=== PATIENT | female | born 1950 | race Caucasian/White ===

== ENCOUNTER 2022-03-30 09:48 | Outpatient (CLI) | payer MEDICARE, BC, SELFPAY ==
--- NOTE | 2022-03-30 10:15 | CRLHL7_ITS ---
For Patients: As a result of the Century Cures Act, medical imaging exams and procedure reports are released immediately into your electronic medical record. You may view this report before your referring provider. If you have questions, please contact your health care provider. INDICATION: Fall. COMPARISON: 11/02/2021. TECHNIQUE: Sagittal T1, T2, and STIR sequences. Axial T1 and T2 weighted sequences. FINDINGS: Degenerative grade 1 anterolisthesis of L4 on L5 and L5 on S1 measures approximate 5 mm. Otherwise, normal alignment. No fractures. No vertebral body loss of height. No evidence injury. No suspicious osseous lesions. Normal conus terminates at L1-2. T12-L1: No spinal canal or neural foraminal narrowing. L1-2: Disc degeneration posterior disc bulge. No narrowing of spinal canal. Mild narrowing of the bilateral foramina. Mild facet arthropathy. L2-3: Disc degeneration and posterior disc bulge. Moderate narrowing of spinal canal. Mild narrowing of the bilateral foramina. L3-4: Disc degeneration and posterior disc bulge. Moderate narrowing of spinal canal. Moderate right and mild left neural foraminal narrowing. Potential impingement of the exiting right L3 nerve root. Mild facet arthropathy. L4-5: Grade 1 anterolisthesis. Disc degeneration with unroofed posterior disc bulge. Combined facet arthropathy, there is moderate severe narrowing of spinal canal. Impingement of the traversing L5 nerve roots bilaterally. Moderate severe right and [id number] left neural foraminal narrowing. Impingement of the exiting right L4 nerve root. Severe facet arthropathy. L5-S1: Grade 1 anterolisthesis. Disc degeneration and posterior disc herniation. No narrowing of spinal canal. No impingement of the traversing S1 nerve roots. Mild to moderate narrowing of the bilateral foramina. Moderate facet arthropathy. Normal visualized SI joints. Right psoas muscle atrophy. IMPRESSION: 1. Degenerative grade 1 anterolisthesis of L4 on L5 and L5 on S1. 2. Otherwise, normal alignment. No fractures. 3. Stable lumbar spondylosis. 4. At L2-3, moderate narrowing of spinal canal 5. At L3-4, moderate narrowing of spinal canal. Moderate right and mild left neural foraminal narrowing. Potential impingement of the exiting right L3 nerve root 6. At L4-5, moderate to severe narrowing of spinal canal. Impingement of the traversing L5 nerve roots. Moderate severe right and [id number] left neural foraminal narrowing. Impingement of the exiting right L4 nerve root 7. At L5-S1, mild to moderate narrowing of the bilateral neural foramina Dictated by Demetri Wilson MD @ 03/30/2022 11:02:13 PM (Electronically Signed)
== END 2022-03-30 09:49 | disposition home or self-care (01) ==
LOC: MRI 09:53
PROVIDERS: PCP Internal Medicine; Visit Provider Neurological Surgery
DX: M41.86 Other forms of scoliosis, lumbar region (principal); M47.896 Other spondylosis, lumbar region; M51.26 Other intervertebral disc displacement, lumbar region; M51.27 Other intervertebral disc displacement, lumbosacral region
CPT/HCPCS: 72148

== ENCOUNTER 2022-05-24 10:28 | Outpatient (CLI) | payer MEDICARE, BC, SELFPAY ==
[2022-05-24 17:55] LABS: Chloride* 104 mmol/L (96-114); Potassium* 4.4 mmol/L (3.6-5.1); Sodium* 138 mmol/L (135-149)
[2022-05-24 17:58] LABS: Blood Urea Nitrogen* 20 mg/dL (7-30); Carbon Dioxide* 26 mmol/L (20-32); Creatinine* 0.7 mg/dL (0.5-1.5); Estimated Glomerular Filt Rate 92 ml/min
[2022-05-24 17:59] LABS: Calcium* 10.4 mg/dL (8.4-10.6); Glucose* 108 mg/dL (60-115)
== END 2022-05-24 10:29 | disposition home or self-care (01) ==
LOC: NFLDREF 10:29
PROVIDERS: PCP Internal Medicine; Visit Provider Internal Medicine
DX: Z01.818 Encounter for other preprocedural examination (principal); I10 Essential (primary) hypertension
CPT/HCPCS: 80048

== ENCOUNTER 2023-11-06 09:33 | Outpatient (CLI) | payer MEDICARE, BC, SELFPAY ==
--- OUTSIDE RECORDS SUMMARY | 2023-11-06 09:46 | XMS_ITS | Encounter Summary ---
Author Name Unknown Organization [facility] Address [address] [place] [address] Care Team Providers Care Brim Stretching Machine Operator Name Role Phone Chirag Paz MD Primary Care Provider [phone]- [phone] Encounter Details Date Type Department Care Team (Latest Contact Info) Description 08/04/2017 Consent for Procedure/Treatm ent [facility] [address] [place] [id number] CV IMMUNIZATION RECORD Social History Tobacco Use Types Packs/Day Years Used Date Smoking Tobacco: Former Cigarettes 0.5 10 0 04/03/2007 - 04/03/2017 Smokeless Tobacco: Never Alcohol Use Standard Drinks/Week Comments Yes 1 (1 standard drink = 0.6 oz pur e alcohol) once a month Sex and Gender Information Value Date Recorded Sex Assigned at Not on file Gender Identity Not on file Sexual Orientation Not on file documented as of this encounter Plan of Treatment Not on file documented as of this encounter Visit Diagnoses Not on filedocumented in this encounter Care Teams Brim Stretching Machine Operator Relationship Specialty Start Date End Date Chirag Paz MD [address] [place] [address] PCP - General 08/01/17 documented as of this encounter
--- OUTSIDE RECORDS SUMMARY | 2023-11-06 09:46 | XMS_ITS | Referral Summary ---
Author Name Unknown Organization [facility] Address [address] [facility] [place] [address] Care Team Providers Care Pin Worker Name Role Phone Chirag Paz MD Primary Care Provider Allergies Active Allergy Reactions Criticality Noted Date Comments Animal Dander Itching High 09/09/2008 Gabapentin Dizziness Low 02/24/2021 Morphine Itching Medium 02/24/2021 Oxycodone Other (See Comments) High 02/24/2021 Other reaction(s): Mental Status Change Shellfish Allergy Nausea and Vomiting High 1 Scallops /stomach upset Medications Medication Sig Dispensed Refills Start Date End Date Status cholecalciferol, vitamin D3, 1,000 unit tablet [CHOLECALCIFEROL, VITAMIN D3, 1,000 UNIT TABLET] Take 1,000 Units by mouth daily. 0 06/27/2014 Active cyanocobalamin (VITAMIN B-12) 1000 MCG tablet [CYANOCOBALAMIN (VITAMIN B-12) 1000 MCG TABLET] Take 1,000 mcg by mouth daily. 0 06/27/2014 Active sertraline (ZOLOFT) 100 MG tablet Take 100 mg by mouth daily 0 Active amLODIPine (NORVASC) 5 MG tablet Take 5 mg by mouth daily 0 Active labetalol (NORMODYNE) 100 MG tablet Take 100 mg by mouth every evening Takes at 5 PM 0 Active ibuprofen (ADVIL/MOTRIN) 200 MG tablet Take 400 mg by mouth every 8 hours as needed 0 04/26/2022 Active omeprazole (PRILOSEC) [address] capsule Take 20 mg by mouth daily as needed 0 08/10/2021 Active acetaminophen (TYLENOL) 500 MG tabletIndications:S angela stenosis, lumbar region, without neurogenic claudication Take 2 tablets (1,000 mg) by mouth 3 times daily 0 06/12/2022 Active SENNA-docusate sodium (SENNA S) 8.6-50 MG tabletIndications:D rug-induced constipation Take 1 tablet by mouth 2 times daily 0 06/12/2022 Active polyethylene glycol (MIRALAX) 17 GM/Dose powderIndications:D rug-induced constipation Take 17 g by mouth daily as needed for constipation 510 g 0 06/12/2022 Active hydrOXYzine (ATARAX) 10 MG tabletIndications:F usion of lumbar spine Take 1 tablet (10 mg) by mouth 3 times daily 60 tablet 3 07/12/2022 Active methocarbamol (ROBAXIN) 500 MG tabletIndications:F usion of lumbar spine Take 1 tablet (500 mg) by mouth 3 times daily 60 tablet 3 07/12/2022 Active gabapentin (NEURONTIN) 100 MG capsuleIndications: Spinal stenosis, lumbar region, without neurogenic claudication Take 1 capsule (100 mg) by mouth 3 times daily And 200mg qhs 30 capsule 0 07/16/2022 Active HYDROmorphone (DILAUDID) 2 MG tabletIndications:F usion of lumbar spine Take 1 tablet (2 mg) by mouth every 3 hours 6 tablet 0 07/25/2022 Active Active Problems Problem Noted Date Diagnosed Date AVM (arteriovenous malformation) brain 2 GERD (gastroesophageal reflux disease) 2 History of adenomatous polyp of colon 07/12/2022 History of migraine headaches 07/12/2022 Lumbar degenerative disc disease 07/12/2022 Nicotine dependence 07/12/2022 Osteopenia 07/12/2022 Reflux 07/12/2022 Smoking hx 07/12/2022 Status post cervical spinal arthrodesis 07/12/20 22 Obesity 07/12/2022 Adenomatous polyp 06/18/2022 Overview: 02-20-13 Second screening no polyps. 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 Hypoxia 06/18/2022 Cervical myelopathy 06/14/2022 Peripheral vascular disease (H24) 06/14/2022 Fusion of spine, site unspecified 06/07/2022 Osteoporosis 01/05/2022 Low back pain 01/01/2022 Leg pain, right 11/24/2021 Generalized weakness 11/17/2019 History of hepatitis 07/26/2018 Depression with anxiety 02/11/2018 Ataxic gait 02/11/2018 Hyperlipidemia 02/11/2018 Complicated grief 01/08/2018 Anxiety 08/07/2017 Chronic constipation 08/07/2017 Sleep disturbance 08/07/2017 Chronic ethmoidal sinusitis 10/09/2010 Overview: Dr. Cerda's plan on 11/20/2010: Chronic ethmoid and frontal sinusitis, now status post frontal sinusotomy and partial ethmoidectomy and placement of stratus catheter with an excellent result. I have recommended that she begin Flonase and follow up with me in 2 months' time. Notify me for any decline in her condition in the meantime. Major depressive disorder, recurrent episode, mi ld (H24) 08/21/2007 Diarrhea Overview: Created by Conversion Overweight Overview: Created by Conversion Rheumatoid arthritis Overview: Created by Conversion Carpal Tunnel Syndrome Overview: Created by Conversion Fatigue Overview: Created by Conversion Peripheral Neuropathy Overview: Created by Conversion Replacement Utility updated for latest IMO load Abnormal Glucose Overview: Created by Conversion Myalgia And Myositis Overview: Created by Conversion Immunizations Name Administration Dates Next Due COVID-19 MONOVALENT 12+ (Pfizer) 022,08/15/2021,12/27/2020,2020 Flu, Unspecified 10/10/2010,08/26/2008 Influenza Vaccine 65+ (Fluzone HD) 07/04/2021 Influenza Vaccine >6 months,quad, PF 06/24/2021 TDAP (Adacel,Boostrix) 08/26/2008 Social History Tobacco Use Types Packs/Day Years Used Date Smoking Tobacco: Former Cigarettes Smokeless Tobacco: Never Comments:Occas Nicorette gum Alcohol Use Standard Drinks/Week Comments Yes 0 (1 standard drink = 0.6 oz pur e alcohol) Occas wine Adolescent Education Answer Date Record ed Getting School Help Needed Not on file 06/29 Sex and Gender Information Value Date Recorded Sex Assigned at Not on file Gender Identity Not on file Sexual Orientation Not on file Last Filed Vital Signs Vital Sign Reading Time Taken Comments Blood Pressure 156/92 07/24/2022 7:05 AM CDT Pulse 70 07/24/2022 7:05 AM CDT Temperature 36.8 ??C (98.2 ??F) 07/24/2022 7:05 AM CD T Respiratory Rate 16 07/24/2022 7:05 AM CDT Oxygen Saturation 94% 07/24/2022 7:05 AM CDT Inhaled Oxygen Concentration - - Weight 84.5 kg (186 lb 3.2 oz) 07/24/2022 7:05 A M CDT Height 157.5 cm (5' 2.01) 07/24/2022 7:05 AM CD T Body Mass Index 34.05 07/24/2022 7:05 AM CDT Plan of Treatment Not on file Medical Devices Implanted Type Area Director Of Business Systems Device Identifier Shelf Expiration Date Model / Serial / Lot Screw Bn 45mm 7.5mm St Cls 2 Thrd 127mm Ns Pathloc-L Spne Lf - [id number] Implanted:Qty : 1 on 06/07/2022 by Samia Heredia MD at [facility] Metallic Hardware/Anc hor N/A: Spine Lumbar AEGIS SPINE 06/16/2025 [id number] S / / 110mm Won Implanted:Qty : 1 on 06/07/2022 by Samia Heredia MD at [facility] N/A: Back [id number] Advance Directives For more information, please contact: [phone] Latest Code Status on File Code Status Date Activated Date Inactivated Comments Full Code 06/07/2022 3:21 PM 06/11/2022 3:15 PM All b asic and advanced life-sustaining interventions are performed as appropriate Question Answer Comments Code status determined by: Discussion with patient/ legal decision maker Care Teams Pin Worker Relationship Specialty Start Date End Date Chirag Paz MD [facility] [address] [place] [address] PCP - General Emergency Medicine 06/07/22
--- OUTSIDE RECORDS SUMMARY | 2023-11-06 09:46 | XMS_ITS | Clinical Summary ---
Author Name Unknown Organization [place] Address [address] [facility] [place] [address] Care Team Providers Care Dye Can Operator Name Role Phone Chirag Paz MD [...] 07/24/2022 7:05 AM CDT Plan of Treatment Health Maintenance Due Date Last Done Comments ADVANCE CARE PLANNING 1950 ANNUAL REVIEW OF HM ORDERS 1950 CT COLONOGRAPHY 1950 DEPRESSION ACTION PLAN 1950 DEXA 1950 FIT 1950 FLEX SIG 1950 PHQ-9 1950 sDNA (Cologuard) 1950 HEPATITIS C SCREENING 1968 LUNG CANCER SCREENING 2000 ZOSTER IMMUNIZATION (1 of 2) 2000 RSV VACCINE ( & 60+) (1 - 1-dose 60+ series) 2010 MAMMO SCREENING 01/06/2015 01/06/2013 FALL RISK ASSESSMENT 2015 MEDICARE ANNUAL WELLNESS VISIT 2015 Pneumococcal Vaccine: 65+ Years (1 of 1 - PCV) 2015 LIPID 01/05/2018 01/05/2013 COLONOSCOPY 02/20/2023 02/20/2013 COLORECTAL CANCER SCREENING 02/20/2023 COVID-19 Vaccine (2022- season) 2023 01/24/2022, 08/15/2021, 12/27/2020, Additional history exists INFLUENZA VACCINE (#1) 2023 , 06/24/2021, 10/10/2010, Additional history exists GLUCOSE 06/09/2025 06/09/2022, 06/08/2022 DTAP/TDAP/TD IMMUNIZATION (4 - Td or Tdap) 05/24/2032 05/24/2022, 05/10/2015, 08/26/2008 HPV IMMUNIZATION Aged Out No longer e ligible based on patient's age to complete this topic IPV IMMUNIZATION Aged Out No longer e ligible based on patient's age to complete this topic MENINGITIS IMMUNIZATION Aged Out No l onger eligible based on patient's age to complete this topic RSV MONOCLONAL ANTIBODY Aged Out No l onger eligible based on patient's age to complete this topic Medical Devices Implanted Type Area Android Software Engineer Device Identifier Shelf Expiration Date Model / Serial / Lot Screw Bn 45mm 7.5mm St Cls 2 Thrd 127mm Ns Pathloc-L Spne Lf - [id number] Implanted:Qty : 1 on 06/07/2022 by Samia Heredia MD at [facility] Metallic Hardware/Anc hor N/A: Spine Lumbar AEGIS SPINE 06/16/2025 [id number] S / / 110mm Won Implanted:Qty : 1 on 06/07/2022 by Samia Heredia MD at [facility] N/A: Back [id number] / / [id number] Advance Directives For more information, please contact: [phone] Latest Code Status on File Code Status Date Activated Date Inactivated Comments Full Code 06/07/2022 3:21 PM 06/11/2022 3:15 PM All b asic and advanced life-sustaining interventions are performed as appropriate Question Answer Comments Code status determined by: Discussion with patient/ legal decision maker Care Teams Dye Can Operator Relationship Specialty Start Date End Date Chirag Paz MD [facility] [address] [place] [address] PCP - General Emergency Medicine 06/07/22
--- OUTSIDE RECORDS SUMMARY | 2023-11-06 09:46 | XMS_ITS | Encounter Summary ---
Author Name Unknown Organization [facility] Address [address] [place] [address] Care Team Providers Care Acid Splicer Name Role Phone Chirag Paz MD Primary Care Provider +1- [phone] Encounter Details Date Type Department Care Team (Late st Contact Info) Description 06/13/2022 Lab Requisition [facility] [address] [facility] [place], [place] [id number] Jailene Lux, REGULATORY MANAGER, INDEPENDENT PRODUCER [address] [place] [address] Anemia, unspecified; Essential (primary) hypertension Social History Tobacco Use Types Packs/Day Years [...] on file documented as of this encounter Procedures Procedure Name Priority Date/Time Associated Diagnosis Comments BASIC METABOLIC PANEL Routine 06/15/2022 7:20 AM CDT Anemia, unspecified Essential (primary) hypertension (HRC) HEMOGLOBIN, BLOOD Routine 06/15/2022 7:2 0 AM CDT Anemia, unspecified Essential (primary) hypertension (HRC) documented in this encounter Results * (ABNORMAL) Basic Metabolic Panel (06/15/2022 7:20 AM CDT) Sodium 141 136 - 145 mmol/L 06/15/2022 1:15 PM CDT [facility] Potassium 4.8 3.5 - 5.1 mmol/L 06/15/2022 1:15 PM CDT [facility] Chloride 106 98 - 109 mmol/L 06/15/2022 1:15 PM CDT [facility] CO2 25 20 - 29 mmol/L 06/15/2022 1:15 PM CDT [facility] Anion Gap 10 7 - 16 mmol/L 06/15/2022 1:15 PM CDT [facility] Calcium 9.7 8.4 - 10.4 mg/dL 06/15/2022 1:15 PM CDT [facility] BUN 25 7 - 26 mg/dL 06/15/2022 1:15 PM CDT [facility] Creatinine 0.70 0.55 - 1.02 mg/dL 06/15/2022 1:15 PM CDT [facility] GFR, Estimated >60 >60 mL/min/1.7 3m2 06/15/2022 1:15 PM CDT [facility] Glucose 116(H) 70 - 100 mg/dL 06/15/2022 1:15 PM CDT [facility] Comment:The given reference range is for the fasting state. Non-fasting reference range for glucose is 70 - 180 mg/dL. Hours Fasting 0 06/15/2022 1:15 PM CDT [facility] Blood Venipuncture / Unknown 06/15/2022 7:20 AM CDT 06/15/2022 12:43 PM CDT Jailene Lux REGULATORY MANAGER, INDEPENDENT PRODUCER LAB_[facility] [address] * Hemoglobin, Blood (06/15/2022 7:20 AM CDT) Hemoglobin 12.6 12.0 - 15.5 g/dL 06/15/2022 1:04 PM CDT [facility] Blood Venipuncture / Unknown 06/15/2022 7:20 AM CDT 06/15/2022 12:46 PM CDT Jailene Lux APRN, CNP [facility] [address] documented in this encounter Visit Diagnoses Diagnosis Anemia, unspecified Essential (primary) hypertension (HRC) Unspecified essential hypertension documented in this encounter Care Teams Acid Splicer Relationship Specialty Start Date End Date Chirag Paz MD [address] [place] [address] PCP - General 08/01/17 documented as of this encounter
--- OUTSIDE RECORDS SUMMARY | 2023-11-06 09:46 | XMS_ITS | Encounter Summary ---
Author Name Unknown Organization [facility] Address [address] [place] [address] Care Team Providers Care Collections Agent Name Role Phone Chirag Paz MD Primary Care Provider +1- [phone] Encounter Details Date Type Department Care Team (Latest Contact Info) Description 08/04/2017 Consent for Procedure/Treatm ent [facility] [address] [place] [id number] CV CONSENT FOR UESE OF PSYCHOTROPIC MED Social History Tobacco Use Types Packs/Day Years [...] on filedocumented in this encounter Care Teams Collections Agent Relationship Specialty Start Date End Date Chirag Paz MD [address] [place] [address] PCP - General 08/01/17 documented as of this encounter
--- OUTSIDE RECORDS SUMMARY | 2023-11-06 09:46 | XMS_ITS | Encounter Summary ---
Author Name Unknown Organization [facility] Address [address] [place] [address] Care Team Providers Care Alley Tender Name Role Phone Chirag Paz MD Primary Care Provider +1- [phone] Encounter Details Date Type Department Care Team (Late st Contact Info) Description 07/06/2022 Lab Requisition [facility] [address] [facility]. [place], [place] [address] Jailene Lux, ETHICAL HACKER, DISPATCH MANAGER [address] [place] [address] Anemia, unspecified; Essential (primary) hypertension Social History [...] Associated Diagnosis Comments BASIC METABOLIC PANEL Routine 07/09/2022 7:22 AM CDT Anemia, unspecified Essential (primary) hypertension (HRC) HEMOGLOBIN, BLOOD Routine 07/09/2022 7:2 2 AM CDT Anemia, unspecified Essential (primary) hypertension (HRC) documented in this encounter Results * Basic Metabolic Panel (07/09/2022 7:22 AM CDT) Sodium 141 136 - 145 mmol/L 07/09/2022 2:43 PM CDT [facility] Potassium 4.1 3.5 - 5.1 mmol/L 07/09/2022 2:43 PM CDT [facility] Chloride 106 98 - 109 mmol/L 07/09/2022 2:43 PM CDT [facility] CO2 25 20 - 29 mmol/L 07/09/2022 2:43 PM CDT [facility] Anion Gap 10 7 - 16 mmol/L 07/09/2022 2:43 PM CDT [facility] Calcium 8.9 8.4 - 10.4 mg/dL 07/09/2022 2:43 PM CDT [facility] BUN 17 7 - 26 mg/dL 07/09/2022 2:43 PM CDT [facility] Creatinine 0.69 0.55 - 1.02 mg/dL 07/09/2022 2:43 PM CDT [facility] Glucose 96 70 - 100 mg/dL 07/09/2022 2:43 PM CDT [facility] Comment:The given reference range is for the fasting state. Non-fasting reference range for glucose is 70 - 180 mg/dL. Hours Fasting Unknown 07/09/2022 2:43 PM CDT [facility] GFR, Estimated >60 >60 mL/min/1.7 3m2 07/09/2022 2:43 PM CDT [facility] Blood Venipuncture / Unknown 07/09/2022 7:22 AM CDT 07/09/2022 1:30 PM CDT Jailene Lux ETHICAL HACKER, DISPATCH MANAGER LAB_1 [facility] [address] * Hemoglobin, Blood (07/09/2022 7:22 AM CDT) Hemoglobin 12.3 12.0 - 15.5 g/dL 07/09/2022 2:09 PM CDT [facility] Blood Venipuncture / Unknown 07/09/2022 7:22 AM CDT 07/09/2022 1:33 PM CDT Jailene Lux APRN, CNP [facility] [address] documented in this encounter Visit Diagnoses Diagnosis Anemia, unspecified Essential (primary) hypertension (HRC) Unspecified essential hypertension documented in this encounter Care Teams Alley Tender Relationship Specialty Start Date End Date Chirag Paz MD [address] [place] [address] PCP - General 08/01/17 documented as of this encounter
--- OUTSIDE RECORDS SUMMARY | 2023-11-06 09:46 | XMS_ITS | Data Portability ---
Author Name Unknown Address [address] [place] [id number] Phone [phone] Organization [facility] - (IP) Address [address] [place] [address] Care Team Providers Care Elocution Teacher Name Role Phone CAROLYN PIPER Primary Care Provider AVILA MORGAN Referring Provider Assessment Encounter Date Assessment Date Assessment LastModified by Organization Details LastModified Time 11/30/2019 11/30/2019 A 69-year-old female, status post a right posterior temporal parietal craniectomy by Dr. Porter on 11/16/2019 for IPH with small cortical AVM. She presents today for a staple removal. Her incision is healing well and serene were removed today without issue. Discussed that we do not want her at this time to lift anything greater than 10 pounds and she should avoid bending and twisting activities, so doing her laundry is not an activity that she should be engaged at this time and it is okay for her to do sitting exercises, but again avoiding the bending, twisting activities as so as to avoid increasing her into cranial pressure would be advised. We will see her back on 12/15/2019 for her postoperative appointments. The patient understands and agrees with this plan. [email or web address] Not available 12/01/2019 09:25:18 12/15/2019 12/15/2019 This is a 69-year-old female, who presents back to Neurosurgery Clinic for continued follow-up after a right craniotomy for removal of intraparenchymal hemorrhage and arteriovenous malformation. Overall, she seems to be doing quite well and seems to be healing as expected from her surgery. She is doing quite well and living independently at home. She has no complaints or questions at this point. I did discuss continued follow-up including a repeat formal angiogram in approximately two months for follow-up of her AVM resection. I also would like follow-up on her incidentally found small right frontal AVM. We may discuss possible Gamma knife radiation treatment to that area depending on her next formal angiogram. If she has any further questions or concerns, I would be happy to see her back in Neurosurgery Clinic at any time. Otherwise, I will plan on follow-up with her after her angiogram in two months. Not available 12/16/2019 10:45:08 03/01/2020 03/01/2020 This is a 69-year-old female who presents back to neurosurgery clinic for scheduled follow-up. She underwent a right parietal craniotomy for removal of an AVM after spontaneous hemorrhage back in October. Overall, she seems to be doing quite well and is healing well after surgery. She did recently undergo a scheduled formal angiogram for follow-up. This did not show any residual or recurrent right parietal AVM. 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 I do not believe that will need any treatment at this time. I will plan on seeing her back in neurosurgery clinic in 1 year with another formal angiogram. If she has any new or worsening symptoms, any other questions or concerns, I would be happy to see her back in neurosurgery clinic at any time. Not available 03/02/2020 17:08:09 02/28/2021 02/28/2021 ASSESSMENT 1. Presenting to [facility] on November 11, 2019, with spontaneous rupture and intraparenchymal hemorrhage in the right parietal area with imaging revealing an anterior venous malformation. 2. Status post right parietal craniotomy for resection of AVM and spontaneous hemorrhage on November 16, 2019, by Dr. Porter. 3. 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 4. 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 PLAN 1. Harleen will be seen back on an as-needed basis, and she is in agreement with this plan. No repeat formal angiograms are needed at this time. 2. She may come off of aspirin from our standpoint. There is no neurosurgical reason to be on this medication. 3. These records will be forwarded to her primary care doctor, Dr. Piper in [place]. I have described to Harleen in detail the signs and symptoms that would prompt an urgent call to our office or a trip to the ED. She will call back with any further questions or concerns. 4. Harleen did mention to us at the end of our appointment that she is having some low back pain issues. We did discuss with her that our clinic can treat these issues. If she would like to be seen by our clinic, we would recommend that she obtain a copy of her last MRI and schedule an appointment. [email or web address] Not available 02/28/2021 13:59:08 Plan of Treatment Reminders Order Date Submit Date Provider Last Modified By Organization Details Last Modified Time Details Appointments None record ed. Lab None record ed. Referral None record ed. Procedures None record ed. Surgeries None record ed. Imaging None record ed. Medication Orders None record ed. Patient TargetsNo targets recorded. Patient InstructionsNo instructions recorded. Reason for Referral Interventional Radiologist Yosi baum for History of craniotomy repeat formal angiogram DX: PLEASE CALL PT SCHEDULE AN APPT/ S/P RIGHT CRANIOTOMY FOR REMOVAL OF INRAPARENCHYMAL HEMORRHAGE AND AVM Referring Physician: Franco Porter, Neurosurgery, Encounter Date: 12/15/2019 Results Created Date Observation Date Name Description Value Unit Range Abnormal Flag LastModifiedBy Organization Detail LastModifiedTime 11/17/19 20 11/16/2019 imagi ng/di agnos tic resul t No observ ation record ed. [email or web address] [facility] [address] [place] [address], [address], 11/17/2019 12:17:31 11/18/19 20 11/17/2019 CT, head, w/o contr ast No observ ation record ed. roland gao [facility] [address], [place], [address], 11/18/2019 11:03:43 12/15/19 20 12/15/2019 CT, brain , w/o contr ast No observ ation record ed. roland gao [facility] [address], [place], [address], 12/15/2019 15:32:44 02/27/20 20 02/26/2020 imagi ng/di agnos tic resul t No observ ation [facility]. [facility] [address] [place] [address] [place], [address], 02/29/2020 10:50:21 02/26/20 21 02/24/2021 imagi ng/di agnos tic resul t No observ ation record ed. [email or web address] Not Available 02/27/2021 10:05:13 Result Notes None recorded. Procedures Surgical History None recorded. Imaging Results Imaging Date Name Status LastModified by Organiz ation Details LastModified Time 11/16/2019 [facility] [address] [place] [address], [address], 11/17/2019 12:17:31 11/17/2019 CT, head, w/o contrast completed [facility] [address], [place], [address], 11/18/2019 11:03:43 12/15/2019 CT, brain, w/o contrast completed [facility] [address] [facility] [address], [place], [address], 12/15/2019 15:32:44 02/26/2020 imaging[facility]diagn [facility]stic [facility] [address], [place], [address], 02/29/2020 10:50:21 02/24/2021 imaging/diagn ostic result completed [email or web address] Information not available 02/27/2021 10:05:13 Procedure Notes None recorded. Medical Equipment None Reported. Medications Name Sig Start Date Stop Date Status Note LastModified by Organization Details LastModified Time lamotrigine 200 mg tablet active Not Available Not Available Not Available tizanidine 2 mg tablet active Not Available Not Available Not Available hydrocodone 5 mg-acetaminophen 325 mg tablet active Not Available Not Availabl e Not Available clonazepam 0.5 mg tablet active Not Available Not Available Not Available amlodipine 5 mg tablet active Not Available Not Available Not Available meloxicam 7.5 mg tablet active Not Available Not Available Not Available lorazepam 0.5 mg tablet active Not Available Not Available Not Available baclofen 10 mg tablet active Not Available Not Available Not Available pramipexole 0.125 mg tablet active Not Available Not Available No t Available gabapentin 300 mg capsule active Not Available Not Available Not Available omeprazole 20 mg capsule,delayed release active Not Available Not Available Not Available methylprednisolone 4 mg tablets in a dose pack active Not Available Not Available No t Available labetalol 100 mg tablet active Not Available Not Available Not Available lamotrigine 100 mg tablet active Not Available Not Available Not Available oxycodone 5 mg tablet active Not Available Not Available Not Available escitalopram 10 mg tablet active Not Available Not Available Not Available escitalopram 20 mg tablet active Not Available Not Available Not Available Xarelto 10 mg tablet active Not Available Not Available Not Available baclofen 5 mg tablet active Not Available Not Available Not Available Vitals None Recorded Social History None recorded. Functional Status None recorded. Mental Status None recorded. Family History Nothing Reported. Medical History No medical history recorded. Gynecological HistoryNo gynecological history recorded. Obstetrics History GPAL:G 0 P 0 0 0 0 Past Encounters Encounter ID Performer Location Encounter Start Date Encounter Closed Date Diagnosis/Indication [id number] Chris Goetz [facility] [id number] [place] [id number] 11/30/2019 13:42:04 11/30/2019 16:19:47 [id number] Altagracia Severino [facility] [id number] [place] [address], [place] [address] 12/15/2019 12:50:06 12/15/2019 13:05:38 [id number] Ana Maríavalerie Celesting [facility] [id number] [place] [address], [place] [address] 03/01/2020 11:17:59 03/01/2020 11:27:44 [id number] Ana Maríavalerie Celesting [facility] [id number] [place] [address], [place] [address] 02/28/2021 11:29:42 02/28/2021 12:44:52 Health Concerns Section Related Observation LastModified by Organization Detai ls LastModified Time None Recorded Concern Status LastModified by Organization Details LastModified Time None Recorded Advance Directives Directive None Recorded Payers Encounter Date Sequence Insurance Name Policy Number Policy Conley Covered Member ID Conley Member ID Guarantor Name 02/28/2021 1 [id number] [id number] Harleen Moonolo [id number] Harleen Monetccolo 03/01/2020 1 [id number] [id number] Harleen Monetccolo [id number] Harleen Little Ruccolo 12/15/2019 1 [place] [id number] Harleen Monetccolo [id number] Harleen Little Ruccolo 11/30/2019 1 [place] [id number] Harleen oMnetccolo [id number] Harleen Little Ruccolo Notes Date Note Type Note Provider Name and Address Organization Details Recorded Time 11/30/2019 text/html HPI Notes: I had the pleasure of seeing Harleen Gibson in [facility] today for staple removal. Harleen is a pleasant 69-year-old female, status post a right posterior temporal parietal craniotomy for IPH with a small cortical AVM performed by Dr. Porter on 11/16/2019. She is approximately two weeks out from that procedure. The patient states that the bulk of her headaches have resolved since this last week and prior to that she only had small headaches as compared to preoperatively. She does continue to have quite a bit of dizziness and therefore, uses a walker. She has been engaging in home exercises and goes the senior center and does some sitting yoga. She has been engaging and doing her on housework, which involves some bending over and doing her laundry and lifting closed basket. She denies any nausea, vomiting or issues with her incision and denies any motor or sensory problems. SONIDO Monson - [facility] 12/01/2019 09:25:33 12/15/2019 text/html HPI Notes: I had the pleasure of seeing Harleen in Neurosurgery Clinic today. She is a 69-year-old female, who is one month out from a right craniotomy for removal of an intraparenchymal hemorrhage and associated arteriovenous malformation. Overall, she seems to be doing quite well and seems to be recovering as expected from her procedure. She is living back at home now and seems to be doing just fine. She has no complaints. All of her headaches and dizziness have dramatically improved. She has no further concerns. SONIDO Martínez - [facility] 12/16/2019 10:45:35 03/01/2020 text/html HPI Notes: I had the pleasure of seeing Harleen back in neurosurgery clinic today. She is a 69-year-old female who underwent a craniotomy for resection of an AVM back in late October of this year. She presented with a spontaneous hemorrhage and was found to have a small right parietal AVM. Patient did very well postoperatively and returns to neurosurgery clinic today for scheduled follow-up. She recently underwent a formal angiogram for follow-up. She has not had any symptoms and overall seems to be recovering well from surgery. She has no complaints today. SONIDO Martínez - [facility] 03/02/2020 17:08:41 02/28/2021 text/html HPI Notes: Ms. Yosi jones returns to Dr. Porter's clinic, having last been seen on March 01, 2020. Of note, she is status post a right parietal craniotomy for resection of AVM that had spontaneously ruptured on November 16, 2019, by Dr. Porter. Also of note, in the last year she had a fall and fractured her left wrist in April or May 2020. She is status post open reduction and internal fixation for this. She also recently underwent a right hip surgery in November 2020 and was told that her femur fractured while inserting the metal alexandra and she has had some ongoing pain and numbness and tingling in the right anterior thigh since that time and is walking with a limp. In regards to her craniotomy procedure, Harleen did well after surgery. She then had a followup with Dr. Porter on December 15, 2019, with a postop head CT which showed resolution of her intraparenchymal hemorrhage. When he saw her last on March 01, 2020, they reviewed a formal angiogram done through [facility], which showed no residual parietal AVM, but there was a small distal right COLLIN pial fistula. This was also noticed on imaging in October. She returns now with a 1-year followup with repeat formal angiogram. Harleen reports that she is doing well. She has no complaints of headache, nausea, vision changes, no complaints of focal weakness. No speech or language disorders. No new sensorimotor issues. SONIDO Martínez - [facility] 03/02/2021 09:28:06 OBGyn Episode No OBEpisode recorded.
--- OUTSIDE RECORDS SUMMARY | 2023-11-06 09:46 | XMS_ITS | Encounter Summary ---
Author Name Unknown Organization [facility] Address [address] [place] [address] Care Team Providers Care Dry Color Mixer Name Role Phone Chirag Paz MD Primary Care Provider [facility] Unavailable Jailene Lux APRN SENIOR MANUFACTURING TECHNICIAN Unavailable + Encounter Details Date Type Department Care Team (Late st Contact Info) Description 05/25/2022 Orders Only [facility] [address] [place] [phone] Samia Heredia MD [facility] [address] [place] [address] Pre-operative laboratory examination (Primary Dx) Social History Tobacco Use Types Packs/Day Years Used Date Smoking Tobacco: Never Assessed Sex and Gender Information Value Date Recorded Sex Assigned at Not on file Gender Identity Not on file Sexual Orientation Not on file documented as of this encounter Plan of Treatment Not on file documented as of this encounter Visit Diagnoses Diagnosis Pre-operative laboratory examination- Primary Pre-procedural laboratory examination documented in this encounter Care Teams Dry Color Mixer Relationship Specialty Start Date End Date Chirag Paz MD [facility] [address] [place] [address] PCP - General Emergency Medicine 06/07/22 [facility] [address] [place] [phone] 06/11/22 07/26/22 Jailene Lux APRN SENIOR MANUFACTURING TECHNICIAN [facility] [place] [address] Assigned Pain Medication Provider 10/01/22 03/22/23 documented as of this encounter
--- OUTSIDE RECORDS SUMMARY | 2023-11-06 09:46 | XMS_ITS | Clinical Summary ---
Author Name Unknown Organization [facility] Address [place], [place] [address] Care Team Providers Care Sheeter Machine Operator Name Role Phone José Miguel Hall MD Unavailable Unavailable Chirag Paz MD Primary Care Provider Allergies Active Allergy Reactions Criticality Noted Date Comments Cats (Fur, Dander, Saliva) Itching High 09/09/2008 Gabapentin Dizziness Low 02/24/2021 Morphine Itching Medium 02/24/2021 Oxycodone Hallucinations,Menta l Status Change High 02/24/2021 Shellfish Containing Products Nausea And Vomiting High 10/16/2010 Scallops /stomach upset Medications Medication Sig Dispensed Refills Start Date End Date Status multivitamins-calcium -iron-minerals (MULTIPLE VITAMIN, WOMENS) Tab tablet Take 1 tablet by mouth once daily. 50+ 0 09/01/2010 Active cholecalciferol (VITAMIN D3) 1,000 unit tablet Take 1,000 Units by mouth once daily. 0 Active labetaloL (TRANDATE) 100 mg tabletIndications:Non traumatic hemorrhage of cerebral hemisphere, unspecified laterality (HC) Take 1 tablet by mouth 3 times daily. 90 tablet 0 11/19/2019 Active amLODIPine (NORVASC) 5 mg tabletIndications:Non traumatic hemorrhage of cerebral hemisphere, unspecified laterality (HC),Hypertension Take 1 tablet by mouth once daily. 30 tablet 0 11/19/2019 Active omeprazole (PRILOSEC) 20 mg Delayed-Release capsule Take 1 Capsule (20 mg) by mouth once daily before a meal. 0 08/10/2021 Active cyanocobalamin (Vitamin B-12) 50 mcg tablet Take by mouth once daily. 0 08/10/2021 Active ibuprofen (ADVIL; MOTRIN) 200 mg tablet 400 mg. As directed 0 04/26/2022 Active sertraline (ZOLOFT) 100 mg tabletIndications:HEATHER (generalized anxiety disorder),Recurrent major depressive disorder, in partial remission (HC) Take 1 Tablet (100 mg) by mouth once daily. 90 Tablet 3 05/07/2023 Active Active Problems Problem Noted Date Diagnosed Date Generalized weakness 11/17/2019 ICH (intracerebral hemorrhage) 11/11/2019 Complicated grief 01/08/2018 Cervical myelopathy 08/02/2017 Cervical spinal stenosis 08/01/2017 Family history of colon cancer 02/20/2013 Overview: Father colon cancer age 50s Chronic ethmoidal sinusitis 10/09/2010 Overview: Dr. Cerda's plan on 11/20/2010: Chronic ethmoid and frontal sinusitis, now status post frontal sinusotomy and partial ethmoidectomy and placement of stratus catheter with an excellent result. I have recommended that she begin Flonase and follow up with me in 2 months' time. Notify me for any decline in her condition in the meantime. Chronic frontal sinusitis 10/09/2010 Generalized anxiety disorder 08/10/2009 Major depressive disorder, recurrent episode, mi ld 08/21/2007 Smoking hx Post-menopausal Overview: age 49 Reflux Hyperlipidemia Adenomatous polyp Overview: 02-20-13 Second screening no polyps. 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 Health Maintenance Overview: Cholesterol Screening -12/14/04 Pap and Pelvic -01/26/05 Mammogram - 12/14/04 Dexa - 07/01/03 Colonoscopy -08/03/05 f/u in 5 yrs Eye Exam - none in chart Hypertension S/P craniotomy Hypoxia Resolved Problems Problem Noted Date Diagnosed Date Resolved Date Chronic ethmoidal sinusitis 10/09/2010 11/20/2010 Dysthymic disorder 07/09/2007 7 Anxiety associated with depression 11/14/2009 Encounters Date Type Department Care Team Description 11/05/2023 1:00 PM CURATOR HERBARIUM Procedure Only [facility] [address] [place] [address] Radha Potts, Zulema Ac Acupuncture 11/05/2023 Travel 10/29/2023 11:00 AM CURATOR HERBARIUM Procedure Only [facility] [address] [place] [address] Radha Potts, Zulema Ac Acupuncture 10/29/2023 Travel 10/22/2023 1:00 PM CURATOR HERBARIUM Procedure Only [facility] [address] [place] [address] Radha Potts, Zulema Ac Acupuncture 10/22/2023 Travel 10/15/2023 1:00 PM CURATOR HERBARIUM Procedure Only [facility] [address] [place] [address] Radha Potts, Zulema Ac Acupuncture 10/15/2023 Travel 10/08/2023 1:00 PM CURATOR HERBARIUM Procedure Only [facility] [address] [place] [address] Radha Potts, Zulema Ac Acupuncture 10/08/2023 Travel 10/03/2023 11:00 AM CURATOR HERBARIUM Procedure Only [facility] [address] [place] [address] Radha Potts, Zulema Ac Acupuncture 10/03/2023 Travel 09/10/2023 10:30 AM CURATOR HERBARIUM Procedure Only [facility] [address] [place] [address] Radha Potts, Zulema Ac Acupuncture 09/10/2023 Travel 09/03/2023 11:00 AM CURATOR HERBARIUM Procedure Only [facility] [address] [place] [address] Radha Potts, Zulema Ac Acupuncture 09/03/2023 Travel 08/20/2023 1:00 PM CURATOR HERBARIUM Procedure Only [facility] [address] [place] [address] aRdha Potts, Zulema Ac Acupuncture 08/20/2023 Travel 08/13/2023 10:30 AM CURATOR HERBARIUM Procedure Only [facility] [address] [facility] [address] Radha Potts L Ac Acupuncture 08/13/2023 Travel 08/06/2023 11:00 AM CURATOR HERBARIUM Procedure Only [facility] [address] [place] [address] Anne PottsZulema Avila Ac Acupuncture 08/06/2023 Travel from Last 3 Months Immunizations Name Administration Dates Next Due Influenza, High-dose Quadrivalent Inactivated Influenza, IIV3 (Age >=3 years) 10/10/2010,08/26 Influenza, IIV4 06/24/2021 Tdap 05/10/2015,08/26/2008 Tuberculin (PPD) 08/18/2017,08/04/2017 Family History Medical History Relation Name Comments Other Brother 1 X2 with colon p olyps GI Disease Brother 2 reflux Stroke Brother 3 Cancer-colon Father 55 dx age 56 Heart Disease Father Psychiatric illness Father schizoph everardo Cancer-breast Maternal Aunt 2 37 dx age 40 Cancer-breast Maternal Grandmother 60s dx age 79 Cancer-breast Mother 60s dx ag e 69 Diabetes Mother Hyperlipidemia Mother high choleste rol Psychiatric illness Son Depressi on with suicide attempt Relation Name Status Comments Brother 1 Brother 2 Brother 3 Father (Age 56) Colon CA, other health issues Maternal Aunt 1 (Age 40) Breast CA Maternal Aunt 2 Maternal Grandmother Mother (Age 69) Breast CA, other health issues Son Social History Tobacco Use Types Packs/Day Years Used Date Smoking Tobacco: Former Cigarettes Smokeless Tobacco: Never Tobacco Cessation:Counseling Given: Not Answered Comments:stopped smoking 08/03/21. using Nicorette Alcohol Use Standard Drinks/Week Comments Yes 1 (1 standard drink = 0.6 oz pure alcohol) 2 beers sparingly during weekends PHQ-2 Answer Date Recorded PHQ-2 TOTAL SCORE 2 05/07/2023 Social Connections Answer Date Recorded Frequency of Communication with Friends and Fami ly 0 05/28/2023 Financial Resource Strain Answer Date R ecorded Difficulty of Paying Living Expenses 3 05/28/2023 Difficulty of Paying Living Expenses Not on file 05/28/2023 Food Insecurity Answer Date Recorded Worried About Running Out of Food in the Last Ye ar 1 05/28/2023 Transportation Needs Answer Date Record ed Lack of Transportation (Medical) 1 05/28/2023 Housing Stability Answer Date Recorded Unable to Pay for Housing in the Last Year 1 05/28/2023 Sex and Gender Information Value Date Recorded Sex Assigned at Not on file Gender Identity Not on file Sexual Orientation Not on file Obstetrics History Last Filed Vital Signs Vital Sign Reading Time Taken Comments Blood Pressure 114/78 05/07/2023 10:51 AM CDT Pulse 84 05/07/2023 10:51 AM CDT Temperature 36.8 ??C (98.2 ??F) 02/24/2021 9:22 AM CD T Respiratory Rate 20 02/24/2021 2:00 PM CDT Oxygen Saturation 95% 02/24/2021 2:00 PM CDT Inhaled Oxygen Concentration - - Weight 86.5 kg (190 lb 9.6 oz) 05/07/2023 10:51 AM CDT Height 154.9 cm (5' 1) 02/24/2021 9:22 AM CDT Body Mass Index 36.01 02/24/2021 9:22 AM CDT Plan of Treatment Upcoming Encounters Date Type Department Care Team (Late st Contact Info) Description 11/11/2023 2:00 PM CURATOR HERBARIUM Procedure Only [facility] [address] [place] [address] Radha Potts, L Ac [address] [place] [address] 11/19/2023 1:00 PM CURATOR HERBARIUM Procedure Only [facility] [address] [place] [address] Radha Potts, L Ac [address] [place] [address] 11/26/2023 1:00 PM CURATOR HERBARIUM Procedure Only [facility] [address] [place] [address] Radha Potts, L Ac [address] [place] [address] 12/03/2023 1:00 PM CDT Procedure Only [facility] [address] [place] [address] Radha Potts, L Ac [address] [place] [address] 12/10/2023 1:00 PM CDT Procedure Only [facility] [address] [place] [address] Radha Potts, L Ac [address] [place] [address] 12/17/2023 1:00 PM CDT Procedure Only [facility] [address] [place] [address] Radha Potts, L Ac [address] [place] [address] Health Maintenance Due Date Last Done Comments Hepatitis C screening for ag e 18-79 1968 Zoster (shingles) series for age 50+ (1 of 2) 2000 Mammogram for age 45-75 09/09/2009 09/09/2008 DEXA/DXA scan for age 65+ 2015 Medicare Wellness for age 65+ 2015 Pneumococcal series for age 65+ (1 of 1 - PCV) 2015 BMI (ht and wt on same day) for age 18+ 06/19/2018 06/19/2017 Colonoscopy through age 75 02/20/202302/20, 02/20/2013, 02/20/2013, Additional history exists COVID-19 vaccine series (2022- season) 2023 01/24/2022, 08/15/2021, 12/27/2020, Additional history exists Influenza for age 65+ 05/24/2023 07/04/2021 , 06/24/2021, 10/10/2010, Additional history exists Depression screening for age 12+ 05/07/2024 05/07/2023, 10/30/2022, 04/26/2022, Additional history exists Lipids for age 45-75 11/11/2024 11/11/2019, 12/14/2004 ([facility] outside of [facility]) Tetanus booster 05/10/2025 05/10/2015, 12/2007 (Completed outside of [facility]), 08/26/2008 Tdap Completed 05/10/2015, 08/26/2008 Medical Devices Implanted Type Area Pressing Machine Operator Device Identifier Shelf Expiration Date Model / Serial / Lot Spacer Stratus Frontal Microflow - [id number] Implanted:Qty: 1 on 10/17/2010 at [facility] Right: Nose ACCLARENT 07/24/2012 [id number] # / / [id number] Screw Facial 2x10mm Matrixmandible Coarse Slf Tppng - [id number] Implanted:Qty: 2 on 08/01/2017 by Freddy Mayes MD at [facility] Spine J And J Depuy CMF [id number]# / / Plate Facial 2mm 30hole Synthes Adaption - [id number] Implanted:Qty: 1 on 08/01/2017 by Freddy Mayes MD at [facility] Spine J And J Depuy CMF [id number]# / / Screw Facial 2x8mm Matrixmandible Coarse Slf Tppng Implanted:Qty: 7 on 08/01/2017 by Freddy Mayes MD at [facility] Spine [id number] / / Description:SCREW FACIAL 2X8 MM MATRIXMANDIBLE COARSE SLF TPPNG Dura Neuro 1x1in Duragen Plus Non-Sut - [id number] Implanted:Qty: 1 on 11/16/2019 by Franco Porter MD at [facility] Right: Cranium Integra [employer] Bob 09/22/2022 [id number]# / / [id number] Screw Neuro 4mm Matrixneuro Slf Drill Titnm - [id number] Implanted:Qty: 7 on 11/16/2019 by Franco Porter MD at [facility] Right: Cranium J And J Depuy CMF [id number] 4.01# / / Plate Facial [id number] 4hole Synthes Box - [id number] Implanted:Qty: 2 on 11/16/2019 by Franco Porter MD at [facility] Right: Cranium J And J Depuy CMF [id number]# / / Procedures Procedure Name Priority Date/Time Associated Diagnosis Comments ACUPUNCTURE PLAN OF CARE Routine 024 12:52 PM CURATOR HERBARIUM Other low back pain ACUPUNCTURE PLAN OF CARE Routine 024 10:44 AM CURATOR HERBARIUM Other low back pain ACUPUNCTURE PLAN OF CARE Routine 024 12:41 PM CURATOR HERBARIUM Other low back pain ACUPUNCTURE PLAN OF CARE Routine 024 12:31 PM CURATOR HERBARIUM Other low back pain ACUPUNCTURE PLAN OF CARE Routine 024 12:58 PM CURATOR HERBARIUM Other low back pain ACUPUNCTURE PLAN OF CARE Routine 024 9:49 AM CURATOR HERBARIUM Other low back pain ACUPUNCTURE PLAN OF CARE Routine 024 11:41 AM CURATOR HERBARIUM Other low back pain ACUPUNCTURE PLAN OF CARE Routine 023 10:03 AM CURATOR HERBARIUM Other low back pain ACUPUNCTURE PLAN OF CARE Routine 023 10:41 AM CURATOR HERBARIUM Other low back pain ACUPUNCTURE PLAN OF CARE Routine 023 12:43 PM CURATOR HERBARIUM Other low back pain ACUPUNCTURE PLAN OF CARE Routine 023 10:14 AM CURATOR HERBARIUM Other low back pain ACUPUNCTURE PLAN OF CARE Routine 023 12:49 PM CURATOR HERBARIUM Other low back pain from Last 3 Months Advance Directives Latest Code Status on File Code Status Date Activated Date Inactivated Comments Full Code 11/11/2019 2:00 AM 11/19/2019 4:22 PM Code Status History Code Status Date Activated Date Inactivated Comments Full Code 08/01/2017 5:10 PM 08/04/2017 3:31 PM Full Code 08/01/2017 5:44 AM 08/01/2017 3:54 PM Care Teams Sheeter Machine Operator Relationship Specialty Start Date End Date Chirag Paz MD [address] [place] [id number] PCP - General Internal Medicine 07/04/17 José Miguel Hall MD Psychiatry 10/14/13
--- OUTSIDE RECORDS SUMMARY | 2023-11-06 09:46 | XMS_ITS | Clinical Summary ---
Author Name Unknown Organization [facility] Address [address] [place] [address] Care Team Providers Care Filler Room Attendant Name Role Phone Chirag Paz MD Primary Care Provider [phone] Source Comments You are receiving this document as you are listed as the primary care provider,follow-up provider, or the patient has been referred to you for consultation.This is in compliance with the Medicare and[facility] EHR Incentive Program,which states Providers who transition their patient to another setting of careor provider of care or refers their patient to another provider of care shouldprovide summary care record for each transition of care or referral. [facility] Allergies Active Allergy Reactions Criticality Noted Date Comments Cat Hair Extract Itching 09/09/2008 Shellfish-Derived Products Unknown 7 Medications Medication Sig Dispensed Refills Start Date End Date Status acetaminophen (TYLENOL) 500 MG tabletIndications:Blair n Take 2 Tabs by mouth every 8 hours. Maximum acetaminophen dose is 4000 mg in 24 hours Indications: Pain 100 Tab 11 09/04/2017 Active clonazePAM (KLONOPIN) 0.5 MG tablet Take 2 Tabs by mouth daily at bedtime. 30 Tab 09/04/2017 Active lamoTRIgine (LAMICTAL) 200 MG tablet Take 0.5 Tabs by mouth 4 times a day. 09/04/2017 Active escitalopram oxalate (LEXAPRO) 5 MG tablet Take 1 Tab by mouth two times a day. 09/04/2017 Active ondansetron (ZOFRAN-ODT) 4 MG disintegrating tabletIndications:jovita sea and vomiting Take 1 Tab by mouth every 8 hours as needed. Indications: nausea and vomiting 09/04/2017 Active polyethylene glycol (MIRALAX) packetIndications:Con stipation Take 1 Packet by mouth daily. Indications: Constipation 09/05/2017 Active sennosides-docusate sodium (SENNA-S,SENNA PLUS) 8.6-50 MG per tabletIndications:Con stipation Take 2 Tabs by mouth two times a day. Indications: Constipation 09/04/2017 Active melatonin 3 MG tablet Take 2 Tabs by mouth daily at bedtime. 100 Tab 3 09/04/2017 Active multivitamin with minerals (CERTAVITE,MYADEC) tabletIndications:vit silverio deficiency Take 1 Tab by mouth daily. Indications: vitamin deficiency 09/05/2017 Active cholecalciferol (VITAMIN D3) 1000 UNITS tabletIndications:Vit silverio D Deficiency Take 1 Tab by mouth daily. Indications: Vitamin D Deficiency 100 Tab 3 09/05/2017 Active oxyCODONE (ROXICODONE) 5 MG immediate release tablet Take 1-2 Tabs by mouth every 4 hours as needed for Pain. 30 Tab 09/05/2017 Active Active Problems Problem Noted Date Diagnosed Date Chronic constipation 08/07/2017 Anxiety 08/07/2017 Sleep disturbance 08/07/2017 Resolved Problems Problem Noted Date Diagnosed Date Resolved Date Neck pain 07/22/2017 02/27/2018 Low back pain 07/22/2017 02/27/2018 Immunizations Name Administration Dates Next Due TB Skin Test - Inpt (PPD) 08/18/2017,08/04/2017 Social History Tobacco Use Types Packs/Day Years [...] Sign Reading Time Taken Comments Blood Pressure 134/70 09/05/2017 5:11 AM UTILITY ENGINEER Pulse 68 09/05/2017 5:11 AM UTILITY ENGINEER Temperature 36.7 ??C (98.1 ??F) 09/05/2017 5:11 AM CS T Respiratory Rate 18 09/05/2017 5:11 AM UTILITY ENGINEER Oxygen Saturation 96% 09/05/2017 5:11 AM UTILITY ENGINEER Inhaled Oxygen Concentration - - Weight 79.5 kg (175 lb 3 oz) 09/05/2017 7:49 AM UTILITY ENGINEER Height 154.9 cm (5' 1) 08/04/2017 2:34 PM UTILITY ENGINEER Body Mass Index 33.1 08/04/2017 2:34 PM UTILITY ENGINEER Plan of Treatment Health Maintenance Due Date Last Done Comments Colon Cancer Screening Plan Due 1950 Hep C Screening (Preventive Services) 1950 Medicare Welcome Visit 1950 Mammogram 1950 COVID-19 Vaccine (#1) 1950 Cholesterol 1995 Zoster/Shingles (1 of 2) 2000 Dexa 2015 Pneumococcal 65+ Yrs (1 - PCV) 2015 DTaP/Tdap/Td (2 - Tdap) 08/26/2018 08/26/2008 Influenza (#1) 2023 HepA Aged Out No longer eligi ble based on patient's age to complete this topic HepB Aged Out No longer eligi ble based on patient's age to complete this topic Hib Aged Out No longer eligi ble based on patient's age to complete this topic IPV (Polio) Aged Out No longer eligi ble based on patient's age to complete this topic MCV4 Aged Out No longer eligi ble based on patient's age to complete this topic Advance Directives Latest Code Status on File Code Status Date Activated Date Inactivated Comments Full Code 08/04/2017 2:33 PM 09/05/2017 1:02 PM Care Teams Filler Room Attendant Relationship Specialty Start Date End Date Chirag Paz MD [address] [place] [address] PCP - General 08/01/17
--- NOTE | 2023-11-06 10:00 | CT_ITS ---
INDICATION: CHRONIC SINUSITIS. COMPARISON: 07/27/2020. TECHNIQUE: ROUTINE NONCONTRAST CT SINUSES. FINDINGS: THE SINUSES ARE CLEAR. THE DRAINAGE PATHWAYS ARE ALSO PATENT. MIDDLE EAR CAVITIES AND MASTOID AIR CELLS ARE NORMAL. THE VISUALIZED BRAIN PARENCHYMA IS UNREMARKABLE WITH THE EXCEPTION OF MILD ATROPHY. THE ORBITS ARE WITHIN NORMAL LIMITS. THERE IS CHRONIC NODULARITY OF THE INFERIOR TURBINATE MUCOSA AND PARADOXICAL TURN OF THE RIGHT MIDDLE TURBINATE. SLIGHT LEFTWARD CURVATURE OF THE NASAL SEPTUM WITH A LEFT-SIDED NASAL SEPTAL SPUR IS UNCHANGED. IMPRESSION: CLEAR SINUSES. PATENCY OF THE SINUS DRAINAGE PATHWAYS. SIMILAR APPEARANCE OF THE NASOPHARYNX WITH MILD CURVATURE OF THE NASAL SEPTUM TO THE LEFT WITH LEFT-SIDED NASAL SEPTAL SPUR.
== END 2023-11-06 09:34 | disposition home or self-care (01) ==
LOC: CT 09:35
PROVIDERS: PCP Internal Medicine; Visit Provider Otolaryngology
DX: J32.9 Chronic sinusitis, unspecified (principal)
CPT/HCPCS: 70486

== ENCOUNTER 2023-11-27 08:52 | Outpatient (CLI) | payer MEDICARE, BC, SELFPAY | END 2023-11-27 08:53 | disposition home or self-care (01) | LOC: NFLDREF 12-11 08:56 | PROVIDERS: PCP Internal Medicine; Referring Provider Internal Medicine; Visit Provider Internal Medicine | DX: E78.5 Hyperlipidemia, unspecified (principal); E66.9 Obesity, unspecified; M85.80 Other specified disorders of bone density and structure, unspecified site | CPT/HCPCS: 80053; 80061 ==

== ENCOUNTER 2023-12-02 09:49 | Outpatient (CLI) | payer MEDICARE, BC, SELFPAY | END 2023-12-02 09:50 | disposition home or self-care (01) | LOC: NFLDREF 12-04 07:54 | PROVIDERS: PCP Internal Medicine; Referring Provider Internal Medicine; Visit Provider Internal Medicine | DX: R30.0 Dysuria (principal) | CPT/HCPCS: 87086 ==

== ENCOUNTER 2023-12-20 09:09 | Day surgery (SDC) | payer MEDICARE, BC, SELFPAY ==
[2023-12-20] VITALS (18 sets, daily range): BP systolic 101–160; BP diastolic 64–120; PULSE 60–84; RESP 12–24; TEMP 36.1–37.6; O2SAT 88–97; BMI 37.5
[2023-12-20] MEDS: OXYMETAZOLINE 0.05% NASAL SPRAY 2 SPRAY NOSTRIL-B (10:15)
[2023-12-20] MEDS: SODIUM CHLORIDE 0.9 % (FLUSH) 10 ML SYRINGE IVF (10:19)
[2023-12-20] MEDS: LACTATED RINGERS 1000 ML 1,000 ML 35 ML IV (10:20)
[2023-12-20] MEDS: BUPIVACAINE 0.5%/EPINEPHRINE 0.9 MG (30.9 ML) INJECTION (10:39)
[2023-12-20] MEDS: MUPIROCIN 1 GM PACKET 1 APPLIC TOPICAL (12:07)
[2023-12-20] MEDS: COCAINE HCL 4 % 4 ML SOLUTION NOSTRIL-B (12:07)
[2023-12-20] MEDS: AYR SALINE NASAL GEL 1 APPLIC NOSTRIL-B (12:12)
--- NOTE | 2023-12-20 12:35 | W.PM.ENTPROC ---
Procedure Note Date of procedure: 12/20/23 Procedure: Preop diagnosis nasal headache nasal obstruction deviated septum inferior turbinate hypertrophy, right middle turbinate isi bullosa, bilateral anterior ethmoid chronic rhinosinusitis, retained tonsil tags bilateral Postoperative diagnosis same Procedure nasal septoplasty, submucous partial resection inferior turbinate, endoscopic partial resection right middle turbinate isi bullosa, endoscopic bilateral ethmoidectomies utilizing image guidance, direct laryngoscopy and excision of tonsil tags. Under general endotracheal anesthesia patient was prepped draped usual fashion nose decongested injected. Incision was made on the left side of the septal mucosa anterior to the area 3 4 deflection. The mucosa on either side of the deflection was elevated and it turbinate scissors was used to remove the deflected piece of bone cartilage. This was trimmed and returned to intraseptal space. The flap was then laid back down. A stab incision was made in the anterior of the right inferior turbinate a tunnel created with a Joie dissector. A conservative anterior submucous resection was performed with Tyshawn forceps. Then the Coblation was used to cauterize intramurally the anterior head inferior 10%. This was repeated on the left side. The isi bullosa was visualized and incised along its inferolateral aspect. Incision was cut up into the hollow portion of the turbinate and then the turbinate was crushed with the Khris forceps. The image guidance system was utilized to verify location and an anterior ethmoidectomy performed on the right side removing a moderate amount of polypoid tissue. This was repeated on the left side with similar findings. Only anterior ethmoidectomies were performed. Merocel pack coated in Bactroban was placed in each side nose followed by a positive pack. The McIvor mouth gag was inserted the tongue retracted forward. There were several tonsil tags these were simply removed with caught suction cautery. No other lesions were noted. The patient procedure well was taken recovery in satisfactory condition blood loss was less than 25 mL. Surgeon: Deniz Shelton MD
--- NOTE | 2023-12-20 12:45 | P.ANES_ITS ---
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
[2023-12-20] MEDS: fentaNYL 100 MCG/2 ML inj 50 MCG IVP (12:55)
[2023-12-20] MEDS: LACTATED RINGERS 1000 ML 1,000 ML 100 ML IV (13:39)
--- NOTE | 2023-12-20 15:05 | PC.NURSE ---
Pt arrived to the unit from surgery at 1315. She is A&O, afebrile and VSS. Bilat SCD's in place. PIV in right wrist infusing LR @ 100 mL/hr until PO intake is adequate and pt is able to void. Rates right throat pain at 1/10 which is adequately relieved by ice chips. Pt has tolerated PO Jell-O and applesauce so far with no c/o nausea. Dressing to nares is C/D/I. Reports last BM was 12/18. Pt is in agreement to discharge home this evening if all post-op requirements are met and pain is under control.
[2023-12-20] MEDS: ACETAMINOPHEN 325 MG TABLET PO (16:41)
[2023-12-20] MEDS: TRAMADOL HCL 50 MG TABLET PO (17:00)
[2023-12-20] MEDS: ACETAMINOPHEN 325 MG TABLET 650 MG PO (17:00)
== END 2023-12-20 18:10 | disposition home or self-care (01) ==
LOC: OR 09:11 → MEDSURG 09:12
PROVIDERS: PCP Internal Medicine; Visit Provider Otolaryngology
PROC: (CPT 31231; principal; 2023-12-20 10:45)
PROC: (CPT 30520; 2023-12-20 10:45)
DX: J34.2 Deviated nasal septum (principal); J34.3 Hypertrophy of nasal turbinates; J32.2 Chronic ethmoidal sinusitis; J34.89 Other specified disorders of nose and nasal sinuses; J35.8 Other chronic diseases of tonsils and adenoids; R51.9 Headache, unspecified
CPT/HCPCS: 30520; 30140; 31240; 31255; 42860; 00160; 88304; 88305; 99100; A9270; J0330; J1100; J2405; J2704; J3010; J7120

== ENCOUNTER 2024-01-09 13:00 | Outpatient (RCR) | payer MEDICARE, BC, SELFPAY | END 2024-03-19 10:41 | disposition home or self-care (01) | PROVIDERS: PCP Internal Medicine; Visit Provider General Practice | DX: M70.61 Trochanteric bursitis, right hip (principal); M70.62 Trochanteric bursitis, left hip; Z51.89 Encounter for other specified aftercare; M25.562 Pain in left knee | CPT/HCPCS: 97110; 97112; 97116; 97161; 97530; 97535 ==

== ENCOUNTER 2024-01-15 13:50 | Outpatient (CLI) | payer MEDICARE, BC, SELFPAY ==
--- OUTSIDE RECORDS SUMMARY | 2024-01-16 05:39 | XMS_ITS | Continuity of Care Document ---
Author Name Unknown Organization [facility] Address [address] [place] [address] Phone Care Team Providers Care Medical Record Clerk Name Role Phone Gerber CHA, PhD, Freddy Unavailable Unavai lable Allergies, Adverse Reactions, Alerts Substance Reaction Status Criticality No Known Allergies Active No Inform ation Medications Medication Instructions Dosage Effective Dates (start - stop) Status Comments IBUPROFEN (unknown strength) Not Available - Active EPIDIOLEX (unknown strength) Not Available - Active OMEPRAZOLE (unknown strength) Not Available - No Longer Active CLONAZEPAM (unknown strength) Not Available - No Longer Active ESCITALOPRAM OXALATE (unknown strength) Not Available - No Longer Active LAMOTRIGINE (unknown strength) Not Available - No Longer Active Procedures Procedure Date Office/Outpatient Visit,[facility], Mod 2021 Postop Followup Visit Pa Assist Cerv Laminoplasty W/Graft/Plat e Remove Neck Spine Lamina, 1 Seg 017 Cerv Laminoplasty W/Graft/Plate 017 Remove Neck Spine Lamina, 1 Seg 017 Office/Outpatient Visit,[facility], [facility] 2016 X-Ray Exam Of Neck Spine, 4+ Views X-Ray Exam Lwr Spine, Min 4 Views Advance Directives Directive Yes / No Effective Date File Name No Information Encounters Encounter Description Practice Location Reason(s) For Visit Diagnoses Date Provider Providers Copied on Encounter Office/Outpa tient Visit,Est, Mod [facility], [address], [place], [place], [id number] , [place] tel: [phone] [facility] Spinal stenosis, lumbar region with neurogenic claudication 2 Gerber Hayes. [facility] [place], [address], [place], [address], [place]. tel: [phone] Referring Provider: Hamzah Chavez, [address], [place], [address]. tel:[phone] [facility], [address], [place], [place], [id number] , [place] tel: [phone] [facility] Spinal stenosis, lumbar region with neurogenic claudicationEncou nter for other specified surgical aftercare 8 Gerber Hayes. [facility] [place], [address], [place], [address], [place]. tel: [phone] Referring Provider: Walter MeyersEspinela [address], [place], [address]. tel:[phone] [facility], [address], [place], [place], [id number] , [place] tel: [phone] [facility] Encounter for other specified surgical aftercare 7 Gerber Hayes. [facility] [place], [address], [place], [address], [place]. tel: [phone] Referring Provider: Walter MeyersEspinela [address], [place], [address]. tel:[phone] [facility], [address], [place], [place], [id number] , [place] tel: [phone] [facility] No Information 7 Godfrey Rodriguez. [facility] [place], [address], [place], [place], [id number] , [place]. tel: [phone] Referring Provider: Walter MeyersEspinela [address], [place], [address]. tel:[phone] [facility], [address], [place], [id number] , [place] tel:[phone] [facility] No Information 7 Gerber Hayes. [facility], [address] [place] [address] [address], [place], [address], [place]. tel:[phone] Referring Provider: Hamzah Chavez, [employer] [address] [facility], [place], [address]. tel:[phone] Office/Outpa tient Visit,[facility], [facility], [address], [place], [place], [id number] , [place] tel:[phone] [facility] Spinal stenosis, cervical regionMyelopathyS pondylolisthesis, lumbar region 7 Piedad Payne. [facility] [place], [address] [place] [address] [address], [place], [address], [place]. tel:[phone] Referring Provider: Hamzah Chavez, [employer] [address] [facility], [place], [address]. tel:[phone] Family History Family Member Type Diagnosis Age At Onset No Information Payers Payer name Insurance type Covered alliance party ID Luis burk(s) [facility] [id number] Medicare [facility] [id number] Social History Type Description Quantity Date Captured Comments Alcohol Use Details Unknown Caffeine Use Details Unknown Tobacco Use Status No Information Smoking Status Former smoker Non-Smoking Tobacco Use Details : No Details Available : No Details Available Sex Female Vital Signs Date / Time: Height Weight BMI Pulse Rate Blood Pressure Temperature Respiratory Rate Body Surface Area Head Circumference Head Circ. Percentile Wt./Navjot. Percentile BMI percentile Pulse Ox Inhaled Ox 12:33 PM 61.00 in 76.657 kg (169.00 lbs) 31.9 3 kg/m eter (2) Chief Complaint And Reason For Visit No Information Reason For Referral Reason For Referral No Information Plan Of Treatment Date Type Action Status Future Order: Radiology Order AP -Upt-Rdnx-Nfh Lum (APLatFlExL), Ordered on: Ordered Future Order: Radiology Order F/ E Cervical (F/Ecervical), Ordered on: Ordered Future Order: Radiology Order AP Lateral Cervical (APlatcerv), Ordered on: Ordered History Of Present Illness Encounter Date Complaint History Of Prese nt Illness No Information Functional Status Date Functional Assessmen t No Information Instructions Date Instruction Additional Infor mation Weight management: I nstructed to return to General Practitioner timeframe: 1 Month. Related to Overweight Weight Management Education Rela deepali to Overweight Assessments Type Assessment Date assessment Spinal stenosis, lumbar region w ith neurogenic claudication Patient Care Teams Name Effective Dates (start - stop) Status Members No Information
--- OUTSIDE RECORDS SUMMARY | 2024-01-16 05:39 | XMS_ITS | Encounter Summary ---
Author Name Unknown Organization [facility] Address [address] [place] [address] Care Team Providers Care Anatomy And Physiology Instructor Name Role Phone Chirag Paz MD Primary Care Provider [phone]- [phone] Encounter Details Date Type Department Care Team (Latest Contact Info) Description 08/04/2017 Consent for Procedure/Treatm ent [facility] [address] [place] [address] CV CONSENT FOR UESE OF PSYCHOTROPIC [...] on filedocumented in this encounter Care Teams Anatomy And Physiology Instructor Relationship Specialty Start Date End Date Chirag Paz MD [address] [place] [address] PCP - General 08/01/17 documented as of this encounter
--- OUTSIDE RECORDS SUMMARY | 2024-01-16 05:39 | XMS_ITS | Encounter Summary ---
Author Name Unknown Organization [facility] Address [address] [place] [address] Care Team Providers Care Prisoner Classification Interviewer Name Role Phone Chirag Paz MD Primary Care Provider [phone]- [phone] Encounter Details Date Type Department Care Team (Late st Contact Info) Description 06/13/2022 Lab Requisition [facility] [address] [facility] [place], [place] [address] Jailene Lux, TMR TEACHER, RESIN REMOVER [address] [place] [address] Anemia, unspecified; Essential (primary) hypertension Social History [...] - 145 mmol/L 06/15/2022 1:15 PM CDT [facility] Potassium 4.8 3.5 - 5.1 mmol/L 06/15/2022 1:15 PM CDT [facility] Chloride 106 98 - 109 mmol/L 06/15/2022 1:15 PM CDT [facility] CO2 25 20 - 29 mmol/L 06/15/2022 1:15 PM CDT [facility] Anion Gap 10 7 - 16 mmol/L 06/15/2022 1:15 PM CDT [facility] Calcium 9.7 8.4 - 10.4 mg/dL 06/15/2022 1:15 PM CDT [facility] BUN 25 7 - 26 mg/dL 06/15/2022 1:15 PM CDT [facility] Creatinine 0.70 0.55 - 1.02 mg/dL 06/15/2022 1:15 PM CDT [facility] GFR, Estimated >60 >60 mL/min/1.7 3m2 06/15/2022 1:15 PM CDT [facility] Glucose 116(H) 70 - 100 mg/dL 06/15/2022 1:15 PM CDT [facility] Comment:The given reference range is for the fasting state. Non-fasting reference range for glucose is 70 - 180 mg/dL. Hours Fasting 0 06/15/2022 1:15 PM CDT [facility] Blood Venipuncture / Unknown 06/15/2022 7:20 AM CDT 06/15/2022 12:43 PM CDT Jailene Lux TMR TEACHER, RESIN REMOVER LAB_1 [facility] [address] * Hemoglobin, Blood (06/15/2022 7:20 AM CDT) Hemoglobin 12.6 12.0 - 15.5 g/dL 06/15/2022 1:04 PM CDT [facility] Blood Venipuncture / Unknown 06/15/2022 7:20 AM CDT 06/15/2022 12:46 PM CDT Jailene Lux APRN, CNP LAB_1 [facility] [address] documented in this encounter Visit Diagnoses Diagnosis Anemia, unspecified Essential (primary) hypertension (HRC) Unspecified essential hypertension documented in this encounter Care Teams Prisoner Classification Interviewer Relationship Specialty Start Date End Date Chirag Paz MD [address] [place] [address] PCP - General 08/01/17 documented as of this encounter
--- OUTSIDE RECORDS SUMMARY | 2024-01-16 05:39 | XMS_ITS | Clinical Summary ---
Author Name Unknown Organization [facility] Address [address] [place] [address] Care Team Providers Care Crabber Name Role Phone Chirag Paz MD Primary Care Provider [phone]- [phone] Source Comments You are receiving this document as you are listed as the primary care provider,follow-up provider, or the patient has been referred to you for consultation.This is in compliance with the Medicare and[facility] Hospital[facility] EHR Incentive Program,which states Providers who transition their patient to another setting of careor provider of care or refers their patient to another provider of care shouldprovide summary care record for each transition of care or referral. [facility] Allergies Active Allergy Reactions Criticality Noted Date [...] Comments Blood Pressure 134/70 09/05/2017 5:11 AM TAFE TEACHER Pulse 68 09/05/2017 5:11 AM TAFE TEACHER Temperature 36.7 ??C (98.1 ??F) 09/05/2017 5:11 AM CS T Respiratory Rate 18 09/05/2017 5:11 AM TAFE TEACHER Oxygen Saturation 96% 09/05/2017 5:11 AM TAFE TEACHER Inhaled Oxygen Concentration - - Weight 79.5 kg (175 lb 3 oz) 09/05/2017 7:49 AM TAFE TEACHER Height 154.9 cm (5' 1) 08/04/2017 2:34 PM TAFE TEACHER Body Mass Index 33.1 08/04/2017 2:34 PM TAFE TEACHER Plan of Treatment Health Maintenance Due Date Last Done Comments Colon Cancer Screening Plan Due 1950 Hep C Screening (Preventive Services) 1950 Medicare Welcome Visit 1950 Mammogram 1950 Cholesterol 1995 Zoster/Shingles (1 of 2) 2000 Dexa 2015 Pneumococcal 65+ Yrs (1 - PCV) 2015 DTaP/Tdap/Td (2 - Tdap) 08/26/2018 08/26/2008 COVID-19 Vaccine (1 - 2022-2 4 season) 2023 Influenza (#1) 2023 HepA Aged Out No [...] age to complete this topic Advance Directives * Full Code (Latest Code Status on File) Date Activated Date Inactivated Comments 08/04/2017 2:33 PM 09/05/2017 1:02 PM Care Teams Crabber Relationship Specialty Start Date End Date Chirag Paz MD [address] [place] [address] PCP - General 08/01/17
--- OUTSIDE RECORDS SUMMARY | 2024-01-16 05:39 | XMS_ITS | Encounter Summary ---
Author Name Unknown Organization [facility] Address [address] [place] [address] Care Team Providers Care Spinner Operator Name Role Phone Chirag Paz MD Primary Care Provider +1- [phone] Encounter Details Date Type Department Care Team (Late st Contact Info) Description 07/06/2022 Lab Requisition [facility] [address] [facility]. [place], [place] [address] Jailene Lux, LOW PRESSURE KETTLE OPERATOR, QUALITY IMPROVEMENT SPECIALIST [address] [place] [address] Anemia, unspecified; Essential (primary) hypertension Social History [...] - 145 mmol/L 07/09/2022 2:43 PM CDT [facility] Potassium 4.1 3.5 - 5.1 mmol/L 07/09/2022 2:43 PM CDT [facility] Chloride 106 98 - 109 mmol/L 07/09/2022 2:43 PM CDT [facility] CO2 25 20 - 29 mmol/L 07/09/2022 2:43 PM CDT [facility] Anion Gap 10 7 - 16 mmol/L 07/09/2022 2:43 PM CDT [facility] Calcium 8.9 8.4 - 10.4 mg/dL 07/09/2022 2:43 PM CDT [facility] BUN 17 7 - 26 mg/dL 07/09/2022 2:43 PM CDT [facility] Creatinine 0.69 0.55 - 1.02 mg/dL 07/09/2022 2:43 PM CDT [facility] Glucose 96 70 - 100 mg/dL 07/09/2022 2:43 PM CDT [facility] Comment:The given reference range is for the fasting state. Non-fasting reference range for glucose is 70 - 180 mg/dL. Hours Fasting Unknown 07/09/2022 2:43 PM CDT [facility] GFR, Estimated >60 >60 mL/min/1.7 3m2 07/09/2022 2:43 PM CDT [facility] Blood Venipuncture / Unknown 07/09/2022 7:22 AM CDT 07/09/2022 1:30 PM CDT Jailene Lux LOW PRESSURE KETTLE OPERATOR, QUALITY IMPROVEMENT SPECIALIST LAB_1 [facility] [address] * Hemoglobin, Blood (07/09/2022 7:22 AM CDT) Hemoglobin 12.3 12.0 - 15.5 g/dL 07/09/2022 2:09 PM CDT [facility] Blood Venipuncture / Unknown 07/09/2022 7:22 AM CDT 07/09/2022 1:33 PM CDT Jailene Lux APRN, CNP LAB_1 [facility] [address] documented in this encounter Visit Diagnoses Diagnosis Anemia, unspecified Essential (primary) hypertension (HRC) Unspecified essential hypertension documented in this encounter Care Teams Spinner Operator Relationship Specialty Start Date End Date Chirag Paz MD [address] [place] [address] PCP - General 08/01/17 documented as of this encounter
--- OUTSIDE RECORDS SUMMARY | 2024-01-16 05:39 | XMS_ITS | Continuity of Care Document ---
Author Name Unknown Organization [facility] Address [address] [address] [place] [address] Phone Care Team Providers Care Environmental Planning Engineer Name Role Phone Jaswinder CHA, Bill Unavailable Unavailable Allergies, Adverse Reactions, Alerts Substance Reaction Status Criticality No Known allergies Medications Medication Instructions Dosage Effective Dates (start - stop) Status Comments lamotrigine 200 mg tablet take 1 tablet (200MG) by oral route 2 times every day 200 MG - Active vitamin B12 1,000 mcg-folic acid 400 mcg sublingual tablet - Active Vitamin D3 1,000 unit tablet take 1 Days by Oral route every day 1 Days - Active IBUPROFEN (unknown strength) as needed Not Available - Active ALLERGY Take 1 tablet by mouth daily - Active MiralaxBisacodylMagCit Colon Prep Use as directed - No Longer Active Effexor 75 mg Tab Take 1 tablet by mouth daily - No Longer Active Procedures Procedure Date Colonoscopy Flex; W/ablat Les 3 Colonoscopy Flex; W/bx Advance Directives Directive Yes / No Effective Date File Name Resuscitation Not Answered N/A N/A Life Support Not Answered N/A N/A Intubation Not Answered N/A N/A Antibiotics Not Answered N/A N/A IV Fluid Support Not Answered N/A N/A Tube Feed Not Answered N/A N/A Other Directive N/A N/A WARNING:The information contained in this section is historical and is provided for information only and does not constitute a legal document or any assurance that the information is still accurate. Please verify the information with the wei of the legal document before using it for clinical purposes. Encounters Encounter Description Practice Location Reason(s) For Visit Diagnoses Date Provider Providers Copied on Encounter [facility], [address] [address], [place], [id number], [place] tel:[phone] [facility] AVM W/o BleedColon Cancer ScreeningFamily Hx GI Tract CancerDiverticu losis Of ColonColon Cancer ScreeningDivert iculosis Of ColonAVM W/o BleedFamily Hx GI Tract Cancer 3 Jaswinder Khan. [address], [id number], [place]. tel:[phone] [facility], [address] [address], [facility], [address], [place] tel:[phone] [facility] No Information 3 Tolu Steven. [address], [id number], [place]. tel:[phone] [facility], [address] [address], [place], [address], [place] tel:[phone] [facility] Oth Dis-intestines 5 Michelle Bradley. [facility], [id number], [place]. tel:[phone] Referring Provider: Donato Cuevas MD , [facility] [place], [address]. tel:[phone] Family History Family Member Type Diagnosis Age At Onset No Information Payers Payer name Insurance type Covered republican ID Luis burk(s) formerly [facility] [id number] Social History Type Description Quantity Date Captured Comments Alcohol Use Details Unknown Caffeine Use Details Unknown Tobacco Use Status Smoking Status No Information Sex Female Chief Complaint And Reason For Visit No Information Reason For Referral Reason For Referral No Information History Of Present Illness Encounter Date Complaint History Of Prese nt Illness No Information Functional Status Date Functional Assessmen t No Information Instructions Date Instruction Additional Infor mation No Information Assessments Type Assessment Date No Information Patient Care Teams Name Effective Dates (start - stop) Status Members No Information
--- OUTSIDE RECORDS SUMMARY | 2024-01-16 05:39 | XMS_ITS | Encounter Summary ---
Author Name Unknown Organization [facility] Address [address] [place] [address] Care Team Providers Care Director Equipment Name Role Phone Chirag Paz MD Primary Care Provider [phone]- [phone] Encounter Details Date Type Department Care Team (Latest Contact Info) Description 08/04/2017 Consent for Procedure/Treatm ent [facility] [address] [place] [id number] CV IMMUNIZATION RECORD Social History Tobacco [...] on filedocumented in this encounter Care Teams Director Equipment Relationship Specialty Start Date End Date Chirag Paz MD [address] [place] [address] PCP - General 08/01/17 documented as of this encounter
--- OUTSIDE RECORDS SUMMARY | 2024-01-16 05:40 | XMS_ITS | Referral Summary ---
Author Name Unknown Organization [place] Address [address] [facility] [place] [address] Care Team Providers Care Financial Developer Name Role Phone Chirag Paz MD Primary [...] TABLET] Take 1,000 Units by mouth daily. 06/27/2014 Active cyanocobalamin (VITAMIN B-12) 1000 MCG tablet [CYANOCOBALAMIN (VITAMIN B-12) 1000 MCG TABLET] Take 1,000 mcg by mouth daily. 06/27/2014 Active sertraline (ZOLOFT) 100 MG tablet Take 100 mg by mouth daily Active amLODIPine (NORVASC) 5 MG tablet Take 5 mg by mouth daily Active labetalol (NORMODYNE) 100 MG tablet Take 100 mg by mouth every evening Takes at 5 PM Active ibuprofen (ADVIL/MOTRIN) 200 MG tablet Take 400 mg by mouth every 8 hours as needed 04/26/2022 Active omeprazole (PRILOSEC) [address] capsule Take 20 mg by mouth daily as needed 08/10/2021 Active acetaminophen (TYLENOL) 500 MG tabletIndications:S angela stenosis, lumbar region, without neurogenic claudication Take 2 tablets (1,000 mg) by mouth 3 times daily 06/12/2022 Active SENNA-docusate sodium (SENNA S) 8.6-50 MG tabletIndications:D rug-induced constipation Take 1 tablet by mouth 2 times daily 06/12/2022 Active polyethylene glycol (MIRALAX) 17 GM/Dose powderIndications:D rug-induced constipation Take 17 g by mouth daily as needed for constipation 510 g 06/12/2022 Active hydrOXYzine (ATARAX) 10 MG tabletIndications:F [...] times daily And 200mg qhs 30 capsule 07/16/2022 Active HYDROmorphone (DILAUDID) 2 MG tabletIndications:F usion of lumbar spine Take 1 tablet (2 mg) by mouth every 3 hours 6 tablet 07/25/2022 Active Active Problems Problem Noted Date Diagnosed Date AVM (arteriovenous malformation) brain 2 GERD (gastroesophageal reflux disease) 2 History of adenomatous polyp of colon 07/12/2022 History of migraine headaches 07/12/2022 Lumbar degenerative disc disease 07/12/2022 Nicotine dependence 07/12/2022 Osteopenia 07/12/2022 Reflux 07/12/2022 Smoking hx 07/12/2022 Status post cervical spinal arthrodesis 07/12/20 Obesity 07/12/2022 Adenomatous polyp 06/18/2022 Overview: 02-20-13 [...] on file Medical Devices Implanted Type Area Finish Saw Operator Device Identifier Shelf Expiration Date Model / Serial / Lot Screw Bn 55mm 7.5mm St Cls 2 Thrd 127mm Ns Pathloc-L Spne Lf - [id number] Implanted:Qty : 2 on 06/07/2022 by Samia Heredia MD at [facility] Metallic Hardware/Anc hor N/A: Spine Lumbar AEGIS SPINE 03/19/[id number] S / / [id number] Screw Bn 50mm 7.5mm St Cls 2 Thrd 127mm Ns Pathloc-L Spne Lf - [id number] Implanted:Qty : 4 on 06/07/2022 by Samia Heredia MD at [facility] Metallic Hardware/Anc hor N/A: Spine Lumbar AEGIS SPINE 03/19/[id number] S / / [id number] Screw Bn 55mm 7.5mm St Cls 2 Thrd 127mm Ns Pathloc-L Spne Lf - [id number] Implanted:Qty : 2 on 06/07/2022 by Samia Heredia MD at [facility] Metallic Hardware/Anc hor N/A: Spine Lumbar AEGIS SPINE 03/19/20274021-5385 S / / [id number] Screw Bn 45mm 7.5mm St Cls 2 Thrd 127mm Ns Pathloc-L Spne Lf - [id number] Implanted:Qty : 1 on 06/07/2022 by Samia Heredia MD at [facility] Metallic Hardware/Anc hor N/A: Spine Lumbar AEGIS SPINE 05/04/[id number] S / / [id number] Screw Bn 45mm 7.5mm St Cls 2 Thrd 127mm Ns Pathloc-L Spne Lf - [id number] Implanted:Qty : 1 on 06/07/2022 by Samia Heredia MD at [facility] Metallic Hardware/Anc hor N/A: Spine Lumbar AEGIS SPINE 06/16/[id number] S / / [id number] 10 Cc Malhotra-Tcp Sponge 25mm X 100 Mm Implanted:Qty : 1 on 06/07/2022 by Samia Heredia MD at [facility] N/A: Back 02/20/2027 / [id number] / [id number] 110mm Won Implanted:Qty : 1 on 06/07/2022 by Samia Heredia MD at [facility] N/A: Back [id number] 0 / 5 14 10 Cc Malhotra-Tcp Sponge 25mm X 100 Mm Implanted:Qty : 1 on 06/07/2022 by Samia Heredia MD at [facility] N/A: Back 02/20/2027 / [id number] / [id number] Screw- Star, Open Type 9.7, 5.6mm Implanted:Qty : 10 on 06/07/2022 by Samia Heredia MD at [facility] N/A: Back 02/22/2025 [id number] S / / [id number] 10cc Malhotra-Tcp Sponge 25mm X 100mm Implanted:Qty : 1 on 06/07/2022 by Samia Heredia MD at [facility] N/A: Spine Lumbar 02/20/2027 AMWS-TCP- 10 / [id number] / [id number] Ollif Arrow Cage 27x11 Implanted:Qty : 1 on 06/07/2022 by Samia Heredia MD at [facility] N/A: Back 8004 14 Ollif Arrow Cage 27x13 Implanted:Qty : 1 on 06/07/2022 by Samia Heredia MD at [facility] N/A: Back 8004 14 Ollif Arrow Cage 30x13 Implanted:Qty : 1 on 06/07/2022 by Samia Heredia MD at [facility] N/A: Back 312 14 Ollif Arrow Cage 30x14 Implanted:Qty : 1 on 06/07/2022 by Samia Heredia MD at [facility] N/A: Back 8004 120mm Straight Notched Won Implanted:Qty : 1 on 06/07/2022 by Samia Heredia MD at [facility] N/A: Back [id number] 0S / / [id number] Procedures Procedure Name Priority Date/Time Associated Diagnosis Comments BASIC METABOLIC PANEL Routine 06/09/2022 7:08 AM CDT COLONOSCOPY Routine 02/20/2013 12:00 AM CDT MA SCREENING BILATERAL Routine 01/06/2013 12:00 AM CDT LIPID PROFILE Routine 01/05/2013 10:41 AM CDT from Last 3 Months or Most Recently Relevant to Health Maintenance Results * (ABNORMAL) Basic metabolic panel (06/09/2022 7:08 AM CDT) Sodium 139 136 - 145 mmol/L 06/09/2022 7:50 AM CDT LABORATORY Potassium 3.9 3.4 - 5.3 mmol/L 06/09/2022 7:50 AM CDT LABORATORY Chloride 105 98 - 107 mmol/L 06/09/2022 7:50 AM CDT [facility] LAB[facility] Carbon Dioxide (CO2) 27 22 - 29 mmol/L 06/09/2022 7:50 AM CDT LABORATORY Anion [place] 7 7 - 15 mmol/L 06/09/2022 7:50 AM CDT LABORATORY Urea Nitrogen 15.6 8.0 - 23.0 mg/dL 06/09/2022 7:50 AM CDT LABORATORY Creatinine 0.62 0.51 - 0.95 mg/dL 06/09/2022 7:50 AM CDT LABORATORY Calcium 8.9 8.8 - 10.2 mg/dL 06/09/2022 7:50 AM CDT LABORATORY Glucose 108(H) 70 - 99 mg/dL 06/09/2022 7:50 AM CDT LABORATORY GFR Estimate >90 >60 mL/min/1.7 3m2 06/09/2022 7:50 AM CDT LABORATORY Comment:Effective August 242020 eGFRcr in adults is calculated using the 2020 CKD-EPI creatinine equation which includes age and gender (Mckenna et al., NEJM, DOI: 10.1056/PJXEkc1087420) Blood STRUCTURE OF RIGHT UPPER LIMB / Unknown Venipuncture / Unknown 06/09/2022 7:08 AM CDT 06/09/2022 7:16 AM CDT Chintan Avalos DO LAB - BLOOD ORDER [facility] [address] [facility] (1st floor, no room number) [place] [address], [facility] [phone] * COLONOSCOPY (02/20/2013 12:00 AM CDT) 02/20/2013 Historical Provider PROCEDURES * MA Screening Bilateral (01/06/2013 12:00 AM CDT) Anatomical Region Laterality Modality Breast Bilateral Other Narrative 01/06/2013 12:00 AM CDT FULL FIELD DIGITAL SCREENING MAMMOGRAM INDICATION: Screening. COMPARISON: 09/09/2008. ?? FINDINGS: Breast tissue is heterogeneously dense which may compromise mammography. No radiographic evidence of malignancy. No significant change from previous mammogram. CAD analysis was performed and used in the interpretation of this exam. ACR CATEGORY: 1 ??NEGATIVE CONFIDENTIAL MEDICAL REPORT [facility] [address] [address] Phone: ??[phone] ?Fax: ??[phone] Name: ??ANANYA CRISTINA Little ?? Account: ??[id number] IMRN: [id number] Number:[id number] Date of :1950 ?? Location: J Age: ??62 ?Sex: ??FInterpreted by: PHILLIP MARLEY MD Ordered By:REY CERVANTES [facility] Phy: ?REY CERVANTES Date of Service:01/06/13 Exam: ?REASON FOR EXAM: ? MG SCREENING MAMMOGRAM BILAT ?? SCREENING MAMMOGRAM RADIOLOGY REPORT This report is preliminary unless an electronic signature appears below. Electronically Signed By: ??PHILLIP MARLEY ? D: ??01/06/2013 ?13:31T: ??01/06/2013 ?? 13:31Tech: [id number] Procedure Note Provider, Historical - 04/13/2021 FULL FIELD DIGITAL SCREENING MAMMOGRAM INDICATION: Screening. COMPARISON: 09/09/2008. FINDINGS: Breast tissue is heterogeneously dense which may compromisemammography. No radiographic evidence of malignancy. No significant changefrom previous mammogram. CAD analysis was performed and used in the interpretation of this exam. ACR CATEGORY: 1 NEGATIVE CONFIDENTIAL MEDICAL REPORT [place] [address] Name: CRISTINA GIBSON Account: [id number] [facility] [id number] Number:[id number] Date of :1950 Location: [facility] Age: 62 Sex: FInterpreted by: PHILLIP MARLEY MD Ordered By:REY CERVANTES [facility] Phy: REY CERVANTES Date of Service:01/06/13 Exam: REASON FOR EXAM: MG SCREENING MAMMOGRAM BILAT SCREENING MAMMOGRAM RADIOLOGY REPORT This report is preliminary unless an electronic signature appears below. Electronically Signed By: PHILLIP MARLEY T: 01/06/2013 13:31Tech: [id number] Historical Provider IMG MAMMOGRAPHY KULDIP PANCHAL * (ABNORMAL) Lipid Profile (01/05/2013 10:41 AM CDT) LDL Cholesterol Calculated 134.6(H) <130.1 mg/dL 01/05/2013 10:41 AM CDT [facility] Cholesterol 233(H) <200 mg/dL 01/05/2013 10:41 AM CDT [facility] Direct Measure HDL 45 >39 mg/dL 01/05/2013 10:41 AM CDT [facility] Triglycerides 267(H) <151 mg/dL 01/05/2013 10:41 AM CDT [facility] 01/05/2013 10:4 1 AM CDT 01/05/2013 10:41 AM CDT Rey Cervantes MD LAB - BLOOD ORDERABL [facility] [address] [place] [address], [place] [facility] [address] [place] [address] from Last 3 Months or Most Recently Relevant to Health Maintenance Advance Directives For more information, please contact: [phone] * Full Code (Latest Code Status on File) Date Activated Date Inactivated Comments 06/07/2022 3:21 PM 06/11/2022 3:15 PM All basic an d advanced life-sustaining interventions are performed as appropriate Question Answer Comments Code status determined by: Discussion with nallely nt/ legal decision maker Care Teams Financial Developer Relationship Specialty Start Date End Date Chirag Paz MD [facility] [address] [place] [address] PCP - General Emergency Medicine 06/07/22
--- OUTSIDE RECORDS SUMMARY | 2024-01-16 05:40 | XMS_ITS | Clinical Summary ---
Author Name Unknown Organization [facility] Address [place], [place] [address] Care Team Providers Care Railroad Yard Worker Name Role Phone José Miguel Hall MD [...] Take 1,000 Units by mouth once daily. Active labetaloL (TRANDATE) 100 mg tabletIndications:Non traumatic hemorrhage of cerebral hemisphere, unspecified laterality (HC) Take 1 tablet by mouth 3 times daily. 90 tablet 11/19/2019 Active amLODIPine (NORVASC) 5 mg tabletIndications:Non traumatic hemorrhage of cerebral hemisphere, unspecified laterality (HC),Hypertension Take 1 tablet by mouth once daily. 30 tablet 11/19/2019 Active omeprazole (PRILOSEC) 20 mg Delayed-Release [...] Encounters Date Type Department Care Team Description 01/07/2024 1:00 PM CDT Procedure Only [facility] [address] [place] [address] Radha Potts L Ac Acupuncture 01/07/2024 Travel 12/20/2023 Lab Requisition [facility] [phone] Deniz Shelton MD 12/10/2023 1:00 PM CDT Procedure Only [facility] [address] [place] [address] Radha Potts, Zulema Ac Acupuncture 12/10/2023 Travel 12/03/2023 1:00 PM CDT Procedure Only [facility] [address] [place] [address] Radha Potts, Zulema Ac Acupuncture 12/03/2023 Travel 11/26/2023 1:00 PM CAR CONSTRUCTION SUPERINTENDENT Procedure Only [facility] [address] [place] [address] Radha Potts, Zulema Ac Acupuncture 11/26/2023 Travel 11/19/2023 1:00 PM CAR CONSTRUCTION SUPERINTENDENT Procedure Only [facility] [address] [place] [address] Radha Potts, Zulema Ac Acupuncture 11/19/2023 Travel 11/11/2023 2:00 PM CAR CONSTRUCTION SUPERINTENDENT Procedure Only [facility] [address] [place] [address] Radha Potts, Zulema Ac Acupuncture 11/11/2023 Travel 11/05/2023 1:00 PM CAR CONSTRUCTION SUPERINTENDENT Procedure Only [facility] [address] [place] [address] Radha Potts, Zulema Ac Acupuncture 11/05/2023 Travel 10/29/2023 11:00 AM CAR CONSTRUCTION SUPERINTENDENT Procedure Only [facility] [address] [place] [address] Radha Potts, Zulema Ac Acupuncture 10/29/2023 Travel 10/22/2023 1:00 PM CAR CONSTRUCTION SUPERINTENDENT Procedure Only [facility] [address] [place] [address] Radha Potts L Ac Acupuncture 10/22/2023 Travel from Last 3 Months Immunizations Name [...] Care Team (Late st Contact Info) Description 01/21/2024 1:00 PM CDT Procedure Only [facility] [address] [place] [address] Radha Potts, Zulema Ac [address] [place] [address] 01/28/2024 1:00 PM CDT Procedure Only [facility] [address] [place] [address] Radha Potts L Ac [address] [place] [address] 02/04/2024 1:00 PM CDT Procedure Only [facility] [address] [place] [address] Radha Potts, Zulema Ac [address] [place] [address] Health Maintenance Due Date Last Done Comments [...] 2023 01/24/2022, 08/15/2021, 12/27/2020, Additional history exists Depression screening for age 12+ 05/07/2024 05/07/2023, 10/30/2022, 04/26/2022, Additional history exists Influenza for age 65+ 05/24/2024 07/04/2021 , 06/24/2021, 10/10/2010, Additional history exists Lipids for age 45-75 11/11/2024 11/11/2019, 12/14/2004 (Completed outside of [employer] Tetanus booster 05/10/2025 05/10/2015, 12/2007 (Completed outside of [employer] 08/26/2008 Tdap Completed 05/10/2015, 08/26/2008 Medical Devices Implanted Type Area Game Farm Supervisor Device Identifier Shelf Expiration Date Model / Serial / Lot Spacer Stratus Frontal Microflow - [id number] Implanted:Qty: 1 on 10/17/2010 at Right: Nose ACCLARENT 07/24/2012 [id number] # / / [id number] Screw Facial 2x10mm Matrixmandible Coarse Slf Tppng - [id number] Implanted:Qty: 2 on 08/01/2017 by Freddy Mayes MD at [facility] Spine J And J Depuy CMF 401.940# / / Plate Facial 2mm 30hole Synthes Adaption - [id number] Implanted:Qty: 1 on 08/01/2017 by Freddy Mayes MD at [facility] Spine J And J Depuy CMF 447.380# / / Screw Facial 2x8mm Matrixmandible Coarse Slf Tppng Implanted:Qty: 7 on 08/01/2017 by Freddy Mayes MD at [facility] Spine 401.388 / / Description:SCREW FACIAL 2X8 MM MATRIXMANDIBLE COARSE SLF TPPNG Dura Neuro 1x1in Duragen Plus Non-Sut - [id number] Implanted:Qty: 1 on 11/16/2019 by Franco Porter MD at [facility] Right: Cranium Roamer 09/22/2022 [id number]# / / [id number] Screw Neuro 4mm Matrixneuro Slf Drill Titnm - [id number] Implanted:Qty: 7 on 11/16/2019 by Franco Porter MD at [facility] Right: Cranium J And J Depuy CMF [id number] 4.01# / / Plate Facial [id number] 4hole Synthes Box - [id number] Implanted:Qty: 2 on 11/16/2019 by Franco Porter MD at [facility] Right: Cranium J And J Depuy CMF [id number]# / / Procedures Procedure Name Priority Date/Time Associated Diagnosis Comments ACUPUNCTURE PLAN OF CARE Routine 01/07/2024 12:31 PM CDT Other low back pain LAB TRACKING EVENT Routine 12/20/2023 12 :14 PM CDT PATH TISSUE EXAM Routine 12/20/2023 12:1 4 PM CDT ACUPUNCTURE PLAN OF CARE Routine 12/10/2023 12:45 PM CDT Other low back pain ACUPUNCTURE PLAN OF CARE Routine 12/03/2023 12:44 PM CDT Other low back pain ACUPUNCTURE PLAN OF CARE Routine 11/26/2023 12:48 PM CAR CONSTRUCTION SUPERINTENDENT Other low back pain ACUPUNCTURE PLAN OF CARE Routine 11/19/2023 12:58 PM CAR CONSTRUCTION SUPERINTENDENT Other low back pain ACUPUNCTURE PLAN OF CARE Routine 11/11/2023 1:50 PM CAR CONSTRUCTION SUPERINTENDENT Other low back pain ACUPUNCTURE PLAN OF CARE Routine 11/05/2023 12:52 PM CAR CONSTRUCTION SUPERINTENDENT Other low back pain ACUPUNCTURE PLAN OF CARE Routine 10/29/2023 10:44 AM CAR CONSTRUCTION SUPERINTENDENT Other low back pain ACUPUNCTURE PLAN OF CARE Routine 10/22/2023 12:41 PM CAR CONSTRUCTION SUPERINTENDENT Other low back pain LIPID PANEL Today 11/11/2019 3:02 AM CAR CONSTRUCTION SUPERINTENDENT SCAN-COLONOSCOPY 02/20/2013 12:0 0 AM CDT XR MAMMO BILAT DIAG FFDM (IA) Routine 09/09/2008 7:40 AM CAR CONSTRUCTION SUPERINTENDENT Breast Pain Breast Lump from Last 3 Months or Most Recently Relevant to Health Maintenance Results * LAB TRACKING EVENT (12/20/2023 12:14 PM CDT) Other (Other) Client Collect / Unknown 12/20/2023 12:14 PM CDT 12/20/2023 9:21 PM CDT Deniz Shelton MD LAB BILL ONLY [facility] [address] [place] [address], * PATH TISSUE EXAM (12/20/2023 12:14 PM CDT) Case Report Pathology Report ?Case: [id number] ? Authorizing Provider: ??Deniz Shelton, ??Collected: ? 12/20/2023 1214 ? MD ? Ordering Location: ? [facility] ?Received: ?12/21/2023 0455 ? Pathologist: ? Genna Barry MD ? Specimens: ?? A) - Left Nasal ? B) - Right Sinus Contents ? C) - Left Sinus Contents ? 12/24/2023 3:13 PM CDT [facility] Final Diagnosis A) NASAL SEPTUM, LEFT, EXCISION: 1. Segment of bone, cartilage, and sinonasal tissue with chronic inflammation 2. No evidence of malignancy B) SINUS, RIGHT ETHMOID SINUS CONTENTS, RESECTION: 1. 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 Less than 1% of the inflammatory cells are eosinophils C) SINUS, LEFT ETHMOID SINUS CONTENTS, RESECTION: 1. 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 Approximately 5% of the inflammatory cells are eosinophils 12/24/2023 3:13 PM CDT [facility] Comment A) Deeper sections were examined in the interpretation for this specimen. 12/24/2023 3:13 PM CDT [facility] Clinical Information chronic sinusitis 12/24/2023 3:13 PM CDT [facility] Gross Description A) Received in formalin, labeled with the patient's name and left nasal septal lesion, is a 1.2 x 0.6 x 0.2 cm aggregate of matson, ragged mucosa intermixed with a scant amount of bone. ??The specimen is entirely submitted in 1 cassette. B) Received in formalin, labeled with the patient's name and right ethmoid, is a 2.1 x 1.0 x 0.2 cm aggregate of matson-pink mucosa admixed with matson delicate apparent bone. The specimen is entirely submitted in one cassette. C) Received in formalin, labeled with the patient's name and left ethmoid, is a 2.1 x 1.0 x 0.2 cm aggregate of matson-pink mucosa admixed with matson delicate apparent bone. The specimen is entirely submitted in one cassette. [place] 12/23/2023 12/24/2023 3:[address] [facility] Microscopic Description The final diagnosis is based on microscopic examination of appropriate sections of all specimens. 12/24/2023 3:[address] [facility] Additional Information Interpreted at [facility] - [address] [facility] [address], [place] [address] 12/24/2023 3:[address] [facility] Other (Left Nasal) 12/20/2023 12:14 PM CDT 12/21/2023 4:55 AM CDT Specimen (specimen) (Right Sinus Contents) 12/20/2023 12:14 PM CDT 12/21/2023 4:55 AM CDT Specimen (specimen) (Left Sinus Contents) 12/20/2023 12:14 PM CDT 12/21/2023 4:55 AM CDT Deniz Shelton MD PATHOLOGY/CYT OLOGY [facility] [address] [place] [address], * (ABNORMAL) Lipid Panel (11/11/2019 3:02 AM CAR CONSTRUCTION SUPERINTENDENT) CHOLESTEROL,TOTAL 203(H) 100 - 199 mg/dL 11/11/2019 3:33 AM CAR CONSTRUCTION SUPERINTENDENT [facility] TRIGLYCERIDES 184(H) <150 mg/dL 11/11/2019 3:33 AM CAR CONSTRUCTION SUPERINTENDENT [facility] HDL CHOLESTEROL 43 >40 mg/dL 0 3:33 AM CAR CONSTRUCTION SUPERINTENDENT [facility] NON-HDL CHOLESTEROL 160(H) <145 mg/dl 11/11/2019 3:33 AM [facility] CHOL/HDL RATIO 4.72(H) <4.50 11/11/2019 3:33 AM CAR CONSTRUCTION SUPERINTENDENT [facility] LDL CHOLESTEROL 123 <=130 mg/dL 11/11/2019 3:33 AM [facility] TR[facility] PROVIDER ORDERED STATUS RANDOM 11/11/2019 3:33 AM [facility] Blood BLOOD SPECIMEN / Unknown Venipuncture / Unknown 11/11/2019 3:02 AM CAR CONSTRUCTION SUPERINTENDENT 11/11/2019 3:08 AM CAR CONSTRUCTION SUPERINTENDENT Radha Saba MD CHEMISTRY [facility] [address] [place] [address], * SCAN-COLONOSCOPY (02/20/2013 12:00 AM CDT) Narrative 02/20/2013 12:00 AM CDT Procedure Note Scanner - 02/20/2013 12:00 AM CDT Scanner OTHER * XR MAMMO BILAT DIAG FFDM (09/09/2008 7:40 AM CAR CONSTRUCTION SUPERINTENDENT) MAMMOGRAM ACR 2 Benign Finding Anatomical Region Laterality Modality BREASTS, Breast Left, Breast Right Bilateral Mammography 09/09/2008 7:40 AM CAR CONSTRUCTION SUPERINTENDENT Narrative 09/09/2008 10:13 AM CAR CONSTRUCTION SUPERINTENDENT BILATERAL FULL-FIELD DIAGNOSTIC DIGITAL MAMMOGRAPHY WITH COMPUTER-AIDED DETECTION RIGHT BREAST ULTRASOUND INDICATION: ??Right breast pain. ?? COMPARISON: ??None. ?? TECHNIQUE: ??Bilateral full-field diagnostic digital mammography with computer-aided detection and ultrasound. REPORT: MAMMOGRAM: ??The breast tissue is heterogeneously dense, which may lower the sensitivity of mammography. ??No evidence of malignancy in either breast. ??Images were checked with CAD for a second read. ULTRASOUND: ??Targeted right breast ultrasound was then performed, targeted to the area of pain in the right breast. ??In the lower outer quadrant of the right breast, dilated subareolar ducts are identified with no suspicious masses. ?? Results given to the patient. ??She will meet for surgical consultation today. ?? ACR 2 Benign Finding Procedure Note Zuleika Lyon S - 09/09/2008 BILATERAL FULL-FIELD DIAGNOSTIC DIGITAL MAMMOGRAPHY WITH COMPUTER-AIDEDDETECTION RIGHT BREAST ULTRASOUND INDICATION: Right breast pain. COMPARISON: None. TECHNIQUE: Bilateral full-field diagnostic digital mammography withcomputer- aided detection and ultrasound. REPORT: MAMMOGRAM: The breast tissue is heterogeneously dense, which may lowerthe sensitivity of mammography. No evidence of malignancy in eitherbreast. Images were checked with CAD for a second read. ULTRASOUND: Targeted right breast ultrasound was then performed, targetedto the area of pain in the right breast. In the lower outer quadrant ofthe right breast, dilated subareolar ducts are identified with nosuspicious masses. Results given to the patient. She will meet for surgical consultationtoday. ACR 2 Benign Finding Inés Voss MD MAMMO from Last 3 Months or Most Recently Relevant to Health Maintenance Advance Directives * Full Code (Latest Code Status on File) Date Activated Date Inactivated Comments 11/11/2019 2:00 AM 11/19/2019 4:22 PM * Full Code Date Activated Date Inactivated Comments 08/01/2017 5:10 PM 08/04/2017 3:31 PM * Full Code Date Activated Date Inactivated Comments 08/01/2017 5:44 AM 08/01/2017 3:54 PM Care Teams Railroad Yard Worker Relationship Specialty Start Date End Date Chirag Paz MD [address] [place] [address] PCP - General Internal Medicine 07/04/17 José Miguel Hall MD Psychiatry 10/14/13
--- OUTSIDE RECORDS SUMMARY | 2024-01-16 05:40 | XMS_ITS | Clinical Summary ---
Author Name Unknown Organization [place] Address [address] [facility] [place] [address] Care Team Providers Care Line Mechanic Name Role Phone Chirag Paz MD Primary [...] 60+) (1 - 1-dose 60+ series) 2010 LIPID 01/05/2014 01/05/2013 MAMMO SCREENING 01/06/2015 01/06/2013 FALL RISK ASSESSMENT 2015 MEDICARE ANNUAL WELLNESS VISIT 2015 Pneumococcal Vaccine: 65+ Years (1 of 1 - PCV) 2015 COLONOSCOPY 02/20/2023 02/20/2013 COLORECTAL CANCER SCREENING 02/20/2023 COVID-19 Vaccine ( - season) 2023 01/24/2022, 08/15/2021, 12/27/2020, Additional history exists INFLUENZA VACCINE (#1) 2023 , 06/24/2021, 10/10/2010, Additional history exists GLUCOSE 06/09/2025 06/09/2022, 05/24, 05/24/2022 DTAP/TDAP/TD IMMUNIZATION (4 - Td or Tdap) [...] this topic Medical Devices Implanted Type Area Student Services Advisor Device Identifier Shelf Expiration Date Model / Serial / Lot Screw Bn 55mm 7.5mm St Cls 2 Thrd 127mm Ns Pathloc-L Spne Lf - [id number] Implanted:Qty : 2 on 06/07/2022 by Samia Heredia MD at [facility] Metallic Hardware/Anc hor N/A: Spine Lumbar AEGIS SPINE 03/19/20278975-9029 S / / [id number] Screw Bn 50mm 7.5mm St Cls 2 Thrd 127mm Ns Pathloc-L Spne Lf - [id number] Implanted:Qty : 4 on 06/07/2022 by Samia Heredia MD at [facility] Metallic Hardware/Anc hor N/A: Spine Lumbar AEGIS SPINE 03/19/20279954-9421 S / / [id number] Screw Bn 55mm 7.5mm St Cls 2 Thrd 127mm Ns Pathloc-L Spne Lf - [id number] Implanted:Qty : 2 on 06/07/2022 by Samia Heredia MD at [facility] Metallic Hardware/Anc hor N/A: Spine Lumbar AEGIS SPINE 03/19/20275953-1060 S / / [id number] Screw Bn 45mm 7.5mm St Cls 2 Thrd 127mm Ns Pathloc-L Spne Lf - [id number] Implanted:Qty : 1 on 06/07/2022 by Samia Heredia MD at [facility] Metallic Hardware/Anc hor N/A: Spine Lumbar AEGIS SPINE 05/04/20244943-2285 S / / [id number] Screw Bn 45mm 7.5mm St Cls 2 Thrd 127mm Ns Pathloc-L Spne Lf - [id number] Implanted:Qty : 1 on 06/07/2022 by Samia Heredia MD at [facility] Metallic Hardware/Anc hor N/A: Spine Lumbar AEGIS SPINE 06/16/20254025-0000 S / / [id number] 10 Cc Malhotra-Tcp Sponge 25mm X 100 Mm Implanted:Qty : 1 on 06/07/2022 by Samia Heredia MD at [facility] N/A: Back 02/20/2027 / [id number] / [id number] 110mm Won Implanted:Qty : 1 on 06/07/2022 by Samia Heredia MD at [facility] N/A: Back [id number] 8004 10 Cc Malhotra-Tcp Sponge 25mm X 100 Mm Implanted:Qty : 1 on 06/07/2022 by Samia Heredia MD at [facility] N/A: Back 02/20/2027 / [id number] / [id number] Set Screw- Star, Open Type 9.7, 5.6mm Implanted:Qty : 10 on 06/07/2022 by Samia Heredia MD at [facility] N/A: Back 02/22/2025 3761-5629 S / / [id number] 10cc Malhotra-Tcp Sponge 25mm X 100mm Implanted:Qty : 1 on 06/07/2022 by Samia Heredia MD at [facility] N/A: Spine Lumbar 02/20/2027 AMWS-TCP- 10 / [id number] / [id number] Ollif Arrow Cage 27x11 Implanted:Qty : 1 on 06/07/2022 by Samia Heredia MD at [facility] N/A: Back 8004 14 Ollif Arrow Cage 27x13 Implanted:Qty : 1 on 06/07/2022 by Samia Heredia MD at [facility] N/A: Back 8004 14 Ollif Arrow Cage 30x13 Implanted:Qty : 1 on 06/07/2022 by Samia Heredia MD at [facility] N/A: Back 312 14 Ollif Arrow Cage 30x14 Implanted:Qty : 1 on 06/07/2022 by Samia Heredia MD at [facility] N/A: Back 8004 120mm Straight Notched Won Implanted:Qty : 1 on 06/07/2022 by Samia Heredia MD at [facility] N/A: Back 4853-3045 0S / / [id number] Procedures Procedure Name Priority Date/Time Associated Diagnosis [...] - 145 mmol/L 06/09/2022 7:50 AM CDT [facility] Potassium 3.9 3.4 - 5.3 mmol/L 06/09/2022 7:50 AM CDT [facility] Chloride 105 98 - 107 mmol/L 06/09/2022 7:50 AM CDT [facility] Carbon Dioxide (CO2) 27 22 - 29 mmol/L 06/09/2022 7:50 AM CDT [facility] Anion Gap 7 7 - 15 mmol/L 06/09/2022 7:50 AM CDT [facility] Urea Nitrogen 15.6 8.0 - 23.0 mg/dL 06/09/2022 7:50 AM CDT [facility] Creatinine 0.62 0.51 - 0.95 mg/dL 06/09/2022 7:50 AM CDT [facility]OR[facility] Calcium 8.9 8.8 - 10.2 mg/dL 06/09/2022 7:50 AM CDT [facility] Glucose 108(H) 70 - 99 mg/dL 06/09/2022 7:50 AM CDT [facility] GFR Estimate >90 >60 mL/min/1.7 3m2 06/09/2022 7:50 AM CDT [facility] Comment:Effective August 242020 eGFRcr in adults is calculated using the 2020 CKD-EPI creatinine equation which includes age and gender (Mckenna et al., NEJ, DOI: 10.1056/FTNLrh2578799) Blood STRUCTURE OF RIGHT UPPER LIMB / Unknown Venipuncture / Unknown 06/09/2022 7:08 AM CDT 06/09/2022 7:16 AM CDT Chintan Avalos DO LAB - BLOOD ORDER [facility] [address] Lab (1st floor, no room number) [place] [address], [facility] [phone] * COLONOSCOPY (02/20/2013 12:00 AM CDT) 02/20/2013 [...] ACR CATEGORY: 1 ??NEGATIVE CONFIDENTIAL MEDICAL REPORT [address] [address] Phone: ??[phone] ?Fax: ??[phone] Name: ??CRISTINA GIBSON ?? Account: ??[id number] IMRN: [id number] Number:[id number] Date of :1950 ?? Location: [facility] Age: ??62 ?Sex: ??FInterpreted by: PHILLIP MARLEY MD Ordered By:STEWART MONTERO [facility] Phy: ?STEWART MONTERO Date of Service:01/06/13 Exam: ?REASON FOR EXAM: ? MG SCREENING MAMMOGRAM BILAT ?? SCREENING MAMMOGRAM RADIOLOGY REPORT This report is preliminary unless an electronic signature appears below. Electronically Signed By: ??PHILLIP MARLEY ? D: ??01/06/2013 ?13:31T: ??01/06/2013 ?? 13:31Tech: [id number] Procedure Note Provider, Historical - 04/13/2021 FULL FIELD DIGITAL SCREENING MAMMOGRAM INDICATION: Screening. COMPARISON: 09/09/2008. FINDINGS: Breast tissue is heterogeneously dense which may compromisemammography. No radiographic evidence of malignancy. No significant changefrom previous mammogram. CAD analysis was performed and used in the interpretation of this exam. ACR CATEGORY: 1 NEGATIVE CONFIDENTIAL MEDICAL REPORT [facility] [address] [address] Name: CRISTINA GIBSON Account: [id number] IMRN: [id number] Number:[id number] Date of :1950 Location: J Age: 62 Sex: FInterpreted by: PHILLIP MARLEY MD Ordered By:STEWART MONTERO [facility] Phy: STEWART MONTERO Date of Service:01/06/13 Exam: REASON FOR EXAM: MG SCREENING MAMMOGRAM BILAT SCREENING MAMMOGRAM RADIOLOGY REPORT This report is preliminary unless an electronic signature appears below. Electronically Signed By: PHILLIP MARLEY T: 01/06/2013 13:31Tech: [id number] Historical Provider IMG MAMMOGRAPHY ANTONIOTenisha PANCHAL * (ABNORMAL) Lipid Profile (01/05/2013 10:41 AM CDT) LDL Cholesterol Calculated 134.6(H) <130.1 mg/dL 01/05/2013 10:41 AM CDT [facility] Cholesterol 233(H) <200 mg/dL 01/05/2013 10:41 AM CDT [facility] Direct Measure HDL 45 >39 mg/dL 01/05/2013 10:41 AM CDT [facility] Triglycerides 267(H) <151 mg/dL 01/05/2013 10:41 AM CDT [facility] 01/05/2013 10:4 1 AM CDT 01/05/2013 10:41 AM CDT Stewart Montero MD LAB - BLOOD ORDERABL [facility] [address] [place] [address], [facility] [address] [place] [address] from Last 3 Months or Most Recently Relevant to Health Maintenance Advance Directives For more information, please contact: [phone] * Full Code (Latest Code Status on File) Date Activated Date Inactivated Comments 06/07/2022 3:21 PM 06/11/2022 3:15 PM All basic an d advanced life-sustaining interventions are performed as appropriate Question Answer Comments Code status determined by: Discussion with nallely haider/ legal decision maker Care Teams Line Mechanic Relationship Specialty Start Date End Date Chirag Paz MD [facility] [address] [place] [address] PCP - General Emergency Medicine 06/07/22
--- OUTSIDE RECORDS SUMMARY | 2024-01-16 05:40 | XMS_ITS | Encounter Summary ---
Author Name Unknown Organization [place] Address [address] [facility] [place] [address] Care Team Providers Care Holder Pile Driving Name Role Phone Chirag Paz MD Primary Care Provider [facility] Unavailable Jailene Lux APRN SURGICAL DRESSING MAKER Unavailable + Encounter Details Date Type Department Care Team (Late st Contact Info) Description 05/25/2022 Orders Only [facility] [address] [place] [phone] Samia Heredia MD [facility] [address] [place] [address] Pre-operative laboratory examination (Primary Dx) Social History [...] examination documented in this encounter Care Teams Holder Pile Driving Relationship Specialty Start Date End Date Chirag Paz MD [facility] [address] [place] [address] PCP - General Emergency Medicine 06/07/22 [facility] [address] [place] [phone] 06/11/22 07/26/22 Jailene Lux APRN SURGICAL DRESSING MAKER [facility] [place] [place] [address] Assigned Pain Medication Provider 10/01/22 03/22/23 documented as of this encounter
== END 2024-01-15 13:51 | disposition home or self-care (01) ==
LOC: NFLDREF 01-16 05:37
PROVIDERS: PCP Internal Medicine; Referring Provider Internal Medicine; Visit Provider Obstetrics & Gynecology
DX: R10.2 Pelvic and perineal pain (principal); N95.2 Postmenopausal atrophic vaginitis; Z11.9 Encounter for screening for infectious and parasitic diseases, unspecified
CPT/HCPCS: 87086; 87491; 87591

== ENCOUNTER 2024-09-30 13:29 | Outpatient (CLI) | payer MEDICARE, BC, SELFPAY | END 2024-09-30 13:30 | disposition home or self-care (01) | LOC: NFLDREF 10-09 03:37 | PROVIDERS: PCP Internal Medicine; Referring Provider Internal Medicine; Visit Provider Internal Medicine | DX: R30.0 Dysuria (principal); R15.9 Full incontinence of feces | CPT/HCPCS: 87086 ==

== ENCOUNTER 2024-11-04 19:04 | Outpatient (CLI) | payer MEDICARE, BC, SELFPAY | END 2024-11-04 19:05 | disposition home or self-care (01) | LOC: AMB 11-09 08:17 | PROVIDERS: PCP Internal Medicine; Visit Provider Emergency Medicine | DX: R51.9 Headache, unspecified (principal); R53.1 Weakness; R05.9 Cough, unspecified | CPT/HCPCS: A0425; A0427; A0428 ==

== ENCOUNTER 2024-11-04 19:29 | Emergency (ER) | payer MEDICARE, BC, SELFPAY ==
--- OUTSIDE RECORDS SUMMARY | 2024-11-04 19:31 | XMS_ITS | Encounter Summary ---
Author Organization [facility] Address [address] [place] [address] Care Team Providers Care Architecture Technician Name Role Phone Chirag Paz MD Primary Care Provider [phone]- [phone] Encounter Details Date Type Department Care Team (Latest Contact Info) Description 08/04/2017 Consent for Procedure/Treatm ent [facility] [address] [place] [phone] CV CONSENT FOR UESE OF PSYCHOTROPIC MED Social History Tobacco Use Types Packs/Day Years Used Date Smoking Tobacco: Former Cigarettes 0.5 10 0 04/03/2007 - 04/03/2017 Smokeless Tobacco: Never Alcohol Use Standard Drinks/Week Comments Yes 1 (1 standard drink = 0.6 oz pur e alcohol) once a month Comments Unknown Sex and Gender Information Value Date Recorded Sex Assigned at Not on file Legal Sex Female 5:36 AM CDT Gender Identity Not on file Sexual Orientation Not on file documented as of this encounter Plan of Treatment Not on file documented as of this encounter Visit Diagnoses Not on filedocumented in this encounter Care Teams Architecture Technician Relationship Specialty Start Date End Date Chirag Paz MD [address] [place] [address] PCP - General 08/01/17 documented as of this encounter
--- OUTSIDE RECORDS SUMMARY | 2024-11-04 19:31 | XMS_ITS | Encounter Summary ---
Author Organization [facility] Address [address] [place] [address] Care Team Providers Care Beverage Distiller Name Role Phone Chirag Paz MD Primary Care Provider [phone]- [phone] Encounter Details Date Type Department Care Team (Latest Contact Info) Description 08/04/2017 Consent for Procedure/Treatm ent [facility] [address] [place] [phone] CV IMMUNIZATION RECORD Social History Tobacco [...] on filedocumented in this encounter Care Teams Beverage Distiller Relationship Specialty Start Date End Date Chirag Paz MD [address] [place] [address] PCP - General 08/01/17 documented as of this encounter
--- OUTSIDE RECORDS SUMMARY | 2024-11-04 19:31 | XMS_ITS | Continuity of Care Document ---
Author [facility] Address [address] [place] [address] Assessment No assessment recorded. Plan of Treatment Reminders Order Date Submit Date Provider Last Modified By Organization Details Last Modified Time Details Appointments None record ed. Lab None record ed. Referral None record ed. Procedures None record ed. Surgeries None record ed. Imaging None record ed. Medication Orders None record ed. Patient TargetsNo targets recorded. Patient InstructionsNo instructions recorded. Reason for Referral None Reported. Problems Name Problem SNOMED Code Status Onset Date Resolution Date Notes Provider Name and Address Organization Details Recorded Time Somatic dysfunction of pelvic region 767536767 Active 2024 Brian Ryan DC [address], [place], [address] , [facility] 5 15:54:35 Thoracic segmental dysfunction 445809853 Active 2024 Brian Ryan DC [address], [place], [address] , [facility] 5 15:42:49 Low back pain 131591409 Active 2024 Brian Ryan DC [address], [place], [address] , [facility] 5 15:42:49 Lumbar segmental dysfunction 280872062 Active 2024 Not Available [facility] 11:22:21 Somatic dysfunction of sacral spine 077808823 Active 2024 Not Available [facility] 5 11:22:21 Problem Notes None recorded. Procedures Surgical History Date Name Laterality Status Provider Name and Address Organization Details Recorded Time 5 26264: Spinal manipulation , 3 to 4 regions completed Brian Ryan DC [address], [place], [address], [facility] 10/15/2024 16:51:31 5 39584: Spinal manipulation , 3 to 4 regions completed Brian Ryan DC [address], [place], [address], [facility] 10/08/2024 15:53:23 5 45248: Spinal manipulation , 3 to 4 regions completed Brian Ryan DC [address], [place], [address], [facility] 10/01/2024 15:43:19 Imaging Results None recorded. Procedure Notes None recorded. Medical Equipment None Reported. Medications Name Sig Start Date Stop Date Status Note LastModified by Organization Details LastModified Time cephalexin 250 mg capsule active Not Available Not Available Not Available sertraline 100 mg tablet active Not Available Not Available Not Available amlodipine 5 mg tablet active Not Available Not Available Not Available sulfamethoxazole 800 mg-trimethoprim 160 mg tablet active Not Available Not Availabl e Not Available tramadol 50 mg tablet active Not Available Not Available Not Available amoxicillin 875 mg tablet active Not Available Not Available Not Available estradiol 0.01% (0.1 mg/gram) vaginal cream active Not Available Not Availabl e Not Available pregabalin 25 mg capsule active Not Available Not Available Not Available GaviLyte-G 236 gram-22.74 gram-6.74 gram-5.86 gram oral solution active Not Available Not Availabl e Not Available Vitals None Recorded Social History None recorded. Functional Status None recorded. Mental Status None recorded. Family History Nothing Reported. Medical History No medical history recorded. Gynecological HistoryNo gynecological history recorded. Obstetrics History GPAL:G 0 P 0 0 0 0 Past Encounters Encounter ID Performer Location Encounter Start Date Encounter Closed Date Diagnosis/Indication Diagnosis SNOMED-CT Code Diagnosis ICD10 Code Diagnosis Note [id number] Brian Ryan DC [facility] [address] [place] [address] 10/01/2024 15:22:35 10/01/2024 16:02:22 Lumbar segmental dysfunction 587816529 M99.03 Low back pain 259196585 M54.50 Somatic dy sfunction of sacral spine 031742669 M99.04 Thoracic s egmental dysfunction 921402983 M99.02 [id number] Brian Ryan DC [address] [place] [address] 10/08/2024 14:40:58 10/08/2024 16:10:10 Low back pain 142043156 M54.50 Thoracic s egmental dysfunction 150916257 M99.02 Somatic dy sfunction of pelvic region 397517164 M99.05 Somatic dy sfunction of sacral spine 054479194 M99.04 [id number] Brian Ryan DC [address] [facility] [place] [address] 10/15/2024 15:22:15 10/15/2024 17:15:06 Lumbar segmental dysfunction 453433307 M99.03 Low back pain 219338344 M54.50 Somatic dy sfunction of sacral spine 992392770 M99.04 Somatic dy sfunction of pelvic region 408892697 M99.05 Health Concerns Section Related Observation LastModified by Organization Detai ls LastModified Time None Recorded Concern Status LastModified by Organization Details LastModified Time None Recorded Payers Encounter Date Sequence Insurance Name Policy Number Policy Conley Covered Member ID Conley Member ID Guarantor Name 10/15/2024 1 [employer] (MEDICARE [place]PLACEMENT PPO) [id number] Harleen Gibson [id number] Harleen Gibson Notes Date Note Type Note Provider Name and Address Organization Details Recorded Time 10/15/2024 text/html HPI - Lumbar SpineReported bypatient.Location: left; With radiation to knee Quality:aching Severity:not changing Timing:morning Aggravating Factors:standing Alleviating Factors:ice Brian Ryan DC [address] [place] [address], [place], [address], [facility] 10/15/2024 16:52:17 OBGyn Episode No OBEpisode recorded.
--- OUTSIDE RECORDS SUMMARY | 2024-11-04 19:32 | XMS_ITS | Clinical Summary ---
Author Organization [facility] Address [address] [place] [address] Care Team Providers Care Animal Taxonomist Name Role Phone Chirag Paz MD Primary Care Provider Allergies Active Allergy Reactions Criticality Noted Date Comments Animal Dander Itching High 09/09/2008 Gabapentin Dizziness Low 02/24/2021 Morphine Itching Medium 02/24/2021 Oxycodone Other (See Comments) High 02/24/2021 Other reaction(s): Mental Status Change Shellfish Allergy Nausea and Vomiting High 1 Scallops /stomach upset Medications cholecalciferol, vitamin D3, 1,000 unit tablet [CHOLECALCIFEROL , VITAMIN D3, 1,000 UNIT TABLET] Take 1,000 Units by mouth daily. 4 Active cyanocobalamin (VITAMIN B-12) 1000 MCG tablet [CYANOCOBALAMIN (VITAMIN B-12) 1000 MCG TABLET] Take 1,000 mcg by mouth daily. 4 Active sertraline (ZOLOFT) 100 MG tablet Take 100 mg by mouth daily Active amLODIPine (NORVASC) 5 MG tablet Take 5 mg by mouth daily Active labetalol (NORMODYNE) 100 MG tablet Take 100 mg by mouth every evening Takes at 5 PM Active ibuprofen (ADVIL/MOTRIN) 200 MG tablet Take 400 mg by mouth every 8 hours as needed 2 Active omeprazole (PRILOSEC) [address] capsule Take 20 mg by mouth daily as needed 1 Active acetaminophen (TYLENOL) 500 MG tabletIndication s:Spinal stenosis, lumbar region, without neurogenic claudication Take 2 tablets (1,000 mg) by mouth 3 times daily 2 Active SENNA-docusate sodium (SENNA S) 8.6-50 MG tabletIndication s:Drug-induced constipation Take 1 tablet by mouth 2 times daily 2 Active polyethylene glycol (MIRALAX) 17 GM/Dose powderIndication s:Drug-induced constipation Take 17 g by mouth daily as needed for constipation 510 g 2 Active hydrOXYzine (ATARAX) 10 MG tabletIndication s:Fusion of lumbar spine Take 1 tablet (10 mg) by mouth 3 times daily 60 tablet 3 2 Active methocarbamol (ROBAXIN) 500 MG tabletIndication s:Fusion of lumbar spine Take 1 tablet (500 mg) by mouth 3 times daily 60 tablet 3 2 Active gabapentin (NEURONTIN) 100 MG capsuleIndicatio ns:Spinal stenosis, lumbar region, without neurogenic claudication Take 1 capsule (100 mg) by mouth 3 times daily And 200mg qhs 30 capsule 2 Active HYDROmorphone (DILAUDID) 2 MG tabletIndication s:Fusion of lumbar spine Take 1 tablet (2 mg) by mouth every 3 hours 6 tablet 2 Active Active Problems Problem Noted Date Diagnosed Date AVM (arteriovenous malformation) brain 2 GERD (gastroesophageal reflux disease) 2 History of adenomatous polyp of colon 07/12/2022 History of migraine headaches 07/12/2022 Lumbar degenerative disc disease 07/12/2022 Nicotine dependence 07/12/2022 Osteopenia 07/12/2022 Reflux 07/12/2022 Smoking hx 07/12/2022 Status post cervical spinal arthrodesis 07/12/20 22 Obesity 07/12/2022 Adenomatous polyp 06/18/2022 Overview (06/18/2022): 02-20-13 Second screening no polyps. 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 Hypoxia 06/18/2022 Cervical myelopathy 06/14/2022 Peripheral vascular disease 06/14/2022 Fusion of spine, site unspecified 06/07/2022 Osteoporosis 01/05/2022 Low back pain 01/01/2022 Leg pain, right 11/24/2021 Generalized weakness 11/17/2019 History of hepatitis 07/26/2018 Depression with anxiety 02/11/2018 Ataxic gait 02/11/2018 Hyperlipidemia 02/11/2018 Complicated grief 01/08/2018 Anxiety 08/07/2017 Chronic constipation 08/07/2017 Sleep disturbance 08/07/2017 Chronic ethmoidal sinusitis 10/09/2010 Overview (06/18/2022): Dr. Cerda's plan on 11/20/2010: Chronic ethmoid and frontal sinusitis, now status post frontal sinusotomy and partial ethmoidectomy and placement of stratus catheter with an excellent result. I have recommended that she begin Flonase and follow up with me in 2 months' time. Notify me for any decline in her condition in the meantime. Major depressive disorder, recurrent episode, mi ld 08/21/2007 Diarrhea Overview (03/07/2021): Created by Conversion Overweight Overview (03/07/2021): Created by Conversion Rheumatoid arthritis Overview (03/07/2021): Created by Conversion Carpal Tunnel Syndrome Overview (03/07/2021): Created by Conversion Fatigue Overview (03/07/2021): Created by Conversion Peripheral Neuropathy Overview (03/24/2021): Created by Conversion Replacement Utility updated for latest IMO load Abnormal Glucose Overview (03/07/2021): Created by Conversion Myalgia And Myositis Overview (03/07/2021): Created by Conversion Immunizations Name Administration Dates [...] School Help Needed Not on file 06/29 Comments No Sex and Gender Information Value Date Recorded Sex Assigned at Not on file Legal Sex Female 3:35 AM [employer] Gender Identity Not on file Sexual Orientation Not on file Last Filed Vital Signs Vital Sign Reading Time Taken Comments Blood Pressure 156/92 07/24/2022 7:05 AM CDT Pulse 70 07/24/2022 7:05 AM CDT Temperature 36.8 C (98.2 F) 07/24/2022 7:05 AM CDT Respiratory Rate 16 07/24/2022 7:05 AM CDT [...] C SCREENING 1968 LUNG CANCER SCREENING 2000 Pneumococcal Vaccine: 50+ Years (1 of 1 - PCV) 2000 ZOSTER IMMUNIZATION (1 of 2) 2000 LIPID 01/05/2014 01/05/2013 MAMMO SCREENING 01/06/2015 01/06/2013 FALL RISK ASSESSMENT 2015 MEDICARE ANNUAL WELLNESS VISIT 2015 COLONOSCOPY 02/20/2023 02/20/2013 COLORECTAL CANCER SCREENING 02/20/2023 BMP 06/09/2023 06/09/2022, 06/08/2022 COVID-19 Vaccine ( season) 2024 01/24/2022, 08/15/2021, 12/27/2020, Additional history exists INFLUENZA VACCINE (#1) 2024 , 06/24/2021, 10/10/2010, Additional history exists RSV VACCINE (1 - 1-dose 75+ series) 2025 GLUCOSE 06/09/2025 06/09/2022, 05/24, 05/24/2022 DTAP/TDAP/TD IMMUNIZATION [...] this topic Medical Devices Implanted Type Area Food Preparer Device Identifier Shelf Expiration Date Model / Serial / Lot Screw Bn 55mm 7.5mm St Cls 2 Thrd 127mm Ns Pathloc-L Spne Lf - [id number] Implanted:Qty : 2 on 06/07/2022 by Samia Heredia MD at [facility] Metallic Hardware/Anc hor N/A: Spine Lumbar AEGIS SPINE 03/19/20271012-4025 S / / [id number] Screw Bn 50mm 7.5mm St Cls 2 Thrd 127mm Ns Pathloc-L Spne Lf - [id number] Implanted:Qty : 4 on 06/07/2022 by Samia Heredia MD at [facility] Metallic Hardware/Anc hor N/A: Spine Lumbar AEGIS SPINE 03/19/20273472-6750 S / / [id number] Screw Bn 55mm 7.5mm St Cls 2 Thrd 127mm Ns Pathloc-L Spne Lf - [id number] Implanted:Qty : 2 on 06/07/2022 by Samia Heredia MD at [facility] Metallic Hardware/Anc hor N/A: Spine Lumbar AEGIS SPINE 03/19/2027 [id number] S / / [id number] Screw Bn 45mm 7.5mm St Cls 2 Thrd 127mm Ns Pathloc-L Spne Lf - [id number] Implanted:Qty : 1 on 06/07/2022 by Samia Heredia MD at [facility] Metallic Hardware/Anc hor N/A: Spine Lumbar AEGIS SPINE 05/04/2024 8480-2644 S / / [id number] Screw Bn 45mm 7.5mm [address] Cls 2 Thrd 127mm Ns Pathloc-L Spne Lf - [id number] Implanted:Qty : 1 on 06/07/2022 by Samia Heredia MD at [facility] Metallic Hardware/Anc hor N/A: Spine Lumbar AEGIS SPINE 06/16/20255980-1276 S / / [id number] 10 Cc Malhotra-Tcp Sponge 25mm X 100 Mm Implanted:Qty : 1 on 06/07/2022 by Samia Heredia MD at [facility] N/A: Back 02/20/2027 / [id number] / [id number] 110mm Won Implanted:Qty : 1 on 06/07/2022 by Samia Heredia MD at [facility] N/A: Back 5668-6839 0 / [id number] 10 Cc Malhotra-Tcp Sponge 25mm X 100 Mm Implanted:Qty : 1 on 06/07/2022 by Samia Heredia MD at [facility] N/A: Back 02/20/2027 / [id number] / [id number] Set Screw- Star, Open Type 9.7, 5.6mm Implanted:Qty : 10 on 06/07/2022 by Samia Heredia MD at [facility] N/A: Back 02/22/2025 [id number] S / / [id number] 10cc Malhotra-Tcp Sponge 25mm X 100mm Implanted:Qty : 1 on 06/07/2022 by Samia Heredia MD at [facility] N/A: Spine Lumbar 02/20/2027 AMWS-TCP- 10 / [id number] / [id number] Ollif Arrow Cage 27x11 Implanted:Qty : 1 on 06/07/2022 by Samia Heredia MD at [facility] N/A: Back [id number] 8005 14 [id number] Ollif Arrow Cage 27x13 Implanted:Qty : 1 on 06/07/2022 by Samia Heredia MD at [facility] N/A: Back 34764 8005 14 [id number] Ollif Arrow Cage 30x13 Implanted:Qty : 1 on 06/07/2022 by Samia Heredia MD at [facility] N/A: Back 3125 14 Ollif Arrow Cage 30x14 Implanted:Qty : 1 on 06/07/2022 by Samia Heredia MD at [facility] N/A: Back [id number] 14 120mm Straight Notched Won Implanted:Qty : 1 on 06/07/2022 by Samia Heredia MD at [facility] N/A: Back 1368-5110 0S / / [id number] Procedures Procedure Name Priority Date/Time Associated Diagnosis [...] - 107 mmol/L 06/09/2022 7:50 AM CDT LABORATORY Carbon Dioxide (CO2) 27 22 - [...] and gender (Mckenna et al., NEJM, DOI: 10.1056/EUZPgr6836065) Blood STRUCTURE OF RIGHT UPPER LIMB / Unknown Venipuncture / Unknown 06/09/2022 7:08 AM CDT 06/09/2022 7:16 AM CDT Chintan Avalos DO LAB - BLOOD ORDERABLES Fi nal Result LABORATORY [facility] [address] Lab (1st floor, no room number) [place] [address], [facility] [phone] * COLONOSCOPY (02/20/2013 12:00 AM CDT) 02/20/2013 us Historical Provider PROCEDURES Final Result * MA Screening Bilateral (01/06/2013 12:00 AM [...] ACR CATEGORY: 1 NEGATIVE CONFIDENTIAL MEDICAL REPORT [address] [address] Name: CRISTINA GIBSON Account: [id number] IMRN: [id number] Number:[id number] Date of :1950 Location: [facility] Age: 62 Sex: FInterpreted by: PHILLIP MARLEY MD Ordered By:STEWART MONTERO [facility] Phy: STEWART MONTERO Date of Service:01/06/13 Exam: REASON FOR EXAM: MG SCREENING MAMMOGRAM BILAT SCREENING MAMMOGRAM RADIOLOGY REPORT This report is preliminary unless an electronic signature appears below. Electronically Signed By: PHILLIP MARLEY T: 01/06/2013 13:31Tech: [id number] Procedure Note Provider, Historical - 04/13/2021 FULL FIELD DIGITAL SCREENING MAMMOGRAM INDICATION: Screening. COMPARISON: 09/09/2008. FINDINGS: Breast tissue is heterogeneously dense which may compromisemammography. No radiographic evidence of malignancy. No significant changefrom previous mammogram. CAD analysis was performed and used in the interpretation of this exam. ACR CATEGORY: 1 NEGATIVE CONFIDENTIAL MEDICAL REPORT [address] [address] Name: CRISTINA GIBSON Account: [id number] IMRN: [id number] Number:[id number] Date of :1950 Location: [facility] Age: 62 Sex: FInterpreted by: PHILLIP MARLEY MD Ordered By:STEWART MONTERO [facility] Phy: STEWART MONTERO Date of Service:01/06/13 Exam: REASON FOR EXAM: MG SCREENING MAMMOGRAM BILAT SCREENING MAMMOGRAM RADIOLOGY REPORT This report is preliminary unless an electronic signature appears below. Electronically Signed By: PHILLIP MARLEY T: 01/06/2013 13:31Tech: [id number] us Historical Provider IMG MAMMOGRAPHY ORDERABLES F inal Result * (ABNORMAL) Lipid Profile (01/05/2013 10:41 AM CDT) LDL Cholesterol Calculated 134.6(H) <130.1 mg/dL 01/05/2013 10:41 AM CDT [facility] Cholesterol 233(H) <200 mg/dL 01/05/2013 10:41 AM CDT [facility] Direct Measure HDL 45 >39 mg/dL 01/05/2013 10:41 AM CDT [facility] Triglycerides 267(H) <151 mg/dL 01/05/2013 10:41 AM CDT [facility] 01/05/2013 10:4 1 AM CDT 01/05/2013 10:41 AM CDT Stewart Montero MD LAB - BLOOD ORDERABLES Final Result [facility] [address] [place] [address], [place] [facility] [address] [place] [address] from Last 3 Months or Most Recently Relevant to Health Maintenance Insurance [employer] [facility] [place] [employer] MEDIC[employer] Advance Directives For more information, please contact: [phone] * Full Code (Latest Code Status on File) Date Activated Date Inactivated Comments 06/07/2022 3:21 PM 06/11/2022 3:15 PM All basic an d advanced life-sustaining interventions are performed as appropriate Question Answer Comments Code status determined by: Discussion with nallely nt/ legal decision maker Care Teams Animal Taxonomist Relationship Specialty Start Date End Date Chirag Paz MD [facility] [address] [place] [address] PCP - General Emergency Medicine 06/07/22
--- OUTSIDE RECORDS SUMMARY | 2024-11-04 19:32 | XMS_ITS | Continuity of Care Document ---
Author Organization [facility] Address [address] [place] [address] Assessment Encounter Date Assessment Date Assessment LastModified by Organization Details LastModified Time 10/01/2024 10/01/2024 ASSESSMENT: Patient is a good candidate for conservative care and the prognosis is for a favorable outcome that achieves the patients' goals. We discussed etiology, activity modifications, home care, and other treatment options. Initially, it is recommended that the patient receive in-office treatment 1 times per week for 8 weeks at which time a re-evaluation will be performed to determine an appropriate change in plan. Initially, treatment will focus on joint manipulation to restore range of motion and reduce pain. We will slowly progress to therapeutic exercises and activities to improve function, strength, and stability may also be used as warranted. If the patient is not responding as expected, more invasive procedures will be discussed along with a referral. All considerations above were discussed with the patient and questions answered to satisfaction. If the patient should have any additional questions, or should the condition evolve or worsen, the patient should not hesitate to contact our office. juan jose Not available 10/01/2024 15:42:49 Plan of Treatment Reminders Order Date Submit [...] Recorded Time Somatic dysfunction of pelvic region 307842458 Active 2024 Brian Ryan, NAVARRO [address], [place], [address] , [facility]ly [facility] 5 15:54:35 Thoracic segmental dysfunction 879468021 Active 2024 Brian Ryan DC [address], [place], [address] , [facility]ly [facility] 5 15:42:49 Low back pain 531420337 Active 2024 Brian Ryan DC [address], [place], [address] , [facility] 5 15:42:49 Lumbar segmental dysfunction 248101206 Active 2024 Not Available [facility] 11:22:21 Somatic dysfunction of sacral spine 005618173 Active 2024 Not Available [facility] 11:22:21 Problem Notes None recorded. Procedures Surgical History Date Name Laterality Status Provider Name and Address Organization Details Recorded Time 5 01677: Spinal manipulation , 3 to 4 regions completed Brian Ryan DC [address], [place], [address], [facility]ly [facility] 10/15/2024 16:51:31 5 50753: Spinal manipulation , 3 to 4 regions completed Brian Ryan DC [address] [place] [address], [place], [address], [facility] 10/08/2024 15:53:23 5 [address]5935: Spinal manipulation , 3 to 4 regions completed Brian Ryan DC [address] [place] [address], [place], [address], [facility] 10/01/2024 15:43:19 Imaging Results None recorded. [...] SNOMED-CT Code Diagnosis ICD10 Code Diagnosis Note [id number] Brian Ryan DC [facility] [address] [place] [address] 10/01/2024 15:22:35 10/01/2024 16:02:22 Lumbar segmental dysfunction 614754333 M99.03 Low back pain 258942100 M54.50 Somatic dy sfunction of sacral spine 482290903 M99.04 Thoracic s egmental dysfunction 738991297 M99.02 Health Concerns Section Related Observation LastModified by Organization Detai ls LastModified Time None Recorded Concern Status LastModified by Organization Details LastModified Time None Recorded Payers Encounter Date Sequence Insurance Name Policy Number Policy Conley Covered Member ID Conley Member ID Guarantor Name 10/01/2024 1 [place] (MEDICARE [place]PLACEMENT PPO) [id number] Harleen Gibson [id number] Harleen Gibson Notes Date Note Type Note Provider Name and Address Organization Details Recorded Time 10/01/2024 text/html HPI - Lumbar SpineReported bypatient.Location: left; With radiation to knee Quality:aching Severity:not changing Timing:morning Aggravating Factors:standing Alleviating Factors:ice Brian Ryan DC [address], [place], [address], [place] [facility] 10/01/2024 15:43:39 OBGyn Episode No OBEpisode recorded.
--- OUTSIDE RECORDS SUMMARY | 2024-11-04 19:32 | XMS_ITS | Clinical Summary ---
Author Organization [employer] [facility] Address [place], [place] [address] Care Team Providers Care Adult Neuropsychologist Name Role Phone José Miguel Hall MD [facility] Unavailable Chirag Paz MD Primary Care Provider Allergies Active Allergy Reactions Criticality Noted Date Comments Cats (Fur, Dander, Saliva) Itching High 09/09/2008 Gabapentin Dizziness Low 02/24/2021 Morphine Itching Medium 02/24/2021 Oxycodone Hallucinations,Menta l Status Change High 02/24/2021 Shellfish Containing Products Nausea And Vomiting High 10/16/2010 Scallops /stomach upset Medications multivitamins-ca onquc-svon-sablx als (MULTIPLE VITAMIN, WOMENS) Tab tablet Take 1 tablet by mouth once daily. 50+ 0 0 Active cholecalciferol (VITAMIN D3) 1,000 unit tablet Take 1,000 Units by mouth once daily. Active labetaloL (TRANDATE) 100 mg tabletIndication s:Nontraumatic hemorrhage of cerebral hemisphere, unspecified laterality (HC) Take 1 tablet by mouth 3 times daily. 90 tablet 0 Active amLODIPine (NORVASC) 5 mg tabletIndication s:Nontraumatic hemorrhage of cerebral hemisphere, unspecified laterality (HC),Hypertensio n Take 1 tablet by mouth once daily. 30 tablet 0 Active omeprazole (PRILOSEC) 20 mg Delayed-Release capsule Take 1 Capsule (20 mg) by mouth once daily before a meal. 0 1 Active cyanocobalamin (Vitamin B-12) 50 mcg tablet Take by mouth once daily. 0 1 Active ibuprofen (ADVIL; MOTRIN) 200 mg tablet 400 mg. As directed 0 2 Active sertraline (ZOLOFT) 100 mg tabletIndication s:HEATHER (generalized anxiety disorder),Recurr ent major depressive disorder, in partial remission (HC) Take 1 Tablet (100 mg) by mouth once daily. 90 Tablet 3 3 Active Active Problems Problem Noted Date Diagnosed Date Generalized weakness 11/17/2019 ICH (intracerebral hemorrhage) 11/11/2019 Complicated grief 01/08/2018 Cervical myelopathy 08/02/2017 Cervical spinal stenosis 08/01/2017 Family history of colon cancer 02/20/2013 Overview (02/20/2013): Father colon cancer age 50s Chronic ethmoidal sinusitis 10/09/2010 Overview (11/20/2010): Dr. Cerda's plan on 11/20/2010: Chronic ethmoid [...] episode, mi ld 08/21/2007 Smoking hx Post-menopausal Overview (11/05/2009): age 49 Reflux Hyperlipidemia Adenomatous polyp Overview (02/20/2013): 02-20-13 Second screening no polyps. 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 Health Maintenance Overview (11/05/2009): Cholesterol Screening -12/14/04 Pap and Pelvic -01/26/05 Mammogram - 12/14/04 Dexa - 07/01/03 Colonoscopy -08/03/05 f/u in 5 yrs Eye Exam - none in chart Hypertension S/P craniotomy Hypoxia Resolved Problems Problem Noted Date Diagnosed Date Resolved Date Chronic ethmoidal sinusitis 10/09/2010 11/20/2010 Dysthymic disorder 07/09/2007 Anxiety associated with depression 11/14/2009 Encounters Date Type Department Care Team Description 10/23/2024 12:30 PM PROFESSOR OF KINESIOLOGY Procedure Only [facility] [address] [facility] [place] [address] Radha Potts L Ac Acupuncture 10/23/2024 Travel 09/29/2024 1:00 PM PROFESSOR OF KINESIOLOGY Procedure Only [facility] [address] [place] [address] Radha Potts L Ac Acupuncture 09/29/2024 Travel 09/25/2024 1:00 PM PROFESSOR OF KINESIOLOGY Procedure Only [facility] [address] [place] [address] Radha Potts L Ac Acupuncture 09/25/2024 Travel 09/08/2024 1:00 PM PROFESSOR OF KINESIOLOGY Procedure Only [facility] [address] [place] [address] Radha Potts L Ac Acupuncture 09/08/2024 Travel 08/31/2024 10:30 AM PROFESSOR OF KINESIOLOGY Procedure Only [facility] [address] [place] [address] Radha Potts, Zulema Ac Acupuncture 08/31/2024 Travel 08/25/2024 8:30 AM PROFESSOR OF KINESIOLOGY Procedure Only [facility] [address] [place] [address] Radha Potts L Ac Acupuncture 08/25/2024 Travel 08/18/2024 11:00 AM PROFESSOR OF KINESIOLOGY Procedure Only [facility] [address] [place] [address] Radha Potts L Ac Acupuncture 08/18/2024 Travel from Last 3 Months Immunizations Name [...] 2 05/07/2023 Social Connections Answer Date Recorded Do you often feel lonely or isolated from those around you? 0 09/25/2024 Financial Resource Strain Answer Date R ecorded Difficulty of Paying Living Expenses 3 09/25/2024 Difficulty of Paying Living Expenses Not on file 09/25/2024 Food Insecurity Answer Date Recorded Do you worry your food will run out before you are able to buy more? 1 09/25/2024 Transportation Needs Answer Date Record ed Does lack of transportation keep you from medica l appointments? 1 09/25/2024 Does lack of transportation keep you from work, meetings or getting things that you need? 1 09/25/2024 Housing Stability Answer Date Recorded What is your housing situation today? 1 09/25/2024 Utilities Answer Date Recorded Do you have trouble paying f or utilities (for example, heat, electricity, water, phone)? 1 09/25/2024 Comments No Sex and Gender Information Value Date Recorded Sex Assigned at Not on file Legal Sex Female 5:54 AM PROFESSOR OF KINESIOLOGY Gender Identity Not on file Sexual Orientation Not on file Obstetrics History Last Filed Vital Signs Vital Sign Reading Time Taken Comments Blood Pressure 114/78 05/07/2023 10:51 AM CDT Pulse 84 05/07/2023 10:51 AM CDT Temperature 36.8 C (98.2 F) 02/24/2021 9:22 AM CDT Respiratory Rate 20 02/24/2021 2:00 PM CDT Oxygen Saturation 95% 02/24/2021 2:00 PM CDT Inhaled Oxygen Concentration - - Weight 86.5 kg (190 lb 9.6 oz) 05/07/2023 10:51 AM CDT Height 154.9 cm (5' 1) 02/24/2021 9:22 AM CDT Body Mass Index 36.01 02/24/2021 9:22 AM CDT Plan of Treatment Upcoming Encounters Date Type Department Care Team (Late st Contact Info) Description 11/12/2024 11:00 AM PROFESSOR OF KINESIOLOGY Procedure Only [facility] [address] [place] [address] Radha Potts L [address] [place], [place] [id number] Health Maintenance Due Date Last Done Comments Hepatitis C screening for ag e 18-79 1968 Pneumococcal series for age 50+ (1 of 1 - PCV) 2000 Zoster (shingles) series for age 50+ (1 of 2) 2000 Mammogram for age 45-75 09/09/2009 09/09/2008 DEXA/DXA scan for age 65+ 2015 Medicare Wellness for age 65+ 2015 BMI (ht and wt on same day) for age 18+ 06/19/2018 06/19/2017 Colonoscopy through age 75 02/20/202302/20, 02/20/2013, 02/20/2013, Additional history exists Depression screening for age 12+ 05/07/2024 05/07/2023, 10/30/2022, 04/26/2022, Additional history exists COVID-19 vaccine series ( season) 2024 01/24/2022, 08/15/2021, 12/27/2020, Additional history exists Influenza for age 65+ 05/24/2024 07/04/2021 , 06/24/2021, 10/10/2010, Additional history exists Lipids for age 45-75 11/11/2024 11/11/2019, 12/14/2004 (Completed outside of [facility]) RSV vaccine for adults or (1 - 1-dose 75+ series) 2025 Tetanus booster 05/10/2025 05/10/2015, 12/2007 (Completed outside of [facility]), 08/26/2008 Tdap Completed 05/10/2015, 08/26/2008 Medical Devices Implanted Type Area Client Application Support Specialist Device Identifier Shelf Expiration Date Model / Serial / Lot Spacer Stratus Frontal Microflow - [id number] Implanted:Qty: 1 on 10/17/2010 at [facility] Right: Nose ACCLARENT 07/24/2012 [id number] # / / [id number] Screw Facial 2x10mm Matrixmandible Coarse Slf Tppng - [id number] Implanted:Qty: 2 on 08/01/2017 by Freddy Mayes MD at [facility] J And J Depuy CMF [id number]# / / Plate Facial 2mm 30hole Synthes Adaption - [id number] Implanted:Qty: 1 on 08/01/2017 by Freddy Mayes MD at [facility] J [employer] J Dep[employer] CMF [id number]# / / Screw Facial 2x8mm Matrixmandible Coarse Slf Tppng Implanted:Qty: 7 on 08/01/2017 by Freddy Mayes MD at [facility] [id number] / / Description:SCREW FACIAL 2X8 MM MATRIXMANDIBLE COARSE SLF TPPNG Dura Neuro 1x1in Duragen Plus Non-Sut - [id number] Implanted:Qty: 1 on 11/16/2019 by Franco Porter MD at [facility] Right: Cranium Integra Mind-NRGciTurnip Truck II Bob 09/22/2022 [id number]# / / [id number] Screw Neuro 4mm Matrixneuro Slf Drill Titnm - [id number] Implanted:Qty: 7 on 11/16/2019 by Franco Porter MD at [facility] Right: Cranium J And J Depuy CMF [id number] 4.01# / / Plate Facial [id number] 4hole Synthes Box - [id number] Implanted:Qty: 2 on 11/16/2019 by Franco Porter MD at [facility] Right: Cranium J And J Depuy F [id number]# / / Procedures Procedure Name Priority Date/Time Associated Diagnosis Comments ACUPUNCTURE PLAN OF CARE Routine 10/23/2024 12:33 PM PROFESSOR OF KINESIOLOGY Other low back pain ACUPUNCTURE PLAN OF CARE Routine 10/01/2024 1:45 PM PROFESSOR OF KINESIOLOGY Other low back pain ACUPUNCTURE PLAN OF CARE Routine 10/01/2024 1:45 PM PROFESSOR OF KINESIOLOGY Other low back pain ACUPUNCTURE PLAN OF CARE Routine 10/01/2024 1:45 PM PROFESSOR OF KINESIOLOGY Other low back pain ACUPUNCTURE PLAN OF CARE Routine 10/01/2024 1:45 PM PROFESSOR OF KINESIOLOGY Other low back pain ACUPUNCTURE PLAN OF CARE Routine 10/01/2024 1:45 PM PROFESSOR OF KINESIOLOGY Other low back pain ACUPUNCTURE PLAN OF CARE Routine 10/01/2024 1:45 PM PROFESSOR OF KINESIOLOGY Other low back pain ACUPUNCTURE PLAN OF CARE Routine 09/29/2024 1:25 PM PROFESSOR OF KINESIOLOGY Other low back pain ACUPUNCTURE PLAN OF CARE Routine 09/08/2024 12:34 PM PROFESSOR OF KINESIOLOGY Other low back pain ACUPUNCTURE PLAN OF CARE Routine 08/31/2024 10:06 AM PROFESSOR OF KINESIOLOGY Other low back pain ACUPUNCTURE PLAN OF CARE Routine 08/25/2024 8:47 AM PROFESSOR OF KINESIOLOGY Other low back pain ACUPUNCTURE PLAN OF CARE Routine 08/18/2024 10:56 AM PROFESSOR OF KINESIOLOGY Other low back pain LIPID PANEL Today 11/11/2019 3:02 AM PROFESSOR OF KINESIOLOGY SCAN-COLONOSCOPY 02/20/2013 12:0 0 AM CDT XR MAMMO BILAT DIAG FFDM (IA) Routine 09/09/2008 7:40 AM PROFESSOR OF KINESIOLOGY Breast Pain Breast Lump from Last 3 Months or Most Recently Relevant to Health Maintenance Results * (ABNORMAL) Lipid Panel (11/11/2019 3:02 AM PROFESSOR OF KINESIOLOGY) Pathologist [facility] CHOLESTEROL,TOTAL 203(H) 100 - 199 mg/dL 11/11/2019 3:33 AM PROFESSOR OF KINESIOLOGY [facility] TRIGLYCERIDES 184(H) <150 mg/dL 11/11/2019 3:33 AM PROFESSOR OF KINESIOLOGY [facility] HDL CHOLESTEROL 43 >40 mg/dL 0 3:33 AM PROFESSOR OF KINESIOLOGY [facility] NON-HDL CHOLESTEROL 160(H) <145 mg/dl 11/11/2019 3:33 AM PROFESSOR OF KINESIOLOGY [facility] CHOL/HDL RATIO 4.72(H) <4.50 11/11/2019 3:33 AM PROFESSOR OF KINESIOLOGY [facility] LDL CHOLESTEROL 123 <=130 mg/dL 11/11/2019 3:33 AM PROFESSOR OF KINESIOLOGY [facility] PROVIDER ORDERED STATUS RANDOM 11/11/2019 3:33 AM PROFESSOR OF KINESIOLOGY [facility] Blood BLOOD SPECIMEN / Unknown Venipuncture / Unknown 11/11/2019 3:02 AM PROFESSOR OF KINESIOLOGY 11/11/2019 3:08 AM PROFESSOR OF KINESIOLOGY us Radha Saba MD CHEMISTRY Final R esult [facility] [address] [place] [address], [place] * SCAN-COLONOSCOPY (02/20/2013 12:00 AM CDT) Narrative 02/20/2013 12:00 AM CDT Procedure Note Scanner - 02/20/2013 12:00 AM CDT us Scanner OTHER Final Result * XR MAMMO BILAT DIAG FFDM (09/09/2008 7:40 AM PROFESSOR OF KINESIOLOGY) MAMMOGRAM ACR 2 Benign Finding Anatomical Region Laterality Modality BREASTS, Breast Left, Breast Right Bilateral Mammography 09/09/2008 7:40 AM PROFESSOR OF KINESIOLOGY Narrative 09/09/2008 10:13 AM PROFESSOR OF KINESIOLOGY BILATERAL FULL-FIELD DIAGNOSTIC DIGITAL MAMMOGRAPHY WITH COMPUTER-AIDED DETECTION RIGHT BREAST ULTRASOUND INDICATION: Right breast pain. COMPARISON: None. TECHNIQUE: Bilateral full-field diagnostic digital mammography with computer-aided detection and ultrasound. REPORT: MAMMOGRAM: The breast tissue is heterogeneously dense, which may lower the sensitivity of mammography. No evidence of malignancy in either breast. Images were checked with CAD for a second read. ULTRASOUND: Targeted right breast ultrasound was then performed, targeted to the area of pain in the right breast. In the lower outer quadrant of the right breast, dilated subareolar ducts are identified with no suspicious masses. Results given to the patient. She will meet for surgical consultation today. ACR 2 Benign Finding Procedure Note Zuleika [...] 2 Benign Finding Inés Voss MD MAMMO Final Result from Last 3 Months or Most Recently Relevant to Health Maintenance Insurance * Guarantor: Harleen Gibson Account Type Relation to Patient Date of Phone Billing Address Personal/Family Self 1950 [address] [place] [address] [place] PB ONLY [place] HB ONLY MEDICARE PART B HB ONLY MEDICARE PART A HB ONLY [facility] ATTN: [place] [address] Advance Directives * Full Code (Latest Code Status on File) Date Activated Date Inactivated Comments 11/11/2019 2:00 AM 11/19/2019 4:22 PM * Full Code Date Activated Date Inactivated Comments 08/01/2017 5:10 PM 08/04/2017 3:31 PM * Full Code Date Activated Date Inactivated Comments 08/01/2017 5:44 AM 08/01/2017 3:54 PM Care Teams Adult Neuropsychologist Relationship Specialty Start Date End Date Chirag Paz MD [address] [place] [address] PCP - General Internal Medicine 07/04/17 José Miguel Hall MD Psychiatry 10/14/13
--- OUTSIDE RECORDS SUMMARY | 2024-11-04 19:32 | XMS_ITS | Encounter Summary ---
Author Organization [employer] Address [address] [place] [address] Care Team Providers Care Project Development Leader Name Role Phone Chirag Paz MD Primary Care Provider [phone]- [phone] Encounter Details Date Type Department Care Team (Late st Contact Info) Description 06/13/2022 Lab Requisition [facility] [address] [facility] [place], [place] [address] Jailene Lux, REAL PROPERTY EVALUATOR, IT RECRUITER [address] [place] [address] Anemia, unspecified; Essential (primary) hypertension Social History [...] on file Sexual Orientation Not on file Occupation Industry Job Start Date Job End Date Retired Not on file Not on file Not on file documented as of this [...] - 145 mmol/L 06/15/2022 1:15 PM CDT [facility] Potassium 4.8 3.5 - 5.1 mmol/L 06/15/2022 1:15 PM CDT [facility] Chloride 106 98 - 109 mmol/L 06/15/2022 1:15 PM CDT [facility] CO2 25 20 - 29 mmol/L 06/15/2022 1:15 PM CDT [facility] Anion Gap 10 7 - 16 mmol/L 06/15/2022 1:15 PM CDT [facility] Calcium 9.7 8.4 - 10.4 mg/dL 06/15/2022 1:15 PM CDT [facility] BUN 25 7 - 26 mg/dL 06/15/2022 1:15 PM CDT [facility] Creatinine 0.70 0.55 - 1.02 mg/dL 06/15/2022 1:15 PM CDT [facility] GFR, Estimated >60 >60 mL/min/1.7 3m2 06/15/2022 1:15 PM CDT [facility] Glucose 116(H) 70 - 100 mg/dL 06/15/2022 1:15 PM CDT [facility] Comment:The given reference range is for the fasting state. Non-fasting reference range for glucose is 70 - 180 mg/dL. Hours Fasting 0 06/15/2022 1:15 PM CDT [facility] Blood Venipuncture / Unknown 06/15/2022 7:20 AM CDT 06/15/2022 12:43 PM CDT us Jailene Lux APRN, IT RECRUITER LAB_1 Final Re sult [facility] [address] [place] [address], [facility] * Hemoglobin, Blood (06/15/2022 7:20 AM CDT) Hemoglobin 12.6 12.0 - 15.5 g/dL 06/15/2022 1:04 PM CDT [facility] Blood Venipuncture / Unknown 06/15/2022 7:20 AM CDT 06/15/2022 12:46 PM CDT us Jailene Lux REAL PROPERTY EVALUATOR, IT RECRUITER LAB_1 Final Re sult [facility] [address] documented in this encounter Visit Diagnoses Diagnosis Anemia, unspecified Essential (primary) hypertension (HRC) Unspecified essential hypertension documented in this encounter Care Teams Project Development Leader Relationship Specialty Start Date End Date Chirag Paz MD [address] [place] [address] PCP - General 08/01/17 documented as of this encounter
--- OUTSIDE RECORDS SUMMARY | 2024-11-04 19:32 | XMS_ITS | Data Portability ---
Author Organization [facility] - (IP) Address [address] [place] [address] Care Team Providers Care Maintainability Engineer Name Role Phone CAROLYN PIPER Primary Care [...] patient understands and agrees with this plan. [email or web address] Not available 12/01/2019 09:25:18 12/15/2019 12/15/2019 This [...] 17:08:09 02/28/2021 02/28/2021 ASSESSMENT 1. Presenting to [facility] on November 11, 2019, with spontaneous rupture [...] her primary care doctor, Dr. Piper in [place]. I have described to Harleen in detail [...] instructions recorded. Reason for Referral None Reported. Results Created Date Observation Date Name Description Value Unit Range Abnormal Flag Note LastModifiedBy Organization Detail LastModifiedTime 11/17/19 20 11/16/2019 imagi ng/di agnos tic resul t No observ ation record ed. [facility] [address], [place], [address], 11/17/2019 12:17:31 11/18/19 20 11/17/2019 CT, head, w/o contr ast No observ ation record ed. roland gao [facility] [address], [place], [address], 11/18/2019 11:03:43 12/15/19 20 12/15/2019 CT, brain , w/o contr ast No observ ation record ed. roland gao [facility] [address] [facility] [address], [place], [address], 12/15/2019 15:32:44 02/27/20 20 02/26/2020 imagi ng/di agnos tic resul t No observ ation record ed. [facility] [address], [place], [address], 02/29/2020 10:50:21 02/26/20 21 02/24/2021 sili ng/naz lieberman tic resul t No observ ation record ed. [email or web address] Not Available 03/2021 10:05:13 Result Notes None recorded. Procedures Surgical History None recorded. Imaging Results Imaging Date Name Status LastModified by Organiz ation Details LastModified Time 11/16/2019 [facility] [address] [place], [address], 11/17/2019 12:17:31 11/17/2019 CT, head, w/o contrast completed [facility] [address], [place], [address], 11/18/2019 11:03:43 12/15/2019 CT, brain, w/o contrast completed [facility] [address] [facility] [address], [place], [address], 12/15/2019 15:32:44 02/26/2020 imaging[facility] [address], [place], [address], 02/29/2020 10:50:21 02/24/2021 imaging/diagn ostic result completed [...] SNOMED-CT Code Diagnosis ICD10 Code Diagnosis Note 84575 Chris Goetz [facility] [address] [place] [address] 11/30/2019 13:42:04 11/30/2019 16:19:47 [address] Altagracia Severino [facility] [address] [place], [place] [address] [address] 12/15/2019 12:50:06 12/15/2019 13:05:38 [address] Altagracia Severino [facility] [address] [place], [place] [address] [address] 03/01/2020 11:17:59 03/01/2020 11:27:44 [address] Altagracia Severino [facility] [address] [place] [address] 02/28/2021 11:29:42 02/28/2021 12:44:52 Health Concerns Section Related Observation LastModified by Organization Detai ls LastModified Time None Recorded Concern Status LastModified by Organization Details LastModified Time None Recorded Advance Directives Directive None Recorded Payers Encounter Date Sequence Insurance Name Policy Number Policy Conley Covered Member ID Conley Member ID Guarantor Name 11/30/2019 1 [place] [id number] Harleen Gibson [id number] Harleen Gibson 12/15/2019 1 [place] [id number] Harleen Gibson [id number] Harleen Gibson 03/01/2020 1 [place] [id number] Harleen Gibson [id number] Harleen Gibson 02/28/2021 1 [place] [id number] Harleen Gibson [id number] Harleen Gibson Notes Date Note Type Note Provider Name and Address Organization Details Recorded Time 11/30/2019 text/html I had the pleasu re of seeing Harleen Gibson in [facility] [...] motor or sensory problems. SONIDO Monson - [facility] 12/01/2019 09:25:33 12/15/2019 text/html I had the pleasu re of seeing Harleen in Neurosurgery Clinic today. [...] has no further concerns. SONIDO Martínez - [facility] 12/16/2019 10:45:35 03/01/2020 text/html I had the pleasu re of seeing Harleen back in neurosurgery clinic [...] has no complaints today. SONIDO Martínez - [facility] 03/02/2020 17:08:41 02/28/2021 text/html Ms. Arthur little rns to Dr. Porter's clinic, having last been [...] they reviewed a formal angiogram done through [facility], which showed no residual parietal [...] No new sensorimotor issues. SONIDO Martínez - [facility] 03/02/2021 09:28:06 OBGyn Episode No OBEpisode recorded.
--- OUTSIDE RECORDS SUMMARY | 2024-11-04 19:32 | XMS_ITS | Encounter Summary ---
Author Organization [facility] Address [address] [place] [address] Care Team Providers Care Land Conservation Specialist Name Role Phone Chirag Paz MD Primary Care Provider [phone]- [phone] Encounter Details Date Type Department Care Team (Late st Contact Info) Description 07/06/2022 Lab Requisition [facility] [address] [facility] [place], [place] [id number] Jailene Lux, SHANK MAKER, SSN/SSBN ASSISTANT NAVIGATOR [address] [place] [address] Anemia, unspecified; Essential (primary) hypertension Social History [...] - 145 mmol/L 07/09/2022 2:43 PM CDT [facility] Potassium 4.1 3.5 - 5.1 mmol/L 07/09/2022 2:43 PM CDT [facility] Chloride 106 98 - 109 mmol/L 07/09/2022 2:43 PM CDT [facility] CO2 25 20 - 29 mmol/L 07/09/2022 2:43 PM CDT [facility] Anion Gap 10 7 - 16 mmol/L 07/09/2022 2:43 PM CDT [facility] Calcium 8.9 8.4 - 10.4 mg/dL 07/09/2022 2:43 PM CDT [facility] BUN 17 7 - 26 mg/dL 07/09/2022 2:43 PM CDT [facility] Creatinine 0.69 0.55 - 1.02 mg/dL 07/09/2022 2:43 PM CDT [facility] Glucose 96 70 - 100 mg/dL 07/09/2022 2:43 PM CDT [facility] Comment:The given reference range is for the fasting state. Non-fasting reference range for glucose is 70 - 180 mg/dL. Hours Fasting Unknown 07/09/2022 2:43 PM CDT [facility] GFR, Estimated >60 >60 mL/min/1.7 3m2 07/09/2022 2:43 PM CDT [facility] Blood Venipuncture / Unknown 07/09/2022 7:22 AM CDT 07/09/2022 1:30 PM CDT us Jailene Lux APRN, SSN/SSBN ASSISTANT NAVIGATOR LAB_1 Final Re sult [facility] [address] [place] [address], [facility] * Hemoglobin, Blood (07/09/2022 7:22 AM CDT) Hemoglobin 12.3 12.0 - 15.5 g/dL 07/09/2022 2:09 PM CDT [facility] Blood Venipuncture / Unknown 07/09/2022 7:22 AM CDT 07/09/2022 1:33 PM CDT us Jailene Lux SHANK MAKER, SSN/SSBN ASSISTANT NAVIGATOR LAB_1 Final Re sult [facility] [address] documented in this encounter Visit Diagnoses Diagnosis Anemia, unspecified Essential (primary) hypertension (HRC) Unspecified essential hypertension documented in this encounter Care Teams Land Conservation Specialist Relationship Specialty Start Date End Date Chirag Paz MD [address] [place] [address] PCP - General 08/01/17 documented as of this encounter
--- OUTSIDE RECORDS SUMMARY | 2024-11-04 19:32 | XMS_ITS | Data Portability ---
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 - All questions have been answered. We have talked about all the treatment options and have agreed upon the following: - All questions answered to the patient's satisfaction - Will call the clinic or return if any interim concerns - Images: Lumbar CT - Activities: WBAT, Instructed to BLTs, avoid strenuous activity and heavy lifting - Patient to start of course of PT for the lumbar spine and SIJ - 3x right SIJ inj ordered - Pain control: recommended course of OTC NSAIDs if no medical contraindications - FU: Patient to return clinic in 3 months with a lumbar CT prior [email or web address] Not available 03/12/2023 11:34:03 Plan of Treatment Reminders Order Date Submit Date Provider Last Modified By Organization Details Last Modified Time Details Appointments None record ed. Lab None record ed. Referral None record ed. Procedures None record ed. Surgeries None record ed. Imaging None record ed. Medication Orders None record ed. Patient TargetsNo targets recorded. Patient Instructions Encounter Date Encounter Id Patient Instructions Last Modified By Organization Details Last Modified Time 03/06/2023 [id number] Kelby Curry am serving as a scribe to document services personally performed by Dr. Ovalle on 03/06/23 at 10:00 AM. All documentation has been reviewed by Dr. Ovalle. Synopsis: 03/06/23, KA, ELVIRA: L CT prior: s/p L2-S1 OLLIF, HW int, fz adv, axial LBP, Lt SIJ dz: PT, 3x Rt. SIJ inj, FU [address] prior [email or web address] Not available 03/12/2023 11:33:55 Reason for Referral None Reported. Results Created Date Observation Date Name Description Value Unit Range Abnormal Flag Note LastModifiedBy Organization Detail LastModifiedTime 02/09/20 23 02/08/2023 XR, knee, 3 view No observ ation record ed. [facility] [address], [place], [address], 02/11/2023 09:05:40 02/09/20 23 02/08/2023 MRI, knee, w/o contr ast No observ ation record ed. [facility] [address], [place], [address], 02/11/2023 09:06:13 03/12/20 23 03/06/2023 CT, lumba r spine , w/o contr ast No observ ation record ed. DIEGO Not Available 2022 11:41:36 Result Notes None recorded. 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) Jose David Brent null, [place] - [facility] 2 12:25:23 Arthritis 9545966 Active 2021 Jose David Brent null, [place] - [facility] 2 12:25:35 Depressiv e disorder 61878412 Active 2021 Jose David Brent null, [place] - [facility] 2 12:25:42 Hypertens juana disorder 09938099 Active 2021 Jose David Brent null, [place] - [facility] 12:25:51 Neuropath y 116646448 [facility] [place] [facility] 12:26:00 Osteoporo sis 17675677 Active 2021 Jose David Brent null, [place] - [facility] 2 12:26:13 Periphera l vascular disease 809727850 Active [facility] [place] - [facility] 2 12:26:24 Problem Notes None recorded. Procedures Surgical History Date Name Laterality Status Provider Name and Address Organization Details Recorded Time 02/23/20 23 Tr[facility] Point [facility] 01/11/2023 09:55:30 02/16/20 23 Trigger Point Injection cancelled Halima [facility] 01/09/2023 11:42:19 02/09/20 23 Lumbar [facility]up[facility] 02/08/2023 14:56:44 02/09/20 23 Trigger Point Injection completed Halima Sellers [facility] 02/08/2023 14:56:49 02/02/20 23 Lumbar Acupuncture completed Halima Sellers [facility] 02/01/2023 14:27:07 02/02/20 23 Tr[facility] Point [facility]jection [facility] 02/01/2023 14:27:12 01/31/20 23 Joint Injection completed Khloe Carrillo [facility] 01/30/2023 15:14:11 01/26/20 23 Lumbar Acupuncture completed Halima Sellers [facility] 01/25/2023 16:09:58 01/26/20 23 Trigger Point Injection completed Halima Marlo [facility] 01/25/2023 16:10:03 01/19/20 23 Lumbar Acupuncture completed Halima Marlo [facility] 01/18/2023 14:32:21 01/19/20 23 Trigger Point Injection completed Halimaalejandra Sellers [facility] 01/18/2023 14:32:39 01/12/20 23 Lumbar Acupuncture completed Americo Thurston [facility] 01/14/2023 12:25:00 01/01/20 23 Lumbar Acupuncture completed Khloe Fatimaham [place] - [facility] 12/31/2022 12:37:05 11/22/19 21 Hip Surgery completed Jose David Brent [place] - [facility] 12/05/2021 15:45:34 Imaging Results Imaging Date Name Status LastModified by Organiz ation Details LastModified Time 02/08/2023 XR, knee, 3 view completed [email or web address] [address], [place], [address], 02/11/2023 09:05:40 02/08/2023 MRI, knee, w/o contrast completed [email or web address] [address], [place], [address], 02/11/2023 09:06:13 03/06/2023 CT, lumbar spine, w/o contrast completed DIEGO Information not available 03/12/2023 11:41:36 Procedure Notes None recorded. Medical Equipment None Reported. Allergies Allergen ID Allergen Name Allergen Category Reaction Reaction Severity Criticality Documentation Date Start Date Code Code System Note Provider Name and Address Organization Details Recorded Time 5897 shellfish derived food,medi cation Not available Not available Not available 12/05/2021 98520 UNK sever e bloat ing Not Available Not Available Not Available 5898 cat dander environme nt Not available Not available Not available 12/05/2021 79652 UNK Not Available Not Available Not Available 5899 Substance with morphinan structure and opioid receptor agonist mechanism of action (substanc e) medicatio n other Not available Not available 12/05/2021 25627 9000 SNOMED Alter ed menta l statu s; Vicod in durin g hip surge ry okay for short cours e Not Available Not Available Not Available Medications Name Sig Start Date Stop Date Status Note LastModified by Organization Details LastModified Time methocarb vannesa 500 mg tablet Take 1 tablet twice a day by oral route as needed for 30 days. active Not Available Not Available No t Available lamotrigi ne 200 mg tablet 12/26 completed Not Available Not Available Not Available hydrocodo ne 5 mg-acetam inophen 325 mg tablet 12/26 completed Not Available Not Available Not Available prednison e 20 mg tablet 12/26 completed Not Available Not Available Not Available clonazepa m 0.5 mg tablet 12/26 completed Not Available Not Available Not Available sertralin e 100 mg tablet active Not Available Not Available Not Available amlodipin e 5 mg tablet active Not Available Not Available Not Available oxycodone -acetamin ophen 5 mg-325 mg tablet Take 1 tablet every 4-6 hours by oral route as needed. 07/12 completed Pt reports allergy to oxycodon e. Not Available Not Available Not Available hydromorp norberto 2 mg tablet Take 1 tablet twice a day by oral route as needed for 7 days. active Not Available Not Available No t Available lorazepam 0.5 mg tablet 01/01 completed Not Available Not Available Not Available gabapenti n 300 mg capsule Take 2 capsules every day by oral route at bedtime for 30 days. 09/28 completed Not Available Not Available Not Available hydroxyzi ne HCl 25 mg tablet Take 1 tablet 3 times a day by oral route. [address] Heredia's POC order on 07/06/22 appt. Not Available Not Available Not Available gabapenti n 100 mg capsule Take up to 300mg po qamTake up to 300mg po q noonTake up to 900mg po qhs 09/28 completed Not Available Not Available Not Available labetalol 100 mg tablet active Not Available Not Available Not Available hydroxyzi ne HCl 10 mg tablet Take 1 tablet twice a day by oral route as needed for 30 days. 2021 active Not Available Not Available Not Avai lable sertralin e 50 mg tablet 12/26 completed Not Available Not Available Not Available azithromy reilly 500 mg tablet active Not Available Not Available No t Available escitalop karolina 20 mg tablet 12/26 completed Not Available Not Available Not Available baclofen 5 mg tablet 01/01 completed Not Available Not Available Not Available Vitals Date Recorded Body height Heart rate Body temperature Oxygen saturation Oxygen saturation in Arterial blood by Pulse oximetry Provider Name and Address Organization Details Last Updated DateTime 3 154.94 cm 68 /min 97.2 [degF] 96 % 96 % Halima Sellers [place] - [facility] 3 14:32:12 Date Recorded Body height Heart rate Body temperature Oxygen saturation Oxygen saturation in Arterial blood by Pulse oximetry Provider Name and Address Organization Details Last Updated DateTime 3 154.94 cm 72 /min 98.1 [degF] 96 % 96 % Halima Sellers [place] - [facility] 3 14:34:53 Date Recorded Body height Heart rate Body temperature Oxygen saturation Oxygen saturation in Arterial blood by Pulse oximetry Provider Name and Address Organization Details Last Updated DateTime 3 154.94 cm 81 /min 96.9 [degF] 96 % 96 % Kelby Kenney [place] - [facility] 3 13:32:50 Date Recorded Body height Heart rate Body temperature Oxygen saturation Oxygen saturation in Arterial blood by Pulse oximetry Provider Name and Address Organization Details Last Updated DateTime 3 154.94 cm 63 /min 97.3 [degF] 98 % 98 % Americo Thurston [place] - [facility] 3 13:59:58 Date Recorded Body height Heart rate Body temperature Oxygen saturation Oxygen saturation in Arterial blood by Pulse oximetry Provider Name and Address Organization Details Last Updated DateTime 3 154.94 cm 67 /min 97.9 [degF] 97 % 97 % Denise garcia [place] - [facility] 3 10:46:49 Social History Question Answer Notes LastModified by Organizat ion Details LastModified Time Tobacco Smoking Status Former Smoker Jose David potts, [place] - [facility] 12/05/2021 15:43:49 What Is Your Level Of Alcohol Consumption? Occasional [email or web address] Information not available 09/28/2022 How Many Times Per Week Do You Consume Alcohol? Less Than 1 Time Per Week [email or web address] Information not available 01/30/2023 Do You Or Have You Ever Used E-cigarettes Or Vape? Never Used Electronic Cigarettes Information not available 12/05/2021 When Did You Quit Smoking? 1-5yearssince lastcigarette 2 Years Since Last Cigarette Information not available 12/05/2021 What Was The Date Of Your Most Recent Tobacco Screening? 03/06/2023 [email or web address] Information not available 03/06/2023 Do You Or Have You Ever Used Smokeless Tobacco? Never Used Smokeless Tobacco Information not available 12/05/2021 Do You Use Any Illicit Or Recreational Drugs? Yes Information not available 12/05/2021 Do You Or Have You Ever Used Any Other Forms Of Tobacco Or Nicotine? Yes Nicotine Gum (historical) Information not available 12/05/2021 Sex: Unknown Functional Status None recorded. Mental Status None recorded. Family History Relationship Description Onset Age of this Age Resolved Age Notes LastModified by Organization Details LastModified Time Mother Family history of breast cancer Not available 2021 15:38:52 Father Family history of cancer of colon Not available 2021 15:39:03 Father Family history of diabetes mellitus type 2 Not available 2021 15:39:15 Father Family history of ischemic heart disease CABG x4 Not available 12/05/2021 15:39:48 Medical History Condition Response Gout N Blood Diseases N MRSA N Blood Transfusion N Hernia N Head Trauma/Injury N Lung Disease N Depression Y COPD N Developmental or Behavioral Disorders N Pacemaker N Difficulty Swallowing N Anesthesia Complications N Cystic Fibrosis N Anxiety Disorder N Muscle, Joint, or Bone Problems Y Obesity N Vision or Eye Problems N Arthritis Y Blood Clot N Stroke N Bladder or Kidney Problems N High Cholesterol N Headaches N Fibromyalgia N Allergies/Hayfever N Parkinson's Disease N Ear or Hearing Problems N Hospitalizations N GI Problems N ADD/ADHD N Skin Problems N Anemia N PTSD N Multiple Sclerosis N Meningitis N Heart Attack (AL) N Diabetes N Immunocompromised N Hepatitis/Liver Disease N Bleeding Disorder N Cancer/Tumors N Heart Murmur N Cerebral Palsy N AIDS/HIV N Congestive Heart Failure (CHF) N Abuse/Domestic Violence N Asthma N Peripheral Vascular Disease Y Epilepsy/Seizures N AFib N Seizures N Reflux/GERD N Sleep Apnea N Thyroid Disorder N Aneurysm Y Neuropathy Y Pulmonary Embolism N Hypertension Y Autism Spectrum Disorder (ASD) N Osteoporosis Y Gynecological HistoryNo gynecological history recorded. Obstetrics History GPAL:G 0 P 0 0 0 0 Past Encounters Encounter ID Performer Location Encounter Start Date Encounter Closed Date Diagnosis/Indication Diagnosis SNOMED-CT Code Diagnosis ICD10 Code Diagnosis Note [id number] Srini Shanique [facility] [address] [place] [address] 13 [facility] [address]ber[address], [place] [address] 12/05/2021 14:33:46 12/06/2021 16:53:03 Lumbar spondylolisthesis [id number] 20092 M43.16 Degenerati on of lumbar intervertebral disc 34507326 M51.36 Meralgia p aresthetica of right leg 4078211675 16811 G57.11 [id number] Samia Heredia MD [facility] [address] [place] [address], [place] [address] 01/01/2022 12:43:37 01/02/2022 12:17:18 Lumbar spondylolisthesis [id number] 15927 M43.16 M51.36 M51.26 M51.16 M41.86 [id number] Khloe Carrillo [facility] [address] [place] [address], [place] [address] 03/27/2022 14:42:11 03/27/2022 15:11:39 [id number] Clementine Hebert [facility] [address] [place] [address], [place] [address] 06/12/2022 11:01:36 06/12/2022 13:25:15 [id number] Jose David Acosta [facility] [address] [place] [address], [place] [address] 06/21/2022 11:01:12 06/26/2022 10:15:24 History of lumbar fusion 9428585732 9106 Z98.1 Low back pain 772000119 M54.50 [id number] Samia Heredia MD [facility] [address] [place] [address], [place] [address] 07/06/2022 15:29:50 07/09/2022 10:35:58 History of arthrodesis [id number] Z98.1 [id number] Kely Negrete [facility] [address] [place] [address], [place] [address] 07/06/2022 15:29:09 07/06/2022 16:29:30 [id number] Jose David Acosta [facility] [address] [place] [address], [place] [address] 08/23/2022 13:43:44 08/24/2022 16:51:05 History of arthrodesis 433821287 Z98.1 Low back pain 320942947 M54.50 G89.29 S34.21XD Pain of le ft knee joint 8280518072 41967 M25.562 M25.572 [id number] Jose David Acosta [facility] [address] [place] [address], [place] [address] 09/28/2022 10:53:57 10/01/2022 14:46:39 Low back pain 849881977 M54.50 G89.29 S34.21XD Z98.1 M62.81 M54.40 Pain of le ft knee joint 5098132095 03253 M25.562 M25.572 [id number] Jose David Acosta [facility] [address] [place] [address], [place] [address] 11/12/2022 10:44:12 11/13/2022 14:21:14 Low back pain 590024914 M54.50 G89.29 S34.21XD Z98.1 M62.81 M54.40 Pain of le ft knee joint 1595987594 64604 M25.562 M25.572 [id number] Jose David Acosta [facility] [address] [place] [address] [facility] [address] 12/28/2022 15:51:26 12/31/2022 16:40:50 Low back pain 257523262 M54.50 G89.29 S34.21XD Z98.1 M62.81 M54.40 Pain of le ft knee joint 7341223932 72119 M25.562 M25.572 [id number] Jose David Acosta [facility] [address] [place] [address] [facility] [place] [address] 12/31/2022 11:12:11 12/31/2022 17:10:44 Low back pain 528835671 M54.50 G89.29 S34.21XD Z98.1 M62.81 M54.40 [id number] Jose David Acosta [facility] [place] [address] [place] [address] [place] [address] 01/11/2023 13:32:41 01/14/2023 11:50:26 [id number] Jose David Acosta [facility] [place] [address] [place] [address] [place] [address] 01/18/2023 13:14:21 01/21/2023 10:16:30 [id number] Jose David Acosta [facility] [place] [facility] [address] [place] [address] [place] [address] 01/25/2023 14:23:13 01/28/2023 08:48:11 [id number] Jose David Acosta [facility] [place] [facility] [address] [place] [address] [place] [address] 02/01/2023 13:25:10 02/01/2023 15:04:11 [id number] Jose David Acosta [facility] [place] [facility] [address] [place] [address] [place] [address] 02/08/2023 13:19:44 02/12/2023 12:31:39 [id number] Jose David Acosta [facility] [place] [facility] [address] [place] [address] [place] [address] 01/21/2023 10:15:07 01/21/2023 14:35:29 [id number] Jose David Acosta [facility] [place] [facility] [address] [place] [address] [place] [address] 01/30/2023 14:25:48 02/01/2023 11:51:50 [id number] Everardo Cormiersima [facility] [place] [facility] [address] [place] [address] [place] [address] 03/06/2023 10:03:29 03/06/2023 16:32:01 Health Concerns Section Related Observation LastModified by Organization Detai ls LastModified Time None Recorded Concern Status LastModified by Organization Details LastModified Time None Recorded Advance Directives Directive None Recorded Payers Encounter Date Sequence Insurance Name Policy Number Policy Conley Covered Member ID Conley Member ID Guarantor Name 01/25/2023 1 [place] [id number] Harleen Moonantonio [id number] Harleen Gibson 01/30/2023 1 [place] [id number] Harleen Monetccolo [id number] Harleen Monetccolo 02/01/2023 1 [place] [id number] Harleen Moonantonio [id number] Harleen Monetccantonio 02/08/2023 1 [place]ACEMENT/AD VANTAGE - HMO) [id number] Harleen Monetmelissa [id number] Harleen Monetccantonio 03/06/2023 1 [place]/AD VANTAGE - HMO) [id number] Harleen Moonantonio [id number] Harleen Gibson Notes Date Note Type Note Provider Name and Address Organization Details Recorded Time 03/06/2023 text/html Harleen HUTCHINSON 2yo [id number] Chief Complaint:low back pain History of Present Illness:The patient is a 72 year old female s/p L2-S1 OLLIF (06/07/22) who presents for follow up evaluation of low back pain. Today the patient reports low back pain with LLE radiculopathy rated 4-6/10 in severity. The patient notes that her radiculopathy extends into her left foot and knee. The patient reports that she is frustrated because she still needs to use a walker to ambulate and is 9 months post-op. The patient reports that the bottom of her foot feels like sandpaper and that she is unable to bed her big toe up on her left foot. The patient endorses that she will begin attending physical therapy 2x/week starting on Saturday. This [facility] be [facility] at [facility]. Pain ProfileOnset / Duration: Location: Lower back and LLEHow long: Characterization: Burning / sharp / stabbing Alleviating and Aggravating factors: Radiation: Radiates into the LLESeverity: 4-6/10Additional notes:Urinary/ Fecal incontinence (N); Saddle anesthesia (N); history of ongoing CA (N);Inflammatory conditions (N); Immunosuppression (N) Previous treatments:Physical therapy - yes (beginning on Saturday)Gait aid - WalkerNarcotics - HydromorphoneOther medications: sertraline, amlodipine, methocarbamol, labetalol, hydroxyzine PMHxDM: noSmoking: former SHx:Blood thinners:Elicit Drugs: medical cannabisAlcohol: occasional Everardo potts, [place] - [facility] 03/21/2023 11:27:31 OBGyn Episode No OBEpisode recorded.
--- OUTSIDE RECORDS SUMMARY | 2024-11-04 19:32 | XMS_ITS | Clinical Summary ---
Author Organization [facility] Address [address] [place] [address] Care Team Providers Care Freight Representative Name Role Phone Chirag Paz MD Primary Care Provider +1- [phone] Source Comments You are receiving this document as you are listed as the primary care provider,follow-up provider, or the patient has been referred to you for consultation.This is in compliance with the Medicare and[facility] EHR Incentive Program,which states Providers who transition their patient to another setting of careor provider of care or refers their patient to another provider of care shouldprovide summary care record for each transition of care or referral. [facility] Active Allergy Reactions Criticality Noted Date Comments Cat Dander Itching 09/09/2008 Shellfish-Derived Products Unknown 7 Medications acetaminophen (TYLENOL) 500 MG tabletIndications: Pain Take 2 Tabs by mouth every 8 hours. Maximum acetaminophen dose is 4000 mg in 24 hours Indications: Pain 100 Tab 11 09/04/20 17 Active clonazePAM (KLONOPIN) 0.5 MG tablet Take 2 Tabs by mouth daily at bedtime. 30 Tab 09/04/20 17 Active lamoTRIgine (LAMICTAL) 200 MG tablet Take 0.5 Tabs by mouth 4 times a day. 09/04/20 17 Active escitalopram oxalate (LEXAPRO) 5 MG tablet Take 1 Tab by mouth two times a day. 09/04/20 17 Active ondansetron (ZOFRAN-ODT) 4 MG disintegrating tabletIndications: nausea and vomiting Take 1 Tab by mouth every 8 hours as needed. Indications: nausea and vomiting 09/04/20 17 Active polyethylene glycol (MIRALAX) packetIndications: Constipation Take 1 Packet by mouth daily. Indications: Constipation 09/05/20 17 Active sennosides-docusat e sodium (SENNA-S,SENNA PLUS) 8.6-50 MG per tabletIndications: Constipation Take 2 Tabs by mouth two times a day. Indications: Constipation 09/04/20 17 Active melatonin 3 MG tablet Take 2 Tabs by mouth daily at bedtime. 100 Tab 3 09/04/20 17 Active multivitamin with minerals (CERTAVITE,MYADEC) tabletIndications: vitamin deficiency Take 1 Tab by mouth daily. Indications: vitamin deficiency 09/05/20 Active cholecalciferol (VITAMIN D3) 1000 UNITS tabletIndications: Vitamin D Deficiency Take 1 Tab by mouth daily. Indications: Vitamin D Deficiency 100 Tab 3 09/05/20 17 Active oxyCODONE (ROXICODONE) 5 MG immediate release tablet Take 1-2 Tabs by mouth every 4 hours as needed for Pain. 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 Pulse 68 09/05/2017 5:11 AM LANDSCAPE HORTICULTURE INSTRUCTOR Temperature 36.7 C (98.1 F) 09/05/2017 5:11 AM LANDSCAPE HORTICULTURE INSTRUCTOR Respiratory Rate 18 09/05/2017 5:11 AM LANDSCAPE HORTICULTURE INSTRUCTOR Oxygen Saturation 96% 09/05/2017 5:11 AM LANDSCAPE HORTICULTURE INSTRUCTOR Inhaled Oxygen Concentration - - Weight 79.5 kg (175 lb 3 oz) 09/05/2017 7:49 AM LANDSCAPE HORTICULTURE INSTRUCTOR Height 154.9 cm (5' 1) 08/04/2017 2:34 PM LANDSCAPE HORTICULTURE INSTRUCTOR Body Mass Index 33.1 08/04/2017 2:34 PM LANDSCAPE HORTICULTURE INSTRUCTOR Plan of Treatment Health Maintenance Due Date Last Done Comments Colon Cancer Screening Plan Due 1950 Hep C Screening (Preventive Services) 1950 Medicare Welcome Visit 1950 Mammogram 1950 Cholesterol 1995 Zoster/Shingles (1 of 2) 2000 Dexa 2015 Pneumococcal 50+ Yrs (1 - PCV) 2015 DTaP/Tdap/Td (2 - Tdap) 08/26/2018 08/26/2008 COVID-19 Vaccine ( - 2023-2 5 season) 2024 Influenza (#1) 2024 RSV (1 - 1-dose 75+ series) 2025 HepA Aged Out No longer eligi ble [...] on patient's age to complete this topic Insurance [facility] BLUE MEDICARE MANAGED CARE BS [id number] [id number] [facility] [employer] [employer] [employer] BLUE MEDICARE MANAGED CARE BS Advance Directives * Full Code (Latest Code Status on File) Date Activated Date Inactivated Comments 08/04/2017 2:33 PM 09/05/2017 1:02 PM Care Teams Freight Representative Relationship Specialty Start Date End Date Chirag Paz MD [address] [place] [address] PCP - General 08/01/17
[2024-11-04 19:33] VITALS: BP 149/92; PULSE 102; RESP 18; TEMP 36.5; O2SAT 93; BMI 36.1
--- OUTSIDE RECORDS SUMMARY | 2024-11-04 19:33 | XMS_ITS | Data Portability ---
Author Organization [place] - [facility], autoContract - [facility] Address [address] [place] [address] Assessment Encounter Date Assessment Date Assessment LastModified [...] Recorded Time Somatic dysfunction of pelvic region 421782466 Active 2024 Brian Ryan, NAVARRO [address] [facility], [place], [address] , [facility] 5 15:54:35 Thoracic segmental dysfunction 018159053 Active 2024 Brian Ryan DC [address], [place], [address] , [facility] 5 15:42:49 Low back pain 657326270 Active 2024 Brian Ryan DC [address], [place], [address] , [facility] 5 15:42:49 Lumbar segmental dysfunction 795661145 Active 2024 Not Available [facility] 11:22:21 Somatic dysfunction of sacral spine 929200032 Active 2024 Not Available [facility] 11:22:21 Problem Notes None recorded. Procedures Surgical History Date Name Laterality Status Provider Name and Address Organization Details Recorded Time 5 94762: Spinal manipulation , 3 to 4 regions completed Brian Ryan DC [address], [place], [address], [facility] 10/15/2024 16:51:31 5 40193: Spinal manipulation , 3 to 4 regions completed Brian Ryan DC [address] [place] [address], [place], [address], [facility] 10/08/2024 15:53:23 5 13966: Spinal manipulation , 3 to 4 regions completed Brian Ryan DC [address] [facility] [address], [place], [address], [facility] 10/01/2024 15:43:19 Imaging Results None recorded. Procedure [...] SNOMED-CT Code Diagnosis ICD10 Code Diagnosis Note [id number] Brian Ryan DC [facility] & [address] [address] 10/01/2024 15:22:35 10/01/2024 16:02:22 Lumbar segmental dysfunction 833842169 M99.03 Low back pain 516823594 M54.50 Somatic dy sfunction of sacral spine 506781261 M99.04 Thoracic s egmental dysfunction 703413012 M99.02 [id number] Brian Ryan DC [address] [address] 10/08/2024 14:40:58 10/08/2024 16:10:10 Low back pain 832251318 M54.50 Thoracic s egmental dysfunction 060396459 M99.02 Somatic dy sfunction of pelvic region 000059641 M99.05 Somatic dy sfunction of sacral spine 969045582 M99.04 [id number] Brian Ryan DC [address] [address] 10/15/2024 15:22:15 10/15/2024 17:15:06 Lumbar segmental dysfunction 390552518 M99.03 Low back pain 865345409 M54.50 Somatic dy sfunction of sacral spine 527824371 M99.04 Somatic dy sfunction of pelvic region 382097701 M99.05 Health Concerns Section Related Observation LastModified by Organization Detai ls LastModified Time None Recorded Concern Status LastModified by Organization Details LastModified Time None Recorded Advance Directives Directive None Recorded Payers Encounter Date Sequence Insurance Name Policy Number Policy Conley Covered Member ID Conley Member ID Guarantor Name 10/01/2024 1 [employer] [id number] Harleen Ruccolo [id number] Harleen Ruccolo 10/08/2024 1 [place] [id number] Harleen Ruccolo [id number] Harleen Ruccolo 10/15/2024 1 [place] [id number] Harleen Ruccolo [id number] Harleen Ruccolo Notes Date Note Type Note Provider Name and Address Organization Details Recorded Time 10/01/2024 text/html HPI - Lumbar SpineReported bypatient.Location: left; With radiation to knee Quality:aching Severity:not changing Timing:morning Aggravating Factors:standing Alleviating Factors:vanessa Ryan DC [address], [place], [address], [facility] 10/01/2024 15:43:39 10/08/2024 text/html HPI - Lumbar SpineReported bypatient.Location: left; With radiation to knee Quality:aching Severity:not changing Timing:morning Aggravating Factors:standing Alleviating Factors:vanessa Ryan DC [address], [place], [address], [facility] [place] [facility] 10/08/2024 15:54:59 10/15/2024 text/html HPI - Lumbar SpineReported bypatient.Location: left; With radiation to knee Quality:aching Severity:not changing Timing:morning Aggravating Factors:standing Alleviating Factors:vanessa Ryan DC [address], [place], [address], [facility] [place] [facility] 10/15/2024 16:52:17 OBGyn Episode No OBEpisode recorded.
--- OUTSIDE RECORDS SUMMARY | 2024-11-04 19:33 | XMS_ITS | Encounter Summary ---
Author Organization [facility] Address [address] [facility] [place] [address] Care Team Providers Care Checker Loader Name Role Phone Chirag Paz MD Primary Care Provider Home Snf(Fgs), [facility] Unavailable Jailene Lux APRN HEAD SHIPPER Unavailable + Encounter Details Date Type Department Care Team (Late st Contact Info) Description 05/25/2022 Orders Only [facility] [address] [place] [address] Samia Heredia MD [facility] [address] [place] [address] Pre-operative laboratory examination (Primary Dx) Social History Tobacco Use Types Packs/Day Years Used Date Smoking Tobacco: Never Assessed Comments Unknown Sex and Gender Information Value Date Recorded Sex Assigned at Not on file 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 Gender Identity Not on file Sexual Orientation Not on file documented as of this encounter Plan of Treatment Not on file documented as of this encounter Visit Diagnoses Diagnosis Pre-operative laboratory examination- Primary Pre-procedural laboratory examination documented in this encounter Care Teams Checker Loader Relationship Specialty Start Date End Date Chirag Paz MD [facility] [address] [place] [address] PCP - General Emergency Medicine 06/07/22 Home Snf(Fgs), [address] [phone] 06/11/22 07/26/22 Jailene Lux APRN HEAD SHIPPER [address] [place] [address] Assigned Pain Medication Provider 10/01/22 03/22/23 documented as of this encounter
--- OUTSIDE RECORDS SUMMARY | 2024-11-04 19:33 | XMS_ITS | Continuity of Care Document ---
Author Organization [facility] Address [address] [facility] [address] [place] [address] Assessment No assessment recorded. Plan of Treatment [...] Recorded Time Somatic dysfunction of pelvic region 432644347 Active 2024 Brian Ryan DC [address] [facility] [address] [facility], [place], [address] , [facility] 5 15:54:35 Thoracic segmental dysfunction 460633767 Active 2024 Brian Ryan DC [address], [place], [address] , [facility] 5 15:42:49 Low back pain 846463436 Active 2024 Brian Ryan DC [address], [place], [address] , [facility] 5 15:42:49 Lumbar segmental dysfunction 064139139 Active 2024 Not Available [facility] 11:22:21 Somatic dysfunction of sacral spine 995218154 Active 2024 Not Available [facility] 5 11:22:21 Problem Notes None recorded. Procedures Surgical History Date Name Laterality Status Provider Name and Address Organization Details Recorded Time 5 55131: Spinal manipulation , 3 to 4 regions completed Brian Ryan DC [address] [facility], [place], [address], [facility] 10/15/2024 16:51:31 5 52012: Spinal manipulation , 3 to 4 regions completed Brian Ryan DC [address], [place], [address], [facility] 10/08/2024 15:53:23 5 50966: Spinal manipulation , 3 to 4 regions completed Brian Ryan DC [address] [facility] [address], [place], [address], [facility] 10/01/2024 15:43:19 Imaging Results None [...] SNOMED-CT Code Diagnosis ICD10 Code Diagnosis Note [id number] Brian Ryan DC [facility] [address] [place] [address] 10/01/2024 15:22:35 10/01/2024 16:02:22 Lumbar segmental dysfunction 197470651 M99.03 Low back pain 158128939 M54.50 Somatic dy sfunction of sacral spine 175650289 M99.04 Thoracic s egmental dysfunction 446266536 M99.02 [id number] Brian Ryan DC [facility] [address] [place] [address] 10/08/2024 14:40:58 10/08/2024 16:10:10 Low back pain 013451317 M54.50 Thoracic s egmental dysfunction 691556075 M99.02 Somatic dy sfunction of pelvic region 635878217 M99.05 Somatic dy sfunction of sacral spine 095402098 M99.04 Health Concerns Section Related Observation LastModified by Organization Detai ls LastModified Time None Recorded Concern Status LastModified by Organization Details LastModified Time None Recorded Payers Encounter Date Sequence Insurance Name Policy Number Policy Conley Covered Member ID Conley Member ID Guarantor Name 10/08/2024 1 [facility] ([place]) [id number] Harleen Gibson [id number] Harleen Gibson Notes Date Note Type Note Provider Name and Address Organization Details Recorded Time 10/08/2024 text/html HPI - Lumbar SpineReported bypatient.Location: left; With radiation to knee Quality:aching Severity:not changing Timing:morning Aggravating Factors:standing Alleviating Factors:ice Brian Ryan DC [address], [place], [address], [facility] - [facility] 10/08/2024 15:54:59 OBGyn Episode No OBEpisode recorded.
[2024-11-04 20:19] LABS: PCR FLU A Negative PCR FLU A (Negative); PCR FLU B Negative PCR FLU B (Negative); PCR RSV Negative PCR RSV (Negative); SARS PCR* Negative SARS-CoV-2 (Negative)
--- OUTSIDE RECORDS SUMMARY | 2024-11-04 20:24 | XMS_ITS | Clinical Summary ---
Author Organization [facility] Address [address] [place] [address] Care Team Providers Care Storekeeper Helper Name Role Phone Chirag Paz MD Primary Care Provider +1- [phone] Source Comments You are receiving this document as you are listed as the primary care provider,follow-up provider, or the patient has been referred to you for consultation.This is in compliance with the Medicare and[facility] EHR Incentive Program,which states Providers who transition their patient to another setting of careor provider of care or refers their patient to another provider of care shouldprovide summary care record for each transition of care or referral. [facility] Allergies Active Allergy Reactions Criticality Noted Date [...] Comments Blood Pressure 134/70 09/05/2017 5:11 AM EMULSIFICATION OPERATOR Pulse 68 09/05/2017 5:11 AM EMULSIFICATION OPERATOR Temperature 36.7 C (98.1 F) 09/05/2017 5:11 AM EMULSIFICATION OPERATOR Respiratory Rate 18 09/05/2017 5:11 AM EMULSIFICATION OPERATOR Oxygen Saturation 96% 09/05/2017 5:11 AM EMULSIFICATION OPERATOR Inhaled Oxygen Concentration - - Weight 79.5 kg (175 lb 3 oz) 09/05/2017 7:49 AM EMULSIFICATION OPERATOR Height 154.9 cm (5' 1) 08/04/2017 2:34 PM EMULSIFICATION OPERATOR Body Mass Index 33.1 08/04/2017 2:34 PM EMULSIFICATION OPERATOR Plan of Treatment Health Maintenance Due Date [...] patient's age to complete this topic Insurance [facility] [employer] BLUE MEDICARE MANAGED CARE BS [id number] [id number] [facility] [employer] BLUE [facility] [employer] BLUE MEDICARE MANAGED CARE BS Advance Directives * Full Code (Latest Code Status on File) Date Activated Date Inactivated Comments 08/04/2017 2:33 PM 09/05/2017 1:02 PM Care Teams Storekeeper Helper Relationship Specialty Start Date End Date Chirag Paz MD [address] [place] [address] PCP - General 08/01/17
--- OUTSIDE RECORDS SUMMARY | 2024-11-04 20:24 | XMS_ITS | Encounter Summary ---
Author Organization [employer] Address [address] [place] [address] Care Team Providers Care Concrete Tile Machine Operator Name Role Phone Chirag Paz MD Primary Care Provider +1- [phone] Encounter Details Date Type Department Care Team (Late st Contact Info) Description 07/06/2022 Lab Requisition [facility] [address] [facility]. [place], [place] [address] Jailene Lux, ACCOUNT EXECUTIVE HEALTHCARE, LABORATORY SAMPLE CARRIER [address] [place] [address] Anemia, unspecified; Essential (primary) hypertension Social History [...] - 145 mmol/L 07/09/2022 2:43 PM CDT [facility] Potassium 4.1 3.5 - 5.1 mmol/L 07/09/2022 2:43 PM CDT [facility] Chloride 106 98 - 109 mmol/L 07/09/2022 2:43 PM CDT [facility] CO2 25 20 - 29 mmol/L 07/09/2022 2:43 PM CDT [facility] Anion Gap 10 7 - 16 mmol/L 07/09/2022 2:43 PM CDT [facility] Calcium 8.9 8.4 - 10.4 mg/dL 07/09/2022 2:43 PM CDT [facility] BUN 17 7 - 26 mg/dL 07/09/2022 2:43 PM CDT [facility] Creatinine 0.69 0.55 - 1.02 mg/dL 07/09/2022 2:43 PM CDT [facility] Glucose 96 70 - 100 mg/dL 07/09/2022 2:43 PM CDT [facility] Comment:The given reference range is for the fasting state. Non-fasting reference range for glucose is 70 - 180 mg/dL. Hours Fasting Unknown 07/09/2022 2:43 PM CDT [facility] GFR, Estimated >60 >60 mL/min/1.7 3m2 07/09/2022 2:43 PM CDT [facility] Blood Venipuncture / Unknown 07/09/2022 7:22 AM CDT 07/09/2022 1:30 PM CDT us Jailene Lux APRN, LABORATORY SAMPLE CARRIER LAB_1 Final Re sult [facility] [address] [place] [address], [facility] * Hemoglobin, Blood (07/09/2022 7:22 AM CDT) Hemoglobin 12.3 12.0 - 15.5 g/dL 07/09/2022 2:09 PM CDT [facility] Blood Venipuncture / Unknown 07/09/2022 7:22 AM CDT 07/09/2022 1:33 PM CDT us Jailene Lux ACCOUNT EXECUTIVE HEALTHCARE, LABORATORY SAMPLE CARRIER LAB_1 Final Re sult [facility] [address] documented in this encounter Visit Diagnoses Diagnosis Anemia, unspecified Essential (primary) hypertension (HRC) Unspecified essential hypertension documented in this encounter Care Teams Concrete Tile Machine Operator Relationship Specialty Start Date End Date Chirag Paz MD [address] [place] [address] PCP - General 08/01/17 documented as of this encounter
--- OUTSIDE RECORDS SUMMARY | 2024-11-04 20:24 | XMS_ITS | Encounter Summary ---
Author Organization [employer] Address [address] [place] [address] Care Team Providers Care Fusing Furnace Loader Name Role Phone Chirag Paz MD Primary Care Provider +1- [phone] Encounter Details Date Type Department Care Team (Late st Contact Info) Description 06/13/2022 Lab Requisition [facility] [address] [facility]. [place], [place] [address] Jailene Lux, RATOPRINTER, LEGAL SUPPORT ASSISTANT [address] [place] [address] Anemia, unspecified; Essential (primary) hypertension Social History [...] - 145 mmol/L 06/15/2022 1:15 PM CDT [facility] Potassium 4.8 3.5 - 5.1 mmol/L 06/15/2022 1:15 PM CDT [facility] Chloride 106 98 - 109 mmol/L 06/15/2022 1:15 PM CDT [facility] CO2 25 20 - 29 mmol/L 06/15/2022 1:15 PM CDT [facility] Anion Gap 10 7 - 16 mmol/L 06/15/2022 1:15 PM CDT [facility] Calcium 9.7 8.4 - 10.4 mg/dL 06/15/2022 1:15 PM CDT [facility] BUN 25 7 - 26 mg/dL 06/15/2022 1:15 PM CDT [facility] Creatinine 0.70 0.55 - 1.02 mg/dL 06/15/2022 1:15 PM CDT [facility] GFR, Estimated >60 >60 mL/min/1.7 3m2 06/15/2022 1:15 PM CDT [facility] Glucose 116(H) 70 - 100 mg/dL 06/15/2022 1:15 PM CDT [facility] Comment:The given reference range is for the fasting state. Non-fasting reference range for glucose is 70 - 180 mg/dL. Hours Fasting 0 06/15/2022 1:15 PM CDT [facility] Blood Venipuncture / Unknown 06/15/2022 7:20 AM CDT 06/15/2022 12:43 PM CDT us Jailene Lux APRN, LEGAL SUPPORT ASSISTANT LAB_1 Final Re sult [facility] [address] [place] [address], [facility] * Hemoglobin, Blood (06/15/2022 7:20 AM CDT) Hemoglobin 12.6 12.0 - 15.5 g/dL 06/15/2022 1:04 PM CDT [facility] Blood Venipuncture / Unknown 06/15/2022 7:20 AM CDT 06/15/2022 12:46 PM CDT us Jailene Lux RATOPRINTER, LEGAL SUPPORT ASSISTANT LAB_1 Final Re sult [facility] [address] documented in this encounter Visit Diagnoses Diagnosis Anemia, unspecified Essential (primary) hypertension (HRC) Unspecified essential hypertension documented in this encounter Care Teams Fusing Furnace Loader Relationship Specialty Start Date End Date Chirag Paz MD [address] [place] [address] PCP - General 08/01/17 documented as of this encounter
--- OUTSIDE RECORDS SUMMARY | 2024-11-04 20:24 | XMS_ITS | Clinical Summary ---
Author Organization [place] Address [address] [facility] 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 Gender Identity Not on file Sexual Orientation [...] this topic Medical Devices Implanted Type Area Flight Tower Dispatcher Device Identifier Shelf Expiration Date Model / Serial / Lot Screw Bn 55mm 7.5mm St Cls 2 Thrd 127mm Ns Pathloc-L Spne Lf - [id number] Implanted:Qty : 2 on 06/07/2022 by Samia Heredia MD at [facility] Metallic Hardware/Anc hor N/A: Spine Lumbar AEGIS SPINE 03/19/[id number] S / / [id number] Screw Bn 50mm 7.5mm St Cls 2 Thrd 127mm Ns Pathloc-L Spne Lf - [id number] Implanted:Qty : 4 on 06/07/2022 by Samia Heredia MD at [facility] Metallic Hardware/Anc hor N/A: Spine Lumbar AEGIS SPINE 03/19/[id number] S / / [id number] Screw Bn 55mm 7.5mm St Cls 2 Thrd 127mm Ns Pathloc-L Spne Lf - [id number] Implanted:Qty : 2 on 06/07/2022 by Samia Heredia MD at [facility] Metallic Hardware/Anc hor N/A: Spine Lumbar AEGIS SPINE 03/19/2027 [id number] S / / [id number] Screw Bn 45mm 7.5mm St Cls 2 Thrd 127mm Ns Pathloc-L Spne Lf - [id number] Implanted:Qty : 1 on 06/07/2022 by Samia Heredia MD at [facility] Metallic Hardware/Anc hor N/A: Spine Lumbar AEGIS SPINE 05/04/2024 [id number] S / / [id number] Screw Bn 45mm 7.5mm St Cls 2 Thrd 127mm Ns Pathloc-L Spne Lf - [id number] Implanted:Qty : 1 on 06/07/2022 by Samia Heredia MD at [facility] Metallic Hardware/Anc hor N/A: Spine Lumbar AEGIS SPINE 06/16/20252990-1209 S / / [id number] 10 Cc Malhotra-Tcp Sponge 25mm X 100 Mm Implanted:Qty : 1 on 06/07/2022 by Samia Heredia MD at [facility] N/A: Back 02/20/2027 / [id number] / [id number] 110mm Won Implanted:Qty : 1 on 06/07/2022 by Samia Heredia MD at [facility] N/A: Back [id number] 0 / [id number] 10 Cc Malhotra-Tcp Sponge 25mm X 100 Mm Implanted:Qty : 1 on 06/07/2022 by Samia Heredia MD at [facility] N/A: Back 02/20/2027 / [id number] / [id number] Set Screw- Star, Open Type 9.7, 5.6mm Implanted:Qty : 10 on 06/07/2022 by Samia Heredia MD at [facility] N/A: Back 02/22/2025 [id number] S / / [id number] 10cc Malhotra-Tcp Sponge 25mm X 100mm Implanted:Qty : 1 on 06/07/2022 by Samia Heredia MD at [facility] N/A: Spine Lumbar 02/20/2027 AMWS-TCP- 10 / [id number] / [id number] Ollif Arrow Cage 27x11 Implanted:Qty : 1 on 06/07/2022 by Samia Heredia MD at [facility] N/A: Back [id number] 14 [id number] Ollif Arrow Cage 27x13 Implanted:Qty : 1 on 06/07/2022 by Samia Heredia MD at [facility] N/A: Back [id number] 14 [id number] Ollif Arrow Cage 30x13 Implanted:Qty : 1 on 06/07/2022 by Samia Heredia MD at [facility] N/A: Back 3125 14 Ollif Arrow Cage 30x14 Implanted:Qty : 1 on 06/07/2022 by Samia Heredia MD at [facility] N/A: Back [id number] 14 120mm Straight Notched Won Implanted:Qty : 1 on 06/07/2022 by Samia Heredia MD at [facility] N/A: Back 4895-7305 0S / / [id number] Procedures Procedure Name Priority Date/Time Associated Diagnosis [...] and gender (Mckenna et al., NEJM, DOI: 10.1056/QJUKrg7850877) Blood STRUCTURE OF RIGHT UPPER LIMB / Unknown Venipuncture / Unknown 06/09/2022 7:08 AM CDT 06/09/2022 7:16 AM CDT Chintan Avalos DO LAB - BLOOD ORDERABLES Fi nal Result LABORATORY [facility] [address] Lab (1st floor, no room number) [place] [address], [facility] [phone] * COLONOSCOPY (02/20/2013 12:00 AM CDT) 02/20/2013 [...] ACR CATEGORY: 1 NEGATIVE CONFIDENTIAL MEDICAL REPORT [address] [address] Name: CRISTINA GIBSON Account: [id number] IMRN: [id number] Number:[id number] Date of :1950 Location: [facility] Age: 62 Sex: FInterpreted by: PHILLIP MARLEY MD Ordered By:STEWART MONTERO [facility] Phy: STEWART MONTERO Date of Service:01/06/13 Exam: REASON FOR EXAM: MG SCREENING MAMMOGRAM BILAT SCREENING MAMMOGRAM RADIOLOGY REPORT This report is preliminary unless an electronic signature appears below. Electronically Signed By: PHILLIP MARLEY T: 01/06/2013 13:31Tech: [id number] Procedure Note Provider, Historical - 04/13/2021 FULL FIELD DIGITAL SCREENING MAMMOGRAM INDICATION: Screening. COMPARISON: 09/09/2008. FINDINGS: Breast tissue is heterogeneously dense which may compromisemammography. No radiographic evidence of malignancy. No significant changefrom previous mammogram. CAD analysis was performed and used in the interpretation of this exam. ACR CATEGORY: 1 NEGATIVE CONFIDENTIAL MEDICAL REPORT [address] [address] Name: CRISTINA GIBSON Account: [id number] IMRN: [id number] Number:[id number] Date of :1950 Location: [facility] Age: 62 Sex: FInterpreted by: PHILLIP MARLEY MD Ordered By:STEWART MONTERO [facility] Phy: STEWART MONTERO Date of Service:01/06/13 Exam: REASON FOR EXAM: MG SCREENING MAMMOGRAM BILAT SCREENING MAMMOGRAM RADIOLOGY REPORT This report is preliminary unless an electronic signature appears below. Electronically Signed By: PHILLIP MARLEY T: 01/06/2013 13:31Tech: [id number] us Historical Provider IMG MAMMOGRAPHY ORDERABLES F inal Result * (ABNORMAL) Lipid Profile (01/05/2013 10:41 AM CDT) LDL Cholesterol Calculated 134.6(H) <130.1 mg/dL 01/05/2013 10:41 AM CDT [facility] Cholesterol 233(H) <200 mg/dL 01/05/2013 10:41 AM CDT [facility] Direct Measure HDL 45 >39 mg/dL 01/05/2013 10:41 AM CDT [facility] Triglycerides 267(H) <151 mg/dL 01/05/2013 10:41 AM CDT [facility] 01/05/2013 10:4 1 AM CDT 01/05/2013 10:41 AM CDT Stewart Montero MD LAB - BLOOD ORDERABLES Final Result [facility] [address] [place] [address], [place] [facility] [address] [place] [address] from Last 3 Months or Most Recently Relevant to Health Maintenance Insurance [employer] [place] [employer]IC[employer] Advance Directives For more information, please contact: [phone] * Full Code (Latest Code Status on File) Date Activated Date Inactivated Comments 06/07/2022 3:21 PM 06/11/2022 3:15 PM All basic an d advanced life-sustaining interventions are performed as appropriate Question Answer Comments Code status determined by: Discussion with nallely nt/ legal decision maker Care Teams Ehr Trainer Relationship Specialty Start Date End Date Chirag Paz MD [facility] [address] [place] [address] PCP - General Emergency Medicine 06/07/22
--- OUTSIDE RECORDS SUMMARY | 2024-11-04 20:24 | XMS_ITS | Encounter Summary ---
Author Organization [facility] Address [address] [place] [address] Care Team Providers Care Supervisor Poultry Farm Name Role Phone Chirag Paz MD Primary Care Provider [phone]- [phone] Encounter Details Date Type Department Care Team (Latest Contact Info) Description 08/04/2017 Consent for Procedure/Treatm ent [facility] [address] [place] [phone] CV CONSENT FOR UESE OF PSYCHOTROPIC [...] on filedocumented in this encounter Care Teams Supervisor Poultry Farm Relationship Specialty Start Date End Date Chirag Paz MD [address] [place] [address] PCP - General 08/01/17 documented as of this encounter
--- OUTSIDE RECORDS SUMMARY | 2024-11-04 20:24 | XMS_ITS | Encounter Summary ---
Author Organization [facility] Address [address] [place] [address] Care Team Providers Care Paste Up Artist Name Role Phone Chirag Paz MD Primary Care Provider [phone]- [phone] Encounter Details Date Type Department Care Team (Latest Contact Info) Description 08/04/2017 Consent for Procedure/Treatm ent [facility] [address] [place] [phone] CV IMMUNIZATION RECORD Social History Tobacco [...] on filedocumented in this encounter Care Teams Paste Up Artist Relationship Specialty Start Date End Date Chirag Paz MD [address] [place] [address] PCP - General 08/01/17 documented as of this encounter
--- OUTSIDE RECORDS SUMMARY | 2024-11-04 20:25 | XMS_ITS | Encounter Summary ---
Author Organization [place] Address [address] [facility] [place] [address] Care Team Providers Care Movie Theater Usher Name Role Phone Chirag Paz MD Primary Care Provider Home Snf(Fgs), [facility] Unavailable Jailene Lux APRN MANAGER MALL Unavailable + Encounter Details Date Type Department Care Team (Late st Contact Info) Description 05/25/2022 Orders Only [facility] [address] [place] [phone] Samia Heredia MD [facility] [address] [place] [address] Pre-operative laboratory examination (Primary Dx) Social History Tobacco Use Types Packs/Day Years Used Date Smoking Tobacco: Never Assessed Comments Unknown Sex and Gender Information Value Date Recorded Sex Assigned at Not on file Legal Sex Female 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 Gender Identity Not on file Sexual Orientation Not on file documented as of this encounter Plan of Treatment Not on file documented as of this encounter Visit Diagnoses Diagnosis Pre-operative laboratory examination- Primary Pre-procedural laboratory examination documented in this encounter Care Teams Movie Theater Usher Relationship Specialty Start Date End Date Chirag Paz MD [facility] [address] [place] [address] PCP - General Emergency Medicine 06/07/22 Home Snf(Fgs), [address] [phone] 06/11/22 07/26/22 Jailene Lux APRN MANAGER MALL [address] [place] [address] Assigned Pain Medication Provider 10/01/22 03/22/23 documented as of this encounter
--- OUTSIDE RECORDS SUMMARY | 2024-11-04 20:25 | XMS_ITS | Clinical Summary ---
Author Organization [facility] Address [place], [place] [address] Care Team Providers Care Coconut Cooker Name Role Phone José Miguel Hall MD [facility] Unavailable Chirag Paz MD Primary Care Provider Allergies Active Allergy Reactions Criticality Noted Date Comments Cats (Fur, Dander, Saliva) Itching High 09/09/2008 Gabapentin Dizziness Low 02/24/2021 Morphine Itching Medium 02/24/2021 Oxycodone Hallucinations,Menta l Status Change High 02/24/2021 Shellfish Containing Products Nausea And Vomiting High 10/16/2010 Scallops /stomach upset Medications multivitamins-ca [id number]-uzph-soldv als (MULTIPLE VITAMIN, WOMENS) Tab tablet Take [...] Department Care Team Description 10/23/2024 12:30 PM LINEN AIDE Procedure Only [facility] [address] [place] [address] Radha Potts L Ac Acupuncture 10/23/2024 Travel 09/29/2024 1:00 PM LINEN AIDE Procedure Only [facility] [address] [place] [address] Radha Potts L Ac Acupuncture 09/29/2024 Travel 09/25/2024 1:00 PM LINEN AIDE Procedure Only [facility] [address] [place] [address] Radha Potts L Ac Acupuncture 09/25/2024 Travel 09/08/2024 1:00 PM LINEN AIDE Procedure Only [facility] [address] [place] [address] Radha Potts L Ac Acupuncture 09/08/2024 Travel 08/31/2024 10:30 AM LINEN AIDE Procedure Only [facility] [address] [place] [address] Radha Potts, Zulema Ac Acupuncture 08/31/2024 Travel 08/25/2024 8:30 AM LINEN AIDE Procedure Only [facility] [address] [place] [address] Radha Potts L Ac Acupuncture 08/25/2024 Travel 08/18/2024 11:00 AM LINEN AIDE Procedure Only [facility] [address] [place] [address] Radha Potts L Ac Acupuncture 08/18/2024 Travel [...] on file Legal Sex Female 5:54 AM LINEN AIDE Gender Identity Not on file Sexual Orientation [...] st Contact Info) Description 11/12/2024 11:00 AM LINEN AIDE Procedure Only [facility] [address] [place] [address] Radha Potts L [address] [place], [place] [id number] Health Maintenance Due Date Last Done Comments [...] 45-75 11/11/2024 11/11/2019, 12/14/2004 (Completed outside of [facility] [place]) RSV vaccine for adults or (1 - 1-dose 75+ series) 2025 Tetanus booster 05/10/2025 05/10/2015, 12/2007 (Completed outside of [facility] [place]), 08/26/2008 Tdap Completed 05/10/2015, 08/26/2008 Medical Devices Implanted Type Area Personnel Research Psychologist Device Identifier Shelf Expiration Date Model / Serial / Lot Spacer Stratus Frontal Microflow - [id number] Implanted:Qty: 1 on 10/17/2010 at [facility] Right: Nose ACCLARENT 07/24/2012 [id number] # / / [id number] Screw Facial 2x10mm Matrixmandible Coarse Slf Tppng - [id number] Implanted:Qty: 2 on 08/01/2017 by Freddy Mayes MD at [facility] Spine J And J Depuy CMF 401.940# / / Plate Facial 2mm 30hole Synthes Adaption - [id number] Implanted:Qty: 1 on 08/01/2017 by Freddy Mayes MD at [facility] Spine J And J Depuy CMF 447.380# / / Screw Facial 2x8mm Matrixmandible Coarse Slf Tppng Implanted:Qty: 7 on 08/01/2017 by Freddy Mayes MD at [facility] Spine [id number] / / Description:SCREW FACIAL 2X8 MM MATRIXMANDIBLE COARSE SLF TPPNG Dura Neuro 1x1in Duragen Plus Non-Sut - [id number] Implanted:Qty: 1 on 11/16/2019 by Franco Porter MD at [facility] Right: Cranium Integra CircalitciFlockOfBirds Bob 09/22/2022 [id number]# / / [id number] Screw Neuro 4mm Matrixneuro Slf Drill Titnm - [id number] Implanted:Qty: 7 on 11/16/2019 by Franco Porter MD at [facility] Right: Cranium J And J Depuy CMF [id number] 4.01# / / Plate Facial [id number] 4hole Synthes Box - [id number] Implanted:Qty: 2 on 11/16/2019 by Franco Porter MD at [facility] Right: Cranium J And J Depuy F [id number]# / / Procedures Procedure Name Priority Date/Time Associated Diagnosis Comments ACUPUNCTURE PLAN OF CARE Routine 10/23/2024 12:33 PM LINEN AIDE Other low back pain ACUPUNCTURE PLAN OF CARE Routine 10/01/2024 1:45 PM LINEN AIDE Other low back pain ACUPUNCTURE PLAN OF CARE Routine 10/01/2024 1:45 PM LINEN AIDE Other low back pain ACUPUNCTURE PLAN OF CARE Routine 10/01/2024 1:45 PM LINEN AIDE Other low back pain ACUPUNCTURE PLAN OF CARE Routine 10/01/2024 1:45 PM LINEN AIDE Other low back pain ACUPUNCTURE PLAN OF CARE Routine 10/01/2024 1:45 PM LINEN AIDE Other low back pain ACUPUNCTURE PLAN OF CARE Routine 10/01/2024 1:45 PM LINEN AIDE Other low back pain ACUPUNCTURE PLAN OF CARE Routine 09/29/2024 1:25 PM LINEN AIDE Other low back pain ACUPUNCTURE PLAN OF CARE Routine 09/08/2024 12:34 PM LINEN AIDE Other low back pain ACUPUNCTURE PLAN OF CARE Routine 08/31/2024 10:06 AM LINEN AIDE Other low back pain ACUPUNCTURE PLAN OF CARE Routine 08/25/2024 8:47 AM LINEN AIDE Other low back pain ACUPUNCTURE PLAN OF CARE Routine 08/18/2024 10:56 AM LINEN AIDE Other low back pain LIPID PANEL Today 11/11/2019 3:02 AM LINEN AIDE SCAN-COLONOSCOPY 02/20/2013 12:0 0 AM CDT XR MAMMO BILAT DIAG FFDM (IA) Routine 09/09/2008 7:40 AM LINEN AIDE Breast Pain Breast Lump from Last 3 Months or Most Recently Relevant to Health Maintenance Results * (ABNORMAL) Lipid Panel (11/11/2019 3:02 AM LINEN AIDE) Pathologist [facility] CHOLESTEROL,TOTAL 203(H) 100 - 199 mg/dL 11/11/2019 3:33 AM LINEN AIDE [facility] TRIGLYCERIDES 184(H) <150 mg/dL 11/11/2019 3:33 AM LINEN AIDE [facility] HDL CHOLESTEROL 43 >40 mg/dL 0 3:33 AM LINEN AIDE [facility] NON-HDL CHOLESTEROL 160(H) <145 mg/dl 11/11/2019 3:33 AM LINEN AIDE [facility] CHOL/HDL RATIO 4.72(H) <4.50 11/11/2019 3:33 AM LINEN AIDE [facility] LDL CHOLESTEROL 123 <=130 mg/dL 11/11/2019 3:33 AM LINEN AIDE [facility] PROVIDER ORDERED STATUS RANDOM 11/11/2019 3:33 AM LINEN AIDE [facility] Blood BLOOD SPECIMEN / Unknown Venipuncture / Unknown 11/11/2019 3:02 AM LINEN AIDE 11/11/2019 3:08 AM LINEN AIDE us Radha Saba MD CHEMISTRY Final R esult [facility] [address] [place] [address], [place] * SCAN-COLONOSCOPY (02/20/2013 12:00 AM CDT) Narrative 02/20/2013 12:00 AM CDT Procedure Note Scanner - 02/20/2013 12:00 AM CDT us Scanner OTHER Final Result * XR MAMMO BILAT DIAG FFDM (09/09/2008 7:40 AM LINEN AIDE) MAMMOGRAM ACR 2 Benign Finding Anatomical Region Laterality Modality BREASTS, Breast Left, Breast Right Bilateral Mammography 09/09/2008 7:40 AM LINEN AIDE Narrative 09/09/2008 10:13 AM LINEN AIDE BILATERAL FULL-FIELD DIAGNOSTIC DIGITAL MAMMOGRAPHY WITH COMPUTER-AIDED [...] Billing Address Personal/Family Self 1950 [phone] [place] [address] [place] [place] [facility] [place] PB ONLY [employer] [place] [place] HB ONLY MEDICARE PART B HB ONLY MEDICARE PART A HB ONLY [facility] ATTN: [place] [address] Advance Directives * Full Code (Latest Code Status on File) Date Activated Date Inactivated Comments 11/11/2019 2:00 AM 11/19/2019 4:22 PM * Full Code Date Activated Date Inactivated Comments 08/01/2017 5:10 PM 08/04/2017 3:31 PM * Full Code Date Activated Date Inactivated Comments 08/01/2017 5:44 AM 08/01/2017 3:54 PM Care Teams Coconut Cooker Relationship Specialty Start Date End Date Chirag Paz MD [address] [place] [address] PCP - General Internal Medicine 07/04/17 José Miguel Hall MD Psychiatry 10/14/13
[2024-11-04] MEDS: 0.9 % SODIUM CHLORIDE 1000 ml 1,000 ML IV (20:44)
--- NOTE | 2024-11-04 20:44 | ED.WEAKNESS ---
HPI - Weakness General Date Seen: 11/04/24 Chief complaint: Cough Stated complaint: nausea and dizziness Time Seen by Provider: 11/04/24 19:46 Source: patient and family Mode of arrival: ambulatory Limitations: no limitations History of Present Illness HPI Narrative: Patient is 74-year-old female who lives by herself in independent living at [facility], brought in by ambulance for weakness, she was very weak today, with a cough, she does not think she had a fever, but had some overall chills, she was so weak she had trouble getting from her bed to the bathroom which is basically 10 ft with a walker, she did think she would make it, so she had them call the ambulance to be brought in. She did not get the flu shot this year, so admits to me this could be the flu, the cough she says is been horrible today, she was able to drink some Gatorade, but has not taken any solids, she has had no nausea vomiting, associated this no diarrhea, no chest pain, and notes no dysuria or frequency. She does have a history of back surgery with weakness and 1 of her legs post back surgery . At however is stable and she no or lying weakness is which she notes. She also describes to me dizziness although the dizziness is not the room moving around or any unilateral weakness associated with this it is just which she describes is overall weakness MD Complaint: generalized weakness Location: generalized Migration: none Severity: severe Relieving factors: none Exacerbating factors: movement Associated symptoms: denies other symptoms Related Data Home Medications ?Medication ?Instructions ?Recorded ?Confirmed cholecalciferol (vitamin D3) 25 25 mcg PO QDAY 07/19/22 11/04/24 mcg (1,000 unit) capsule ibuprofen 200 mg capsule 400 mg PO Q8H PRN 07/19/22 11/04/24 mecobalamin (vitamin B12) 1,000 1,000 mcg PO QDAY 07/19/22 11/04/24 mcg chewable tablet Previous Rx's ?Medication ?Instructions ?Recorded amlodipine 5 mg tablet 5 mg PO QDAY Hypertension #90 tabs 12/02/23 estradiol 0.01% (0.1 mg/gram) 1 g vaginal 2XW #42.5 grams 01/15/24 vaginal cream (Estrace) Allergies Allergy/AdvReac Type Severity Reaction Status Date / Time oxycodone Allergy Severe Hallucinating Verified 11/03/24 10:18 & Disorientation shellfish derived Allergy Intermediate Difficulty Verified 11/03/24 10:18 Swallowing cat dander Allergy Mild Itchy Verified 11/03/24 10:18 eyes, Sneezing morphine AdvReac Intermediate Itching Verified 11/03/24 10:18 gabapentin AdvReac Mild Dizziness Verified 11/03/24 10:18 Review of Systems Status of ROS: Reports: 10 or more systems reviewed and unremarkable except as noted in History and below PFSH [facility] Medical History Hypertension ?I10 - Essential (primary) hypertension (ICD-10) Hyperlipidemia ?E78.5 - Hyperlipidemia, unspecified (ICD-10) Osteopenia ?M85.80 - Other specified disorders of bone density and structure, unspecified site (ICD-10) History of adenomatous polyp of colon ?Z86.010 - Personal history of colonic polyps (ICD-10) Myelomalacia of cervical cord ?G95.89 - Other specified diseases of spinal cord (ICD-10) Lumbar degenerative disc disease ?M51.36 - Other intervertebral disc degeneration, lumbar region (ICD-10) AVM (arteriovenous malformation) brain ?Q28.2 - Arteriovenous malformation of cerebral vessels (ICD-10) 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 ?Z86.79 - Personal history of other diseases of the circulatory system (ICD-10) History of migraine headaches ?Z86.69 - Personal history of other diseases of the nervous system and sense organs (ICD-10) History of hepatitis (07/26/18) ?Z86.19 - Personal history of other infectious and parasitic diseases (ICD-10) GERD (gastroesophageal reflux disease) ?K21.9 - Gastro-esophageal reflux disease without esophagitis (ICD-10) Major depressive disorder ?F32.9 - Major depressive disorder, single episode, unspecified (ICD-10) Peripheral neuropathy ?G62.9 - Polyneuropathy, unspecified (ICD-10) Obesity ?E66.9 - Obesity, unspecified (ICD-10) Anxiety ?F41.9 - Anxiety disorder, unspecified (ICD-10) Surgical History History of lumbar fusion (06/07/22) ?Z98.1 - Arthrodesis status (ICD-10) History of craniotomy (11/16/19) ?Z98.890 - Other specified postprocedural states (ICD-10) History of cholecystectomy ?Z90.49 - Acquired absence of other specified parts of digestive tract (ICD-10) History of blepharoplasty (01/07/19) ?Z98.890 - Other specified postprocedural states (ICD-10) History of phacoemulsification of cataract of both eyes with intraocular lens implantation (2015) ?Z98.41 - Cataract extraction status, right eye (ICD-10) ?Z98.42 - Cataract extraction status, left eye (ICD-10) ?Z96.1 - Presence of intraocular lens (ICD-10) History of reduction of closed fracture (03/09/20) ?Z87.81 - Personal history of (healed) traumatic fracture (ICD-10) History of total right hip arthroplasty (11/07/20) ?Z96.641 - Presence of right artificial hip joint (ICD-10) History of cervical spinal surgery (~2016) ?Z98.890 - Other specified postprocedural states (ICD-10) Family History Father Coronary artery disease Diabetes Colon cancer Mother Breast cancer Social History Narrative: former smoker ( 2020) What is your current living situation?: I presently have a place to live Problems where you live: no known problems In the past 12 months, utilities in danger of being shut off: no In past 12 months, lack of transportation kept you from medical appts, meetings, work, or getting things needed for daily living: no In the past 12 mos, have been you worried that your food would run out before you had money to buy more?: never true In the past 12 mos, the food you bought just didn't last and you didn't have money to buy more?: never true Smoking Status: Former smoker What tobacco products do you use: cigarettes Smoking quit date/years: <= 15 years ago How often do you have a drink containing alcohol: 2-4 times a month AUDIT-C Alcohol total score: 2 Non-prescribed substance use: marijuana (any form) Non-prescribed substance use details: 10 mg medical marijuana; 12/18/23 Caffeine: Yes How often does anyone, including family, friends and others, physically hurt you: never How often does anyone, including family, friends and others, insult or talk down to you: never How often does anyone, including family, friends and others, threaten you with harm: never How often does anyone, including family, friends and others, scream or curse at you: never Exam Narrative: Exam Narrative: Patient is seen in room 6 she is pleasant and alert speaking to me normally absolutely nontoxic in no distress, her vital signs are listed and all within fairly normal limits I would describe. Pupils are equal round reactive to light there is no scleral icterus redness TMs are normal oropharynx normal hydration status is normal, cranial nerves 3-12 are normal, she has a hard time pulling herself up to sit up, and without help she can not keep herself up. Her chest is good air entry bilateral with no wheezing crackles noted her heart sounds are normal, no clicks murmurs or gallops, her abdomen is soft and obese with scars from a with looks like an open cholecystectomy in a midline incision these are well healed common bowel sounds are normal she is able to move move her lower extremities by lifting them off the table, skin reveals no petechiae rashes and she has +1 edema bilaterally. Const: Vital Signs, click to edit/add: Vital Signs - 24 hr 11/04/24 19:33 11/04/24 20:52 11/04/24 21:00 Temperature 97.7 F Pulse Rate 97 98 Pulse Rate [Pulse Oximeter] 102 H Respiratory Rate 18 Blood Pressure [Ri ght Upper Arm] 149/92 H Pulse Oximetry 93 94 93 Oxygen Delivery Me thod Room Air 11/04/24 21:15 11/04/24 21:32 Temperature Pulse Rate 93 Pulse Rate [Pulse Oximeter] 98 Respiratory Rate 16 16 Blood Pressure [Ri ght Upper Arm] 150/92 H Pulse Oximetry 95 94 Oxygen Delivery Me thod Room Air Documenting provider has reviewed patient's vital signs: yes Course Vital Signs Vital signs: Initial Vital Signs Temperature 97.7 F 11/04/24 19:33 Temperature Source Temporal Artery Scan 11/04/24 19:33 Pulse Rate 102 H 11/04/24 19:33 Respiratory Rate 18 11/04/24 19:33 Blood Pressure 149/92 H 11/04/24 19:33 Blood Pressure Mean 111 H 11/04/24 19:33 Blood Pressure Position Supine 11/04/24 19:33 Pulse Oximetry 93 11/04/24 19:33 Oxygen Delivery Method Room Air 11/04/24 19:33 Vital Signs Temperature 97.7 F 11/04/24 19:33 Pulse Rate 102 H 11/04/24 19:33 Respiratory Rate 18 11/04/24 19:33 Blood Pressure 149/92 H 11/04/24 19:33 Pulse Oximetry 93 11/04/24 19:33 Oxygen Delivery Method Room Air 11/04/24 19:33 Temperature 97.7 F 11/04/24 19:33 Pulse Rate 98 11/04/24 21:32 Respiratory Rate 16 11/04/24 21:32 Blood Pressure 150/92 H 11/04/24 21:32 Pulse Oximetry 94 11/04/24 21:32 Oxygen Delivery Method Room Air 11/04/24 21:32 Medications Administered Medications: Discontinued Medications Generic Name Dose Route Start Last Admin Trade Name Freq PRN Reason Stop Dose Admin Sodium Chloride 1,000 mls @ 1,000 mls/hr 11/04/24 20:30 11/04/24 22:02 0.9 % Sodium Chloride 1000 Ml IV 11/04/24 21:29 Infused .Q1H CORNELIUS Infusion MDM - Weakness MDM Narrative Medical decision making narrative: Life-threatening differential diagnosis considered include stroke, coronary artery disease, pneumonia, and heart failure. Other differential diagnosis include but are not limited to electrolyte imbalances, anemia, medication reactions, and urinary tract infection Medical Records Attestation: I reviewed the patient's medical records. Lab Data Attestation: I reviewed the patient's lab results. Labs: Lab Results 11/04/24 11/04/24 11/04/24 Range/Units 19:35 20:45 20:51 WBC 5.58 (4.50-11.00) K/uL RBC 5.92 H (4.00-5.20) m/uL Hgb 16.2 H (12.0-16.0) gm/dL Hct 49.9 (33.0-51.0) % MCV 84 (80-100) fL MCH 27 (26-34) pg MCHC 33 (32-36) gm/dL RDW Coeff of Candace 14.1 (11.5-15.5) % Plt Count 171 (140-440) K/uL Neut % (Auto) 73.8 H (42.0-72.0) % Lymph % (Auto) 14.3 L (20-44) % [place] % (Auto) 10.8 (0.0-11.0) % Eos % (Auto) 0.0 (0.0-7.0) % Baso % (Auto) 0.7 (0.0-3.0) % Neut # (Auto) 4.10 (1.7-7.0) K/uL Lymph # (Auto) 0.80 L (0.90-2.90) K/uL [place] # (Auto) 0.60 (0.00-0.90) K/UL Eos # (Auto) 0.00 (0.00-0.50) K/uL Baso # (Auto) 0.04 (0.00-0.30) K/uL Abs Immat Gran (auto) 0.02 (0.00-0.30) K/uL Imm/Tot Granulo (auto) 0.4 % Sodium 137 (135-149) mmol/L Potassium 4.3 (3.6-5.1) mmol/L Chloride 103 (96-114) mmol/L Carbon Dioxide 24 (20-32) mmol/L Anion Gap 10 (7-15) mEq/L BUN 14 (7-30) mg/dL Creatinine 0.7 (0.5-1.5) mg/dL Estimated Creat Clear 37.24 Estimated GFR 91 ml/min Glucose 124 H (60-115) mg/dL Calcium 9.8 (8.4-10.6) mg/dL Troponin I < 0.01 L (0.01-0.04) ng/mL Procalcitonin 0.06 (<0.50) ng/mL Urine Color (Yellow) Urine Appearance (Clear) Urine pH (5.0-8.5) Ur Specific [place] (1.000-1.030) Urine Protein (Negative) Urine Glucose (UA) (Negative) Urine Ketones (Negative) Urine Blood (Negative) Urine Nitrite (Negative) Urine Bilirubin (Negative) Urine Urobilinogen (0.2-1.0) Ur Leukocyte Esterase (Negative) Urine RBC (0-2) Urine WBC (0-5) Ur Squamous Epith Cells (None-Few) Urine Bacteria (None) SARS-CoV-2 (PCR) Negative SARS-CoV-2 (Negative) Influenza Type A (PCR) Negative PCR FLU A (Negative) Influenza Type B (PCR) Negative PCR FLU B (Negative) RSV (PCR) Negative PCR RSV (Negative) Lab Acknowledgement Test Added 11/04/24 Range/Units Unknown WBC (4.50-11.00) K/uL RBC (4.00-5.20) m/uL Hgb (12.0-16.0) gm/dL Hct (33.0-51.0) % MCV (80-100) fL MCH (26-34) pg MCHC (32-36) gm/dL RDW Coeff of Candace (11.5-15.5) % Plt Count (140-440) K/uL Neut % (Auto) (42.0-72.0) % Lymph % (Auto) (20-44) % [place] % (Auto) (0.0-11.0) % Eos % (Auto) (0.0-7.0) % Baso % (Auto) (0.0-3.0) % Neut # (Auto) (1.7-7.0) K/uL Lymph # (Auto) (0.90-2.90) K/uL [place] # (Auto) (0.00-0.90) K/UL Eos # (Auto) (0.00-0.50) K/uL Baso # (Auto) (0.00-0.30) K/uL Abs Immat Gran (auto) (0.00-0.30) K/uL Imm/Tot Granulo (auto) % Sodium (135-149) mmol/L Potassium (3.6-5.1) mmol/L Chloride (96-114) mmol/L Carbon Dioxide (20-32) mmol/L Anion Gap (7-15) mEq/L BUN (7-30) mg/dL Creatinine (0.5-1.5) mg/dL Estimated Creat Clear Estimated GFR ml/min Glucose (60-115) mg/dL Calcium (8.4-10.6) mg/dL Troponin I (0.01-0.04) ng/mL Procalcitonin (<0.50) ng/mL Urine Color Yellow (Yellow) Urine Appearance Clear (Clear) Urine pH 7.0 (5.0-8.5) Ur Specific [place] 1.020 (1.000-1.030) Urine Protein Negative (Negative) Urine Glucose (UA) Negative (Negative) Urine Ketones Trace A (Negative) Urine Blood Negative (Negative) Urine Nitrite Negative (Negative) Urine Bilirubin Negative (Negative) Urine Urobilinogen 0.2 (0.2-1.0) Ur Leukocyte Esterase Negative (Negative) Urine RBC 0-2 (0-2) Urine WBC 0-2 (0-5) Ur Squamous Epith Cells Few (None-Few) Urine Bacteria None (None) SARS-CoV-2 (PCR) (Negative) Influenza Type A (PCR) (Negative) Influenza Type B (PCR) (Negative) RSV (PCR) (Negative) Lab Acknowledgement Imaging Data Chest x-ray: Attestation: I have reviewed the pertinent imaging results. My impression: Nothing acute Radiologist's impression: Patient: Harleen Gibson MR#: [id number] : 1950 Acct:[id number] Loc: ED Service Date: 11/04/[address]: Ordering Physician: Brandon Jeong M.D. Date of Service: 11/04/24 Procedure(s): XR chest 2V Accession Number(s): [id number] cc: Chirag Paz M.D.; Brandon Jeong M.D.~ For Patients: As a result of the Century Cures Act, medical imaging exams and procedure reports are released immediately into your electronic medical record. You may view this report before your referring provider. If you have questions, please contact your health care provider. INDICATION: Cough, dizziness. TECHNIQUE: Chest 2 views. COMPARISON: 03/31/2017. FINDINGS: Cardiovascular and mediastinum: Normal heart size. Tortuous and atherosclerotic thoracic aorta. New masslike opacity along the medial left hemidiaphragm. Lungs and pleural spaces: No focal consolidation, pleural effusion, or pneumothorax. Bones and soft tissues: Cholecystectomy clips. Partially imaged lumbar spine fusion changes. Multilevel postsurgical changes of the cervical spine. No acute findings. IMPRESSION: 1. No evidence of an acute pulmonary process. 2. New masslike opacity along the medial left hemidiaphragm, possibly a hiatal hernia. Recommend CT for further evaluation. Dictated by Ryne Borja MD @ 11/04/2024 8:43:31 PM (Electronically Sig ECG Data Attestation: I personally reviewed and interpreted this ECG as follows: ECG interpretation date: 11/04/24 ECG interpretation time: 20:58 Prior ECG tracings: available for review Interpretation: EKG looks like normal sinus rhythm, ventricular rates 97, no acute ST wave changes, QRS is normal at 76 milliseconds QT is 336 and QTC is 426. In comparison to old EKG I can see from 05/24/2022 there has been no changes. Assessment: No acute changes, mild nonspecific unchanged from previous Discharge Plan Discharge Clinical Impression: Weakness, Viral illness Patient Disposition: Home, Self-Care Condition: Stable Instructions: Viral Syndrome (ED), Weakness (ED) Additional Instructions: Home rest, Tylenol for your discomfort lots of fluids, here weakness gets progressive your not able to get around, then you need to come back to the emergency department. Sleeping is fine, Need to follow-up with your primary care physician, with a CT scan of your chest, it likely shows a hiatal hernia but the radiologist wants to be safe to make sure there is not a mass there. Activity Level: Light activity Discharge Diet: Regular Prescriptions: No Action cholecalciferol (vitamin D3) 25 mcg (1,000 unit) capsule 25 mcg PO QDAY ibuprofen 200 mg capsule 400 mg PO Q8H PRN mecobalamin (vitamin B12) 1,000 mcg tablet,chewable 1,000 mcg PO QDAY amlodipine 5 mg tablet 5 mg PO QDAY Qty: 90 3RF estradiol [Estrace] 0.01 % (0.1 mg/gram) cream 1 g vaginal 2XW Qty: 42.5 4RF Rx Instructions: Use nightly x 2 weeks. Then switch to 2x per week. Follow Up/Referrals: Chirag Paz MD [Primary Care Provider] - Stand Alone Forms: eduFire Info Instructions
[2024-11-04 20:52] VITALS: PULSE 97; O2SAT 94
[2024-11-04 20:53] LABS: Basophils Absolute Auto 0.04 K/uL (0.00-0.30); Basophils Percent Auto 0.7 % (0.0-3.0); Hematocrit 49.9 % (33.0-51.0); Hemoglobin* 16.2 gm/dL (12.0-16.0); Immature Granulocytes Abs Auto 0.02 K/uL (0.00-0.30); Immature Granulocytes Pct Auto 0.4 %; Lymphocytes Percent Auto 14.3 % (20-44); Mean Corpuscular HGB Conc 33 gm/dL (32-36); Mean Corpuscular Hemoglobin 27 pg (26-34); Mean Corpuscular Volume 84 fL (80-100); Monocytes Percent Auto 10.8 % (0.0-11.0); Neutrophils Percent Auto 73.8 % (42.0-72.0); Platelet Count* 171 K/uL (140-440); RDW Coefficient of Variation % 14.1 % (11.5-15.5); Red Blood Count 5.92 m/uL (4.00-5.20); White Blood Count* 5.58 K/uL (4.50-11.00)
[2024-11-04 21:00] VITALS: PULSE 98; O2SAT 93
[2024-11-04 21:05] LABS: Chloride* 103 mmol/L (96-114)
[2024-11-04 21:06] LABS: Potassium* 4.3 mmol/L (3.6-5.1); Slide Review Reflex No; Sodium* 137 mmol/L (135-149)
[2024-11-04 21:08] LABS: Anion Gap 10 mEq/L (7-15); Carbon Dioxide* 24 mmol/L (20-32); Creatinine* 0.7 mg/dL (0.5-1.5); Est. Creatinine Clearance* 37.24; Estimated Glomerular Filt Rate 91 ml/min
[2024-11-04 21:09] LABS: Blood Urea Nitrogen* 14 mg/dL (7-30); Calcium* 9.8 mg/dL (8.4-10.6); Glucose* 124 mg/dL (60-115)
[2024-11-04 21:15] VITALS: PULSE 93; RESP 16; O2SAT 95
[2024-11-04 21:23] LABS: Troponin I* < 0.01 ng/mL (0.01-0.04)
[2024-11-04 21:26] LABS: Procalcitonin* 0.06 ng/mL (<0.50)
[2024-11-04 21:30] LABS: Appearance Urine Clear (Clear); Bilirubin Urine Negative (Negative); Blood Urine Negative (Negative); Color Urine Yellow (Yellow); Glucose Urine Negative (Negative); Ketones Urine Trace (Negative); Leukocyte Esterase Urine Negative (Negative); Nitrite Urine Negative (Negative); Protein Urine Negative (Negative); Urobilinogen Urine 0.2 (0.2-1.0)
[2024-11-04 21:32] VITALS: BP 150/92; PULSE 98; RESP 16; O2SAT 94
[2024-11-04 21:39] LABS: RBC Urine 0-2 (0-2)
[2024-11-04 21:40] LABS: Squamous Epithelial Cell Urine Few (None-Few); WBC Urine 0-2 (0-5)
== END 2024-11-04 23:23 | disposition home or self-care (01) ==
PROVIDERS: Emergency Provider Family Medicine; PCP Internal Medicine
DX: R53.1 Weakness (principal); B34.9 Viral infection, unspecified
CPT/HCPCS: 36415; 71046; 80048; 81001; 84145; 84484; 85025; 87631; 93005; 94761; 96360; 99284; 99285; J7030

== ENCOUNTER 2024-11-04 23:22 | Outpatient (CLI) | payer MEDICARE, BC, SELFPAY | END 2024-11-04 23:23 | disposition home or self-care (01) | LOC: AMB 11-09 08:29 | PROVIDERS: PCP Internal Medicine; Visit Provider Emergency Medicine | DX: R53.1 Weakness (principal) | CPT/HCPCS: A0425; A0428 ==

== ENCOUNTER 2025-04-06 13:55 | Outpatient (CLI) | payer MEDICARE, BC, SELFPAY ==
--- NOTE | 2025-04-06 14:30 | CRLHL7_ITS ---
For Patients: As a result of the Century Cures Act, medical imaging exams and procedure reports are released immediately into your electronic medical record. You may view this report before your referring provider. If you have questions, please contact your health care provider. INDICATION: Low back pain. COMPARISON: 03/30/2022. TECHNIQUE: Sagittal T1, T2, and STIR sequences. Axial T1 and T2 weighted sequences. FINDINGS: Grade 1 anterolisthesis of L4 on L5 measures approximately 5 mm. Otherwise, normal alignment. No fractures. Postoperative changes diskectomy interbody fusion L2-3 through L5-S1. Posterior fusion hardware L2-S1. T11-12: Disc degeneration posterior disc herniation. Effacement of the ventral thecal sac. Mild narrowing of spinal canal. Mild narrowing of the bilateral foramina. T12-L1: Mild disc degeneration. No spinal canal neural foraminal narrowing. L1-2: Stable disc degeneration. Posterior disc bulge. No narrowing of spinal canal. No neural foraminal narrowing. L2-3: Postoperative changes. Residual posterior disc bulging. Mild narrowing of spinal canal. Allowing for artifact, there is mild narrowing of the left neural foramen. No narrowing of the right neural foramen. L3-4: Postop changes. No narrowing of spinal canal. No neural foraminal narrowing. L4-5: Postoperative changes. Grade 1 anterolisthesis. Unroofed posted disc bulge. There is moderate narrowing of the spinal canal. Bilateral subarticular recess narrowing potential impingement of the traversing L5 nerve roots. Oblique orientation of bilateral femoral moderate narrowing. L5-S1: Postoperative changes. Posterior disc bulge. No narrowing of spinal canal. No impingement of the traversing S1 nerve roots. Mild right and moderate left neural foraminal narrowing. Degenerative changes of the SI joints. Right renal cyst. IMPRESSION: 1. Grade 1 anterolisthesis of L4 on L5. Otherwise normal alignment. No fractures 2. Interval postop changes L2-3 through L5-S1. 3. Stable lumbar spondylosis 4. At L2-3, mild narrowing of the spinal canal and left neural foramina 5. At L4-5, moderate narrowing of the spinal canal. Potential impingement of the traversing L5 nerve roots. Moderate narrowing of the bilateral neural foramina 6. At L5-S1, mild right and moderate left neural foraminal narrowing. Dictated by Demetri Wilson MD @ 04/07/2025 12:12:58 PM (Electronically Signed)
== END 2025-04-06 13:56 | disposition home or self-care (01) ==
LOC: MRI 13:57
PROVIDERS: PCP Internal Medicine; Visit Provider Internal Medicine
DX: M54.50 Low back pain, unspecified (principal); M51.26 Other intervertebral disc displacement, lumbar region; M51.27 Other intervertebral disc displacement, lumbosacral region; R29.898 Other symptoms and signs involving the musculoskeletal system
CPT/HCPCS: 72148

== ENCOUNTER 2025-05-04 09:50 | Outpatient (CLI) | payer MEDICARE, BC, SELFPAY | END 2025-05-04 09:51 | disposition home or self-care (01) | LOC: NFLDREF 05-07 18:49 | PROVIDERS: PCP Internal Medicine; Referring Provider Internal Medicine; Visit Provider Internal Medicine | DX: E78.5 Hyperlipidemia, unspecified (principal) | CPT/HCPCS: 80053; 80061 ==

== ENCOUNTER 2025-06-11 07:32 | Outpatient (CLI) | payer MEDICARE, BC, SELFPAY | END 2025-06-11 07:33 | disposition home or self-care (01) | LOC: INJ CL 07:33 | PROVIDERS: PCP Internal Medicine; Visit Provider Family Medicine | DX: M53.3 Sacrococcygeal disorders, not elsewhere classified (principal) | CPT/HCPCS: 27096; J0702; Q9966 ==

== ENCOUNTER 2025-07-01 15:41 | Outpatient (CLI) | payer MEDICARE, BC, SELFPAY | END 2025-07-01 15:42 | disposition home or self-care (01) | LOC: NFLDREF 15:42 | PROVIDERS: PCP Internal Medicine; Visit Provider Physician Assistant | DX: R23.2 Flushing (principal); R53.83 Other fatigue | CPT/HCPCS: 84443 ==